=== PATIENT | female | born 1945 | race African-American/Black ===

== ENCOUNTER → 2017-01-03 | Outpatient (CLI) | payer MEDICARE | LOC: WI 08:32 | PROVIDERS: ATTEND Physician Assistant | DX: Z12.31 Encounter for screening mammogram for malignant neoplasm of breast (principal) | CPT/HCPCS: 77067; G0202 ==

== ENCOUNTER 2017-03-19 17:16 | Inpatient (IN) | payer MEDICARE ==
[2017-03-19] MEDS ORDERED: MORPHINE SULFATE 10 MG/ML INJ IV ONE (17:52)
[2017-03-19] MEDS ORDERED: ONDANSETRON HCL INJ/PF 4 MG/2 ML SDV IV ONE (17:53)
--- NOTE | 2017-03-19 17:55 | ER Document Report ---
ED Fall - General Chief Complaint: Fall Injury Stated Complaint: FALL/HIP PAIN Mode of Arrival: Wheelchair Information source: Patient Notes: This is a 71-year-old female who presents to the ER with left hip pain. She states that at about 1530 today she fell while gardening and landed on her left hip. She has had difficulty ambulating since and has had extreme pain. She denies hitting her head or loss of consciousness. She has had no chest pain or shortness of breath. She has no prior history of hip fracture. TRAVEL OUTSIDE OF THE [place] IN LAST 30 DAYS: No - Related data Allergies/Adverse Reactions: No Known Allergies Allergy (Verified 03/19/17 17:25) Past Medical History - Social History Smoking Status: Unknown if Ever Smoked Family History: Reviewed & Not Pertinent Patient has suicidal ideation: No Patient has homicidal ideation: No - Past Medical History Cardiac Medical History: Reports: Hx Hypercholesterolemia, Hx Hypertension Pulmonary Medical History: Reports: Hx Bronchitis Renal/ Medical History: Denies: Hx Peritoneal Dialysis GI Medical History: Reports: Hx Diverticulitis, Hx Gastroesophageal Reflux Disease Past Surgical History: Reports: Hx Cholecystectomy, Hx Hysterectomy, Hx Orthopedic Surgery, Hx Tubal Ligation - Immunizations Hx Diphtheria, Pertussis, Tetanus Vaccination: Yes Review of Systems - Review of Systems Constitutional: No symptoms reported. denies: Chills, Fever EENT: No symptoms reported Cardiovascular: No symptoms reported. denies: Chest pain, Palpitations Respiratory: No symptoms reported Gastrointestinal: No symptoms reported Genitourinary: No symptoms reported Musculoskeletal: See HPI Skin: No symptoms reported Hematologic/Lymphatic: No symptoms reported Neurological/Psychological: No symptoms reported. denies: Lost consciousness, Headaches Physical Exam - Vital signs Vitals: Temp Pulse Resp BP Pulse Ox 99.2 F 104 H 24 H 110/46 L 94 03/19/17 17:28 03/19/17 17:28 03/19/17 17:28 03/19/17 17:28 03/19/17 17:28 - Notes Notes: PHYSICAL EXAMINATION: GENERAL: Well-appearing, well-nourished and in mild to moderate distress secondary to left hip pain HEAD: Atraumatic, normocephalic. EYES: Pupils equal round and reactive to light, extraocular movements intact, sclera anicteric, conjunctiva are normal. ENT: nares patent, oropharynx clear without exudates. Moist mucous membranes. NECK: Normal range of motion, supple without lymphadenopathy LUNGS: Breath sounds clear to auscultation bilaterally and equal. No wheezes rales or rhonchi. HEART: Regular rate and rhythm without murmurs ABDOMEN: Soft, nontender, normoactive bowel sounds. No guarding, no rebound. No masses appreciated. EXTREMITIES: LLE: TTP left inguinal/hip area. No external swelling or deformity. Unable to ROM at hip secondary to pain.No shortening or external rotation of LLE. DNVI. NEUROLOGICAL: Cranial nerves grossly intact. No gross focal motor or sensory deficits appreciated PSYCH: Normal mood, normal affect. SKIN: Warm, Dry, normal turgor, no rashes or lesions noted. Course - Vital Signs Vital signs: Temp Pulse Resp BP Pulse Ox 98.2 F 81 18 114/55 L 95 03/19/17 21:40 03/19/17 21:40 03/19/17 21:40 03/19/17 21:40 03/19/17 21:40 - Laboratory Result Diagrams: 03/19/17 18:00 03/19/17 18:00 Laboratory results interpreted by me: 03/19/17 03/19/17 18:00 18:00 RBC 3.46 L Hgb 11.5 L Hct 33.3 L Sodium 134.3 L Potassium 3.4 L Chloride 96 L - Diagnostic Test Radiology reviewed: Reports reviewed - nondisplaced L femoral neck fracture Discharge - Discharge Clinical Impression: Closed left hip fracture Qualifiers: Encounter type: initial encounter Qualified Code(s): S72.002A - Fracture of unspecified part of neck of left femur, initial encounter for closed fracture Condition: Stable Disposition: ADMITTED INPATIENT Admitting Provider: Hospitalist - Dr. Guerrero Unit Admitted: Medical Floor
[2017-03-19 18:27] LABS: ABSOLUTE LYMPHOCYTES (AUTO) 1.9 10^3/uL (0.5-4.7); ABSOLUTE MONOCYTES (AUTO) 0.6 10^3/uL (0.1-1.4); ABSOLUTE NEUT (AUTO) 7.2 10^3/uL (1.7-8.2); BASOPHILS % (AUTO) 0.4 % (0-2); EOSINOPHILS % (AUTO) 0.5 % (0-6); HEMATOCRIT 33.3 % (36.0-47.0); HEMOGLOBIN 11.5 g/dL (12.0-15.5); HGB HCT DIFFERENCE 1.2; LYMPHOCYTES % (AUTO) 19.3 % (13-45); MEAN CORPUSCULAR HEMOGLOBIN 33.3 pg (27.0-33.4); MEAN CORPUSCULAR HGB CONC 34.7 g/dL (32.0-36.0); MEAN CORPUSCULAR VOLUME 96 fl (80-97); MONOCYTES % (AUTO) 6.3 % (3-13); RED BLOOD COUNT 3.46 10^6/uL (3.72-5.28); RED CELL DISTRIBUTION WIDTH 13.6 % (11.5-14.0); SEGMENTED NEUTROPHILS % (AUTO) 73.5 % (42-78); WHITE BLOOD COUNT 9.8 10^3/uL (4.0-10.5)
[2017-03-19 18:41] LABS: ALANINE AMINOTRANSFERASE 31 U/L (9-52); ALBUMIN 3.7 g/dL (3.5-5.0); ALKALINE PHOSPHATASE 101 U/L (38-126); ANION GAP 11 (5-19); ASPARTATE AMINO TRANSFERASE 24 U/L (14-36); BILIRUBIN,DIRECT 0.3 mg/dL (0.0-0.4); BILIRUBIN,TOTAL 0.8 mg/dL (0.2-1.3); BLOOD UREA NITROGEN 20 mg/dL (7-20); CALCIUM 9.2 mg/dL (8.4-10.2); CARBON DIOXIDE 27 mmol/L (22-30); CHLORIDE 96 mmol/L (98-107); CREATININE RESULT 0.89 mg/dL (0.52-1.25); GLUCOSE 91 mg/dL (75-110); POTASSIUM 3.4 mmol/L (3.6-5.0); SODIUM 134.3 mmol/L (137-145); TOTAL PROTEIN 7.1 g/dL (6.3-8.2)
[2017-03-19 19:12] LABS: PROTHROMBIN TIME 14.8 SEC (11.4-15.4)
[2017-03-19 19:13] LABS: PARTIAL THROMBOPLASTIN TIME 23.6 SEC (23.5-35.8)
[2017-03-19] MEDS ORDERED: HYDROMORPHONE HCL INJ/PF 2 MG/ML AMPULE IV ONE (20:04)
[2017-03-19] MEDS ORDERED: IPRATROPIUM/ALBUTEROL 0.5-2.5 MG/3 ML AMPUL NEB PRN (20:25)
[2017-03-19] MEDS ORDERED: MAG HYDROX/AL HYDROX/SIMETH SUSP 30 ML UDCUP PO PRN (20:25)
[2017-03-19] MEDS ORDERED: MAGNESIUM HYDROXIDE SUSP 30 ML UDCUP PO PRN (20:25)
[2017-03-19] MEDS ORDERED: HYDROMORPHONE HCL INJ/PF 2 MG/ML AMPULE IV PRN ×2 (20:30)
[2017-03-19] MEDS ORDERED: KETOROLAC TROMETHAMINE INJ/PF 30 MG/1 ML SDV IV ONE (20:31)
[2017-03-19] MEDS ORDERED: KETOROLAC TROMETHAMINE INJ/PF 30 MG/1 ML SDV IV PRN (20:31)
[2017-03-20] MEDS: HEPARIN SOD (PORCINE) 5,000 UNIT/ML 1 ML SYRINGE SUBCUT SCH ×4 (02:24→22:52)
[2017-03-20 04:46] LABS: ABSOLUTE BASOPHILS # (AUTO) 0.1 10^3/uL (0.0-0.2); ABSOLUTE EOSINOPHILS # (AUTO) 0.2 10^3/uL (0.0-0.6); ABSOLUTE LYMPHOCYTES (AUTO) 1.6 10^3/uL (0.5-4.7); ABSOLUTE MONOCYTES (AUTO) 0.6 10^3/uL (0.1-1.4); ABSOLUTE NEUT (AUTO) 4.6 10^3/uL (1.7-8.2); BASOPHILS % (AUTO) 0.9 % (0-2); EOSINOPHILS % (AUTO) 2.2 % (0-6); HEMATOCRIT 33.1 % (36.0-47.0); HEMOGLOBIN 11.4 g/dL (12.0-15.5); HGB HCT DIFFERENCE 1.1; LYMPHOCYTES % (AUTO) 22.4 % (13-45); MEAN CORPUSCULAR HEMOGLOBIN 33.1 pg (27.0-33.4); MEAN CORPUSCULAR HGB CONC 34.6 g/dL (32.0-36.0); MEAN CORPUSCULAR VOLUME 96 fl (80-97); MONOCYTES % (AUTO) 8.1 % (3-13); RED BLOOD COUNT 3.46 10^6/uL (3.72-5.28); RED CELL DISTRIBUTION WIDTH 13.5 % (11.5-14.0); SEGMENTED NEUTROPHILS % (AUTO) 66.4 % (42-78); WHITE BLOOD COUNT 6.9 10^3/uL (4.0-10.5)
[2017-03-20 05:07] LABS: ANION GAP 10 (5-19); BLOOD UREA NITROGEN 15 mg/dL (7-20); CALCIUM 8.8 mg/dL (8.4-10.2); CARBON DIOXIDE 27 mmol/L (22-30); CHLORIDE 101 mmol/L (98-107); CREATININE RESULT 0.79 mg/dL (0.52-1.25); GLUCOSE 95 mg/dL (75-110); POTASSIUM 3.7 mmol/L (3.6-5.0); SODIUM 137.5 mmol/L (137-145)
[2017-03-20] MEDS ORDERED: FLUTICASONE NASAL SPRAY 50 MCG/SPRY 120 SPRAY/16 GM NASL PRN (07:53)
[2017-03-20] MEDS ORDERED: ONDANSETRON 4 MG TAB.RAPDIS PO PRN (07:53)
[2017-03-20] MEDS ORDERED: (PENDING PHARMACY ID) (Pramipexole Di-Hcl [Mirapex] 0.125 MG) PO PRN (07:53)
[2017-03-20] MEDS: SUCRALFATE 1 GM TABLET PO SCH ×4 (08:57→22:51)
[2017-03-20] MEDS ORDERED: LUT PO SCH (10:00)
[2017-03-20] MEDS ORDERED: MULTIVITAMINS W MINERALS PO SCH (10:00)
[2017-03-20] MEDS ORDERED: (PENDING PHARMACY ID) (Valsartan/Hydrochlorothiazide [Diovan Hct 160-25 Mg Tablet] 1 TAB) PO SCH (10:00)
[2017-03-20] MEDS ORDERED: (PENDING PHARMACY ID) (Potassium Chloride [Potassium Chloride] 10 MEQ) PO SCH (10:00)
--- NOTE | 2017-03-20 10:23 | EKG REPORT ---
SEVERITY:- BORDERLINE ECG - SINUS RHYTHM BORDERLINE T WAVE ABNORMALITIES : Confirmed by: Caity Vera 20-Mar-2017 10:22:43
[2017-03-20] MEDS: FLUTICASONE PROPIONATE HFA 110 MCG/PUFF 12 GM MDI IH SCH ×2 (10:45→19:50)
[2017-03-20] MEDS: ALBUTEROL SULFATE HFA (90 MCG/PUFF) 200 PUFF/8.5 GM MDI IH SCH ×3 (10:49→19:50)
--- NOTE | 2017-03-20 11:46 | PDOC PROGRESS REPORT ---
Subjective Progress Note for:: 03/20/17 Subjective:: Patient seen on morning rounds. She is presently resting in bed sleeping. Her daughter is at the bedside. Patient awakens easily to verbal stimuli. She is complaining of mild to moderate pain in her left hip. She is presently nothing by mouth awaiting surgery this afternoon with Dr. Alexandra Belcher. She denies any other complaints the present time. She denies any chest pain, cough, shortness breath, or dyspnea. She denies any nausea, vomiting, abdominal pain or diarrhea. Rest of the review of systems is negative. Physical Exam Vital Signs: Temp Pulse Resp BP Pulse Ox 99.7 F 86 16 136/60 H 93 03/20/17 07:00 03/20/17 07:40 03/20/17 07:00 03/20/17 07:00 03/20/17 07:00 Intake & Output 03/19/17 03/20/17 03/21/17 06:59 06:59 06:59 Intake Total 0 Output Total 1900 Balance -1900 Weight 72.7 kg General appearance: PRESENT: no acute distress, thin, well-developed, well- nourished Head exam: PRESENT: atraumatic, normocephalic Eye exam: PRESENT: conjunctiva pink, EOMI, PERRLA. ABSENT: scleral icterus Ear exam: PRESENT: normal external ear exam Mouth exam: PRESENT: moist, tongue midline Neck exam: ABSENT: carotid bruit, JVD, lymphadenopathy, thyromegaly Respiratory exam: PRESENT: clear to auscultation sravanthi. ABSENT: rales, rhonchi, wheezes Cardiovascular exam: PRESENT: RRR. ABSENT: diastolic murmur, rubs, systolic murmur Pulses: PRESENT: normal dorsalis pedis pul Vascular exam: PRESENT: normal capillary refill GI/Abdominal exam: PRESENT: normal bowel sounds, soft. ABSENT: distended, guarding, mass, organolmegaly, rebound, tenderness Rectal exam: PRESENT: deferred Extremities exam: PRESENT: full ROM, tenderness - left hip. ABSENT: calf tenderness, clubbing, pedal edema Musculoskeletal exam: PRESENT: tenderness - left hip Neurological exam: PRESENT: alert, awake, oriented to person, oriented to place , oriented to time, oriented to situation, CN II-XII grossly intact. ABSENT: motor sensory deficit Psychiatric exam: PRESENT: appropriate affect, normal mood. ABSENT: homicidal ideation, suicidal ideation Skin exam: PRESENT: dry, intact, warm. ABSENT: cyanosis, rash Results Laboratory Results: 03/20/17 03:41 03/20/17 03:41 03/20/17 03/20/17 03:41 03:41 WBC 6.9 RBC 3.46 L Hgb 11.4 L Hct 33.1 L MCV 96 MCH 33.1 MCHC 34.6 RDW 13.5 Plt Count 183 Seg Neutrophils % 66.4 Lymphocytes % 22.4 Monocytes % 8.1 Eosinophils % 2.2 Basophils % 0.9 Absolute Neutrophils 4.6 Absolute Lymphocytes 1.6 Absolute Monocytes 0.6 Absolute Eosinophils 0.2 Absolute Basophils 0.1 Sodium 137.5 Potassium 3.7 Chloride 101 Carbon Dioxide 27 Anion Gap 10 BUN 15 Creatinine 0.79 Est GFR ( Amer) > 60 Est GFR (Non-Af Amer) > 60 Glucose 95 Calcium 8.8 Impressions: Hip X-Ray 03/19/17 17:52 IMPRESSION: Given history of fall, a subtle lucency seen traversing the left femoral neck without definite cortical disruption is concerning for a nondisplaced femoral neck fracture. Repeat imaging with attention to patient positioning or noncontrast CT imaging of the hip for better characterization. Pelvis CT 03/19/17 18:38 IMPRESSION: Incomplete fracture of the left femoral neck anterior cortex as detailed above. Ribera images were saved to this examination. Assessment & Plan - Diagnosis (1) Closed left hip fracture Qualifiers: Encounter type: initial encounter Qualified Code(s): S72.002A - Fracture of unspecified part of neck of left femur, initial encounter for closed fracture Is this a current diagnosis for this admission?: YesPlan: With orthopedics, Dr Alexandra Belcher, plan for surgery this afternoon (2) Essential hypertension Is this a current diagnosis for this admission?: YesPlan: Continue home medication she is presently normotensive. (3) Chronic prescription opiate use Is this a current diagnosis for this admission?: YesPlan: Patient has chronic severe back pain she takes morphine and oxycodone routinely daily (4) Chronic back pain Qualifiers: Back pain location: low back pain Sciatica presence: with sciatica Is this a current diagnosis for this admission?: YesPlan: Continue home medications. (5) Dyslipidemia Is this a current diagnosis for this admission?: YesPlan: Continue statin - Time Time Spent with patient: 25-34 minutes Critical Time spent with patient: 15-24 minutes Medications reviewed and adjusted accordingly: Yes
[2017-03-20] MEDS: DOCUSATE SODIUM 100 MG CAPSULE PO SCH ×2 (12:41→19:50)
[2017-03-20] MEDS: DILTIAZEM HCL 120 MG CAP.SR.24H PO SCH (12:41)
[2017-03-20] MEDS: LUBIPROSTONE 24 MCG CAPSULE PO SCH ×2 (12:41→19:50)
[2017-03-20] MEDS: MULTIVITAMIN TABLET PO SCH (12:41)
[2017-03-20] MEDS: POTASSIUM CHLORIDE 10 MEQ TABLET.SA PO SCH (12:41)
[2017-03-20] MEDS: VALSARTAN 160 MG TABLET PO SCH (12:41)
[2017-03-20] MEDS: HYDROCHLOROTHIAZIDE 25 MG TABLET PO SCH (12:41)
[2017-03-20] MEDS: DICYCLOMINE HCL 20 MG TABLET PO SCH ×4 (12:41→22:51)
[2017-03-20] MEDS: ONDANSETRON HCL INJ/PF 4 MG/2 ML SDV IV PRN (13:33)
[2017-03-20] MEDS: ACETAMINOPHEN 325 MG TABLET PO PRN (13:48)
[2017-03-20] MEDS ORDERED: ACETAMINOPHEN 325 MG TABLET PO PRN (13:52)
[2017-03-20] MEDS ORDERED: FENTANYL CITRATE INJ/PF 100 MCG/2 ML AMPUL ONE ×2 (15:48→15:49)
[2017-03-20] MEDS ORDERED: EPHEDRINE SULFATE INJ 50 MG/1 ML AMPULE ONE (15:49)
[2017-03-20] MEDS ORDERED: MIDAZOLAM 2 MG/2 ML INJ ONE (15:49)
[2017-03-20] MEDS ORDERED: ONDANSETRON HCL INJ/PF 4 MG/2 ML SDV ONE (15:49)
[2017-03-20] MEDS ORDERED: PROPOFOL INJ 200 MG/20 ML VIAL IV ONE (15:49)
[2017-03-20] MEDS ORDERED: CEFAZOLIN INJ 1 GM VIAL ONE ×2 (16:27→22:31)
[2017-03-20] MEDS ORDERED: FENTANYL CITRATE INJ/PF 100 MCG/2 ML AMPUL IV PRN ×3 (16:52)
[2017-03-20] MEDS ORDERED: DIPHENHYDRAMINE HCL 50 MG/ML VIAL IV PRN (16:52)
[2017-03-20] MEDS ORDERED: PROMETHAZINE HCL INJ 25 MG/1 ML VIAL IV PRN (16:52)
--- NOTE | 2017-03-20 18:07 | PDOC CONSULTATION ---
History of Present Illness Admission Date/PCP: 03/20/17 13:00 TYESHA GARDNER PA-C Patient complains of: Left hip pain with weightbearing. History of Present Illness: CIERRA DAVIS is a 71 year old female who is brought to the ER for significant pain with attempted weightbearing in the left hip. Patient states having a fall onto the left side while gardening. ER evaluated the patient and noted the patient had a nondisplaced femoral neck fracture on the left side. This was confirmed also with a CT scan. Patient denies any other extremity injury. Denies any numbness attending or paresthesias. Denies any head trauma. Denies any previous orthopedic injuries or surgeries. States pain is 10 out of 10 with attempted weightbearing. At rest pain is down to a 4 out of 10. Attempted pain with any attempt of range of motion of the hip. Case the pain anteriorly. Past Medical History Cardiac Medical History: Reports: Hyperlipidema, Hypertension Pulmonary Medical History: Reports: Bronchitis GI Medical History: Reports: Diverticulitis, Gastroesophageal Reflux Disease Hematology: Reports: Anemia Past Surgical History Past Surgical History: Reports: Cholecystectomy, Hysterectomy, Orthopedic Surgery, Tubal Ligation Social History Smoking Status: Current Every Day Smoker Number of Years Smokin Last Time Smoked: 03/19/2017 Frequency of Alcohol Use: None Hx Recreational Drug Use: No Drugs: None Hx Prescription Drug Abuse: No - Advance Directive Resuscitation Status: Full Code Family History Family History: Reviewed & Not Pertinent Parental Family History Reviewed: No Children Family History Reviewed: No Sibling(s) Family History Reviewed.: No Medication/Allergy Home Medications: Gabapentin [Neurontin 300 Mg Capsule] 300 mg PO TIDP PRN 06/26/12 Montelukast Sodium [Singulair 10 Mg Tablet] 10 mg PO QHS 06/26/12 Multivitamins W-Minerals/Lut [Vitrum Senior Tablet] 1 each PO DAILY 06/26/12 [place]-3 Fatty Acids/Fish Oil [Fish Oil 1,000 Mg Capsule] 1 each PO TID 06/26/12 Pramipexole Di-HCl [Mirapex] 0.125 mg PO HSP PRN 06/26/12 Valsartan/Hydrochlorothiazide [Diovan Hct 160-25 mg Tablet] 1 tab PO DAILY 06/26 Dicyclomine HCl [Bentyl 20 mg Tablet] 20 mg PO QID #14 tablet 10/31/15 Sucralfate [Carafate 1 gm Tablet] 1 gm PO ACHS #120 tablet 11/05/15 Albuterol Sulfate [Proair HFA Inhalation Aerosol 8.5 gm MDI] 2 puff IH Q4H PRN 03/20/17 Aspirin [Aspirin EC] 81 mg PO DAILY 03/20/17 Diclofenac Sodium [Voltaren] 1 applic TP QIDP PRN 03/20/17 Diclofenac Sodium [Voltaren] 1 applic TP TIDP PRN 03/20/17 Diltiazem HCl [Cardizem Cd 120 mg Capsule] 1 cap.sr PO DAILY 03/20/17 Esomeprazole Magnesium [Nexium] 40 mg PO DAILY 03/20/17 Fluticasone Propionate [Flonase Nasal [place] 50 Mcg/[place] 16 gm] 1 spray NASL DAILYP PRN 03/20/17 Fluticasone Propionate [Flovent Hfa 110 Mcg Inhalation Aerosol 12 gm] 1 inh IH BID 03/20/17 Lubiprostone [Amitiza 24 Mcg Capsule] 24 mcg PO BID 03/20/17 Morphine Sulfate [Morphine Sulfate ER] 30 mg PO BID 03/20/17 Olopatadine HCl [Pataday] 1 drop RT_EYE DAILY 03/20/17 Ondansetron [Ondansetron Odt] 8 mg PO BIDP PRN 03/20/17 Oxycodone HCl 30 mg PO TID 03/20/17 Potassium Chloride 10 meq PO DAILY 03/20/17 Allergies/Adverse Reactions: No Known Allergies Allergy (Verified 03/19/17 17:25) Physical Exam Vital Signs: Temp Pulse Resp BP Pulse Ox 37.6 C 87 16 136/60 H 94 03/20/17 07:00 03/20/17 16:23 03/20/17 16:23 03/20/17 07:00 03/20/17 16:23 Adult Front & Back Image: 1 - Patient is tender over the left groin. Tender palpation anterior hip. Any attempted range of motion of the left hip causes significant pain. Limited range of motion due to the significant pain. No leg length discrepancy or deformity. Good sensation to light touch distally with the good capillary refill. She has motor 5 out of 5 distally. Results Impressions: Pelvis CT 03/19/17 18:38 IMPRESSION: Incomplete fracture of the left femoral neck anterior cortex as detailed above. Ribera images were saved to this examination. Status: Image reviewed by me - Nondisplaced femoral neck fracture left side. Seen on both the plain x-rays and CT scan. Assessment & Plan - Diagnosis (1) Closed left hip fracture Qualifiers: Encounter type: initial encounter Qualified Code(s): S72.002A - Fracture of unspecified part of neck of left femur, initial encounter for closed fracture Is this a current diagnosis for this admission?: YesPlan: 71-year-old female with nondisplaced left hip fracture. Patient was placed nothing by mouth. She was consented for progress pinning of left hip fracture. Risk and benefits were discussed. Postoperative care was discussed. Patient proceed is still to go ahead and consented proceed with surgery. Continue pain control as tolerated. We will proceed to the OR today.
--- NOTE | 2017-03-20 18:11 | Operative Report ---
Operative Report DATE OF SURGERY: 03/20/17 PREOPERATIVE DIAGNOSIS: Nondisplaced left femoral neck fracture POSTOPERATIVE DIAGNOSIS: Same OPERATION: Percutaneous pinning of left femoral neck fracture SURGEON: CHAVA GAONA ANESTHESIA: GA TISSUE REMOVED OR ALTERED: None COMPLICATIONS: None ESTIMATED BLOOD LOSS: 20 mL INTRAOPERATIVE FINDINGS: As above PROCEDURE: Patient was seen and evaluated in the preoperative holding area. The left lower extremity was initialized and marked. Patient received 1g of Ancef IV for bacterial prophylaxis. Patient was taken back to the operative room where transferred to the operative table and placed under general anesthesia. Once they were adequately anesthetized the right lower extremity is placed in a flexed abducted external rotated position and carefully padded and the left lower extremity was placed in traction. A surgical team debriefing was performed ensuring all instrumentation was available, the surgical procedure was discussed with possible concerns reviewed. Traction, adduction and internal rotation of the lower extremity was done C-arm fluoroscopy was used confirming anatomic reduction of the femoral neck fracture. The lower extremity was prepped with ChloraPrep and draped in a sterile fashion. A timeout was done identifying correct patient, procedure and extremity everyone in attendance agree with this and verbalized no concerns. Surgical incision was made careful dissection was done through the fascia down to the lateral cortex of the femur. With the use of a threaded K wire I drilled along the more superior anterior aspect of the neck crossing the fracture line. Lateral projection was then done confirming an anterior superior placed wire. I then used the aiming device and placed a second wire posterior and superior and lastly a wire was placed along the inferior aspect of the neck along the calcar. This gave me a inverted triangular configuration. AP and lateral projections were done confirming appropriate placement of my guidewires. I then placed 3 partially-threaded 6.5 mm cannulated screws lengths being all 3 measuring 90mm. I got excellent fixation across the fracture into the subchondral bone. AP lateral radiographs were done demonstrating no evidence of interarticular screw penetration. Then under live fluoroscopy the hip was ranged to confirm there is no evidence of intra- articular penetration. I then copiously irrigated the wound with normal saline. A peripheral vasculature was carefully coagulated. The deep fascia was closed with interrupted 2-0 Vicryl suture. Skin was closed with jazz and a Tegaderm dressing was then placed.
[2017-03-20] MEDS ORDERED: RINGERS SOLUTION,LACTATED 1,000 ML IV PRN (19:29)
[2017-03-20] MEDS: OLOPATADINE HCL 0.1% OPH SOLN 5 ML OD SCH (22:51)
[2017-03-20] MEDS: MONTELUKAST SODIUM 10 MG TABLET PO SCH (22:51)
[2017-03-20] MEDS: ATORVASTATIN CALCIUM 20 MG TABLET PO SCH (22:52)
[2017-03-20] MEDS: CEFAZOLIN 2 GM/D5W RTU 2 GM/50 ML RTUPB IV SCH (22:55)
[2017-03-20] MEDS: OXYCODONE HCL IR 5 MG TABLET PO PRN (23:22)
[2017-03-21] MEDS: HEPARIN SOD (PORCINE) 5,000 UNIT/ML 1 ML SYRINGE SUBCUT SCH ×3 (06:55→22:27)
[2017-03-21] MEDS: CEFAZOLIN 2 GM/D5W RTU 2 GM/50 ML RTUPB IV SCH (07:12)
[2017-03-21] MEDS: OXYCODONE HCL IR 5 MG TABLET PO PRN ×2 (08:24→17:27)
[2017-03-21] MEDS: SUCRALFATE 1 GM TABLET PO SCH ×4 (08:24→22:26)
[2017-03-21] MEDS: ACETAMINOPHEN 325 MG TABLET PO PRN (09:09)
[2017-03-21] MEDS: LUBIPROSTONE 24 MCG CAPSULE PO SCH ×2 (09:09→17:27)
[2017-03-21] MEDS: HYDROCHLOROTHIAZIDE 25 MG TABLET PO SCH (09:10)
[2017-03-21] MEDS: POTASSIUM CHLORIDE 10 MEQ TABLET.SA PO SCH (09:10)
[2017-03-21] MEDS: VALSARTAN 160 MG TABLET PO SCH (09:10)
[2017-03-21] MEDS: ASPIRIN 81 MG TABLET, ENT COATED PO SCH (09:10)
[2017-03-21] MEDS: DICYCLOMINE HCL 20 MG TABLET PO SCH ×3 (09:11→17:32)
[2017-03-21] MEDS: MULTIVITAMIN TABLET PO SCH (09:11)
[2017-03-21] MEDS: DILTIAZEM HCL 120 MG CAP.SR.24H PO SCH (09:11)
[2017-03-21] MEDS: DOCUSATE SODIUM 100 MG CAPSULE PO SCH ×2 (09:11→17:28)
[2017-03-21] MEDS: ALBUTEROL SULFATE HFA (90 MCG/PUFF) 200 PUFF/8.5 GM MDI IH SCH ×3 (09:12→17:28)
[2017-03-21] MEDS: OLOPATADINE HCL 0.1% OPH SOLN 5 ML OD SCH ×2 (09:13→22:27)
[2017-03-21] MEDS: FLUTICASONE PROPIONATE HFA 110 MCG/PUFF 12 GM MDI IH SCH ×2 (10:00→17:32)
[2017-03-21 10:35] LABS: ANION GAP 9 (5-19); BLOOD UREA NITROGEN 10 mg/dL (7-20); CALCIUM 8.8 mg/dL (8.4-10.2); CARBON DIOXIDE 24 mmol/L (22-30); CHLORIDE 100 mmol/L (98-107); CREATININE RESULT 0.68 mg/dL (0.52-1.25); GLUCOSE 145 mg/dL (75-110); POTASSIUM 3.4 mmol/L (3.6-5.0); SODIUM 132.6 mmol/L (137-145)
[2017-03-21 13:31] LABS: ABSOLUTE EOSINOPHILS # (AUTO) 0.1 10^3/uL (0.0-0.6); ABSOLUTE LYMPHOCYTES (AUTO) 0.6 10^3/uL (0.5-4.7); ABSOLUTE MONOCYTES (AUTO) 0.4 10^3/uL (0.1-1.4); BASOPHILS % (AUTO) 0.5 % (0-2); EOSINOPHILS % (AUTO) 0.7 % (0-6); HEMATOCRIT 35.6 % (36.0-47.0); HEMOGLOBIN 12.5 g/dL (12.0-15.5); HGB HCT DIFFERENCE 1.9; MEAN CORPUSCULAR HEMOGLOBIN 33.4 pg (27.0-33.4); MEAN CORPUSCULAR HGB CONC 35.1 g/dL (32.0-36.0); MEAN CORPUSCULAR VOLUME 95 fl (80-97); MONOCYTES % (AUTO) 4.5 % (3-13); RED BLOOD COUNT 3.74 10^6/uL (3.72-5.28); RED CELL DISTRIBUTION WIDTH 13.5 % (11.5-14.0); SEGMENTED NEUTROPHILS % (AUTO) 87.3 % (42-78); WHITE BLOOD COUNT 9.2 10^3/uL (4.0-10.5)
--- NOTE | 2017-03-21 13:39 | PDOC PROGRESS REPORT ---
Subjective Progress Note for:: 03/21/17 Subjective:: Patient seen on morning rounds. She is presently resting in bed sleeping. Her daughter is at the bedside. Patient awakens easily to verbal stimuli. She is complaining of mild to moderate pain in her left hip. She had surgery last evening to fix her left hip fracture. She denies any other complaints the present time. She denies any chest pain, cough, shortness breath, or dyspnea. She denies any nausea, vomiting, abdominal pain or diarrhea. Rest of the review of systems is negative. Physical Exam Vital Signs: Temp Pulse Resp BP Pulse Ox 99.1 F 104 H 18 129/80 H 99 03/21/17 12:00 03/21/17 12:00 03/21/17 12:00 03/21/17 12:00 03/21/17 12:00 Intake & Output 03/20/17 03/21/17 03/22/17 06:59 06:59 06:59 Intake Total 2323 Output Total 2655 Balance -332 Weight 72 kg General appearance: PRESENT: no acute distress, thin, well-developed, well- nourished Head exam: PRESENT: atraumatic, normocephalic Eye exam: PRESENT: conjunctiva pink, EOMI, PERRLA. ABSENT: scleral icterus Ear exam: PRESENT: normal external ear exam Mouth exam: PRESENT: moist, tongue midline Neck exam: PRESENT: carotid bruit Respiratory exam: PRESENT: clear to auscultation sravanthi. ABSENT: rales, rhonchi, wheezes Cardiovascular exam: PRESENT: RRR. ABSENT: diastolic murmur, rubs, systolic murmur Pulses: PRESENT: normal dorsalis pedis pul Vascular exam: PRESENT: normal capillary refill GI/Abdominal exam: PRESENT: normal bowel sounds, soft. ABSENT: distended, guarding, mass, organolmegaly, rebound, tenderness Rectal exam: PRESENT: deferred Extremities exam: PRESENT: tenderness - left hip Musculoskeletal exam: PRESENT: normal inspection, tenderness - left hip Neurological exam: PRESENT: alert, awake, oriented to person, oriented to place , oriented to time, oriented to situation, CN II-XII grossly intact. ABSENT: motor sensory deficit Psychiatric exam: PRESENT: appropriate affect, normal mood. ABSENT: homicidal ideation, suicidal ideation Skin exam: PRESENT: dry, intact, warm. ABSENT: cyanosis, rash Results Laboratory Results: 03/21/17 10:02 03/21/17 10:02 Sodium 132.6 L Potassium 3.4 L Chloride 100 Carbon Dioxide 24 Anion Gap 9 BUN 10 Creatinine 0.68 Est GFR ( Amer) > 60 Est GFR (Non-Af Amer) > 60 Glucose 145 H Calcium 8.8 Impressions: Pelvis CT 03/19/17 18:38 IMPRESSION: Incomplete fracture of the left femoral neck anterior cortex as detailed above. Ribera images were saved to this examination. Fluoroscopy 03/20/17 00:00 IMPRESSION: Please see combined report for performance of procedure and radiologic supervision and interpretation. Hip X-Ray 03/21/17 00:00 IMPRESSION: Postop left hip as noted above Assessment & Plan - Diagnosis (1) Closed left hip fracture Qualifiers: Encounter type: initial encounter Qualified Code(s): S72.002A - Fracture of unspecified part of neck of left femur, initial encounter for closed fracture Is this a current diagnosis for this admission?: YesPlan: Patient is POD #1 ORIF left hip. Physical therapy for mobility. (2) Essential hypertension Is this a current diagnosis for this admission?: YesPlan: Continue home medication she is presently normotensive. (3) Chronic prescription opiate use Is this a current diagnosis for this admission?: YesPlan: Patient has chronic severe back pain she takes morphine and oxycodone routinely daily (4) Chronic back pain Qualifiers: Back pain location: low back pain Sciatica presence: with sciatica Is this a current diagnosis for this admission?: YesPlan: Continue home medications. (5) Dyslipidemia Is this a current diagnosis for this admission?: YesPlan: Continue statin - Time Time Spent with patient: 25-34 minutes Critical Time spent with patient: 15-24 minutes Medications reviewed and adjusted accordingly: Yes Anticipated discharge: Home with Homehealth
[2017-03-21] MEDS: ONDANSETRON HCL INJ/PF 4 MG/2 ML SDV IV PRN (15:54)
[2017-03-21] MEDS: GABAPENTIN 300 MG CAPSULE PO PRN (17:27)
[2017-03-21] MEDS: PRAMIPEXOLE DI-HCL 0.25 MG TABLET PO PRN ×2 (17:28→22:27)
--- NOTE | 2017-03-21 18:00 | PDOC PROGRESS REPORT ---
Subjective Progress Note for:: 03/21/17 Subjective:: Patient's pain is well-controlled. She ambulates today with therapy. No issues overnight. Physical Exam Vital Signs: Temp Pulse Resp BP Pulse Ox 37.8 C 98 18 152/79 H 100 03/21/17 16:00 03/21/17 16:00 03/21/17 16:00 03/21/17 16:00 03/21/17 16:00 Intake & Output 03/20/17 03/21/17 03/22/17 06:59 06:59 06:59 Intake Total 2323 800 Output Total 2651 2200 Balance -332 -1400 Weight 72 kg Adult Front & Back Image: 1 - Incision and dressing is dry clean and intact with no drainage. Some discomfort with range of motion but significant improvement from yesterday. Neurovascular intact distally. Results Laboratory Results: 03/21/17 10:02 03/21/17 10:02 03/21/17 03/21/17 10:02 10:02 WBC 9.2 RBC 3.74 Hgb 12.5 Hct 35.6 L MCV 95 MCH 33.4 MCHC 35.1 RDW 13.5 Plt Count 154 Seg Neutrophils % 87.3 H Lymphocytes % 7.0 L Monocytes % 4.5 Eosinophils % 0.7 Basophils % 0.5 Absolute Neutrophils 8.0 Absolute Lymphocytes 0.6 Absolute Monocytes 0.4 Absolute Eosinophils 0.1 Absolute Basophils 0.0 Sodium 132.6 L Potassium 3.4 L Chloride 100 Carbon Dioxide 24 Anion Gap 9 BUN 10 Creatinine 0.68 Est GFR ( Amer) > 60 Est GFR (Non-Af Amer) > 60 Glucose 145 H Calcium 8.8 Impressions: Pelvis CT 03/19/17 18:38 IMPRESSION: Incomplete fracture of the left femoral neck anterior cortex as detailed above. Ribera images were saved to this examination. Fluoroscopy 03/20/17 00:00 IMPRESSION: Please see combined report for performance of procedure and radiologic supervision and interpretation. Hip X-Ray 03/21/17 00:00 IMPRESSION: Postop left hip as noted above Status: Image reviewed by me Assessment & Plan - Diagnosis (1) Closed left hip fracture Qualifiers: Encounter type: initial encounter Qualified Code(s): S72.002A - Fracture of unspecified part of neck of left femur, initial encounter for closed fracture Is this a current diagnosis for this admission?: Yes (2) Femoral neck fracture Qualifiers: Encounter type: initial encounter Fracture type: closed Laterality : left Qualified Code(s): S72.002A - Fracture of unspecified part of neck of left femur, initial encounter for closed fracture Is this a current diagnosis for this admission?: YesPlan: Patient is postop day 1 from percutaneous pinning of a left femoral neck fracture. Continue physical therapy. Care for her primary service. Discharge planning for bed assignment with likelihood of needing group home facility. Continue DVT prophylaxis.
[2017-03-21] MEDS: MONTELUKAST SODIUM 10 MG TABLET PO SCH (22:26)
[2017-03-21] MEDS: ATORVASTATIN CALCIUM 20 MG TABLET PO SCH (22:26)
[2017-03-22] MEDS: DICYCLOMINE HCL 20 MG TABLET PO SCH ×5 (01:42→23:22)
[2017-03-22] MEDS: HEPARIN SOD (PORCINE) 5,000 UNIT/ML 1 ML SYRINGE SUBCUT SCH ×3 (05:44→23:22)
[2017-03-22] MEDS: MULTIVITAMIN TABLET PO SCH (09:36)
[2017-03-22] MEDS: ASPIRIN 81 MG TABLET, ENT COATED PO SCH (09:36)
[2017-03-22] MEDS: VALSARTAN 160 MG TABLET PO SCH (09:36)
[2017-03-22] MEDS: DOCUSATE SODIUM 100 MG CAPSULE PO SCH ×2 (09:36→16:46)
[2017-03-22] MEDS: HYDROCHLOROTHIAZIDE 25 MG TABLET PO SCH (09:36)
[2017-03-22] MEDS: ONDANSETRON HCL INJ/PF 4 MG/2 ML SDV IV PRN ×2 (09:37→23:20)
[2017-03-22] MEDS: POTASSIUM CHLORIDE 10 MEQ TABLET.SA PO SCH (09:37)
[2017-03-22] MEDS: DILTIAZEM HCL 120 MG CAP.SR.24H PO SCH (09:37)
[2017-03-22] MEDS: OLOPATADINE HCL 0.1% OPH SOLN 5 ML OD SCH ×2 (09:40→23:23)
[2017-03-22] MEDS: LUBIPROSTONE 24 MCG CAPSULE PO SCH ×2 (09:40→16:47)
[2017-03-22] MEDS: ALBUTEROL SULFATE HFA (90 MCG/PUFF) 200 PUFF/8.5 GM MDI IH SCH ×3 (09:41→17:52)
[2017-03-22] MEDS: SUCRALFATE 1 GM TABLET PO SCH ×4 (09:41→23:21)
[2017-03-22 10:14] LABS: ANION GAP 10 (5-19); BLOOD UREA NITROGEN 11 mg/dL (7-20); CALCIUM 8.9 mg/dL (8.4-10.2); CARBON DIOXIDE 25 mmol/L (22-30); CHLORIDE 102 mmol/L (98-107); CREATININE RESULT 0.86 mg/dL (0.52-1.25); GLUCOSE 130 mg/dL (75-110); POTASSIUM 3.7 mmol/L (3.6-5.0); SODIUM 136.5 mmol/L (137-145)
[2017-03-22] MEDS: GABAPENTIN 300 MG CAPSULE PO PRN (11:58)
[2017-03-22] MEDS ORDERED: METHYL SALICYLATE/MENTHOL BALM 29 GM TP PRN (13:08)
--- NOTE | 2017-03-22 15:24 | PDOC PROGRESS REPORT ---
Subjective Progress Note for:: 03/22/17 Subjective:: The patient was seen earlier today on rounds. The patient has participated in therapies yesterday. Pain overall is much improved since resuming home pain medications. The patient denies any nausea, vomiting, diarrhea, shortness of breath, dizziness, chest pain, heart palpitations, fevers, or chills. The patient has remained afebrile. Blood pressures have been in a good range. When prompted the patient voices no other concerns at this time. Review of systems: The rest of the review of systems is negative. Physical Exam Vital Signs: Temp Pulse Resp BP Pulse Ox 98.9 F 105 H 16 124/68 100 03/22/17 11:24 03/22/17 11:24 03/22/17 11:24 03/22/17 11:24 03/22/17 11:24 Intake & Output 03/20/17 03/21/17 03/22/17 23:59 23:59 23:59 Intake Total 1200 2163 186 Output Total 1055 4150 500 Balance 756 -4323 -406 Weight 72 kg 71.6 kg General appearance: PRESENT: no acute distress, cooperative, well-developed, well-nourished Head exam: PRESENT: atraumatic, normocephalic Eye exam: PRESENT: conjunctiva pink, EOMI, PERRLA. ABSENT: scleral icterus Ear exam: PRESENT: normal external ear exam Mouth exam: PRESENT: moist, tongue midline Neck exam: ABSENT: carotid bruit, JVD, lymphadenopathy, thyromegaly Respiratory exam: PRESENT: clear to auscultation sravanthi, symmetrical, unlabored. ABSENT: rales, rhonchi, tachypnea, wheezes Cardiovascular exam: PRESENT: RRR. ABSENT: diastolic murmur, rubs, systolic murmur Pulses: PRESENT: normal dorsalis pedis pul Vascular exam: PRESENT: normal capillary refill GI/Abdominal exam: PRESENT: normal bowel sounds, soft. ABSENT: distended, guarding, mass, organolmegaly, rebound, tenderness Rectal exam: PRESENT: deferred Extremities exam: PRESENT: full ROM. ABSENT: calf tenderness, clubbing, pedal edema Neurological exam: PRESENT: alert, awake, oriented to person, oriented to place , oriented to time, oriented to situation, CN II-XII grossly intact. ABSENT: motor sensory deficit Psychiatric exam: PRESENT: appropriate affect, normal mood. ABSENT: homicidal ideation, suicidal ideation Skin exam: PRESENT: dry, intact, warm. ABSENT: cyanosis, rash Results Laboratory Results: 03/21/17 10:02 03/22/17 09:43 03/22/17 09:43 Sodium 136.5 L Potassium 3.7 Chloride 102 Carbon Dioxide 25 Anion Gap 10 BUN 11 Creatinine 0.86 Est GFR ( Amer) > 60 Est GFR (Non-Af Amer) > 60 Glucose 130 H Calcium 8.9 Impressions: Pelvis CT 03/19/17 18:38 IMPRESSION: Incomplete fracture of the left femoral neck anterior cortex as detailed above. Ribera images were saved to this examination. Fluoroscopy 03/20/17 00:00 IMPRESSION: Please see combined report for performance of procedure and radiologic supervision and interpretation. Hip X-Ray 03/21/17 00:00 IMPRESSION: Postop left hip as noted above Assessment & Plan - Diagnosis (1) Femoral neck fracture Qualifiers: Encounter type: initial encounter Fracture type: closed Laterality : left Qualified Code(s): S72.002A - Fracture of unspecified part of neck of left femur, initial encounter for closed fracture Is this a current diagnosis for this admission?: YesPlan: The patient has no chest pain with therapies. The patient can be discharged with home health most likely in the a.m. Will [place] Ocasio and monitor. (2) Opiate dependence, continuous Is this a current diagnosis for this admission?: YesPlan: Resume the patient's home medications. She appears comfortable with this. (3) Chronic back pain Qualifiers: Back pain location: low back pain Sciatica presence: with sciatica Is this a current diagnosis for this admission?: Yes (4) Closed left hip fracture Qualifiers: Encounter type: initial encounter Qualified Code(s): S72.002A - Fracture of unspecified part of neck of left femur, initial encounter for closed fracture Is this a current diagnosis for this admission?: Yes (5) Dyslipidemia Is this a current diagnosis for this admission?: YesPlan: Will continue home medications. (6) Essential hypertension Is this a current diagnosis for this admission?: YesPlan: Will continue home medications. - Time Time Spent with patient: 25-34 minutes Medications reviewed and adjusted accordingly: Yes Anticipated discharge: Home with Homehealth Within: within 24 hours, within 48 hours Disposition: The patient is a full code. Pending patient's symptomatology and diagnostic findings will reevaluate in the a.m.
--- NOTE | 2017-03-22 15:47 | PDOC PROGRESS REPORT ---
Subjective Progress Note for:: 03/22/17 Subjective:: Patient doing well. States she is ready to go home. She will like to go home with home health. Denies fever chills or sweats. Physical Exam Vital Signs: Temp Pulse Resp BP Pulse Ox 98.9 F 105 H 16 124/68 100 03/22/17 11:24 03/22/17 11:24 03/22/17 11:24 03/22/17 11:24 03/22/17 11:24 Intake & Output 03/21/17 03/22/17 03/23/17 06:59 06:59 06:59 Intake Total 2323 1226 Output Total 2651 8390 Balance -332 -1824 Weight 72 kg 71.6 kg Musculoskeletal exam: PRESENT: other - Left hip: Dressing clean/dry/intact no erythema or drainage. Intact plantar flexion/dorsiflexion. No calf tenderness. Negative Homans Results Laboratory Results: 03/21/17 10:02 03/22/17 09:43 03/22/17 09:43 Sodium 136.5 L Potassium 3.7 Chloride 102 Carbon Dioxide 25 Anion Gap 10 BUN 11 Creatinine 0.86 Est GFR ( Amer) > 60 Est GFR (Non-Af Amer) > 60 Glucose 130 H Calcium 8.9 Impressions: Pelvis CT 03/19/17 18:38 IMPRESSION: Incomplete fracture of the left femoral neck anterior cortex as detailed above. Ribera images were saved to this examination. Fluoroscopy 03/20/17 00:00 IMPRESSION: Please see combined report for performance of procedure and radiologic supervision and interpretation. Hip X-Ray 03/21/17 00:00 IMPRESSION: Postop left hip as noted above Assessment & Plan - Diagnosis (1) Femoral neck fracture Qualifiers: Encounter type: initial encounter Fracture type: closed Laterality : left Qualified Code(s): S72.002A - Fracture of unspecified part of neck of left femur, initial encounter for closed fracture Is this a current diagnosis for this admission?: YesPlan: Status post closed reduction. Continues pinning left femoral neck fracture #1 physical therapy 50% weightbearing. Patient walked 250 feet today. #2 pain control #3 Xarelto for DVT prophylaxis #4 discharge planning patient has progressed appropriately in physical therapy and thus I feel safe for discharge home with home health. Orders have been written anticipated discharge 24 hours.
[2017-03-22] MEDS: FLUTICASONE PROPIONATE HFA 110 MCG/PUFF 12 GM MDI IH SCH (17:52)
[2017-03-22] MEDS: MONTELUKAST SODIUM 10 MG TABLET PO SCH (23:21)
[2017-03-22] MEDS: ATORVASTATIN CALCIUM 20 MG TABLET PO SCH (23:22)
[2017-03-22] MEDS: OXYCODONE HCL IR 5 MG TABLET PO PRN (23:25)
[2017-03-23] MEDS: GABAPENTIN 300 MG CAPSULE PO PRN (00:43)
[2017-03-23] MEDS: OXYCODONE HCL IR 5 MG TABLET PO PRN (03:00)
[2017-03-23] MEDS: HEPARIN SOD (PORCINE) 5,000 UNIT/ML 1 ML SYRINGE SUBCUT SCH (05:40)
--- NOTE | 2017-03-23 07:38 | Progress Note ---
Provider Note Provider Note: RYAN NORTON Search Criteria: Last Name 'Ryan' and First Name 'Marguerite' and = ' and Request Period = '09/24/16' to 03/23/17' - 1 out of 1 Recipients Selected. Fill Date Product, Str, Form Qty Days Pt ID Prescriber Written RX# N/R* Pharm MED+ ------ ---- --------- --- ------- ----- --------- ------ 03/18/2017 MORPHINE SULF ER 30 MG TABLET 60.00 30 [id number] 03/16/2017 [id number] N [id number] 60.0 03/18/2017 OXYCODONE HCL 30 MG TABLET 150.00 25 [id number] 03/16/2017 [id number] N [id number] 270.0 02/18/2017 MORPHINE SULF ER 30 MG TABLET 60.00 30 [id number] 02/18/2017 [id number] N [id number] 60.0 02/18/2017 OXYCODONE HCL 30 MG TABLET 150.00 25 [id number] 02/18/2017 [id number] N [id number] 270.0 01/21/2017 MORPHINE SULF ER 30 MG TABLET 60.00 30 [id number] 01/21/2017 [id number] N [id number] 60.0 01/21/2017 OXYCODONE HCL 30 MG TABLET 150.00 25 [id number] 01/21/2017 [id number] N [id number] 270.0 12/24/2016 MORPHINE SULF ER 30 MG TABLET 60.00 30 [id number] 12/24/2016 [id number] N [id number] 60.0 12/24/2016 OXYCODONE HCL 30 MG TABLET 150.00 30 [id number] 12/24/2016 [id number] N [id number] 225.0 11/26/2016 OXYCODONE HCL 30 MG TABLET 150.00 30 [id number] 11/26/2016 [id number] N [id number] 225.0 11/26/2016 MORPHINE SULF ER 30 MG TABLET 60.00 30 [id number] 11/26/2016 [id number] N [id number] 60.0 10/31/2016 MORPHINE SULF ER 30 MG TABLET 60.00 30 [id number] 10/29/2016 [id number] N [id number] 60.0 10/29/2016 OXYCODONE HCL 30 MG TABLET 150.00 30 [id number] 10/29/2016 [id number] N [id number] 225.0 10/04/2016 MORPHINE SULF ER 30 MG TABLET 60.00 30 [id number] 10/01/2016 [id number] N [id number] 60.0 10/01/2016 OXYCODONE HCL 30 MG TABLET 150.00 30 [id number] 10/01/2016 [id number] N [id number] 225.0 [id number] KIM FANG MD; [facility] [id number] Pharmacies that dispensed prescriptions listed --------- [id number] AGUSTÍN ARMSTRONG; [facility] [id number],
[2017-03-23 10:04] VITALS: BP 106/56
[2017-03-23] MEDS: DOCUSATE SODIUM 100 MG CAPSULE PO SCH (10:33)
[2017-03-23] MEDS: MULTIVITAMIN TABLET PO SCH (10:34)
[2017-03-23] MEDS: ASPIRIN 81 MG TABLET, ENT COATED PO SCH (10:34)
[2017-03-23] MEDS: HYDROCHLOROTHIAZIDE 25 MG TABLET PO SCH (10:34)
[2017-03-23] MEDS: POTASSIUM CHLORIDE 10 MEQ TABLET.SA PO SCH (10:34)
[2017-03-23] MEDS: ALBUTEROL SULFATE HFA (90 MCG/PUFF) 200 PUFF/8.5 GM MDI IH SCH (10:35)
[2017-03-23] MEDS: SUCRALFATE 1 GM TABLET PO SCH (10:35)
[2017-03-23] MEDS: VALSARTAN 160 MG TABLET PO SCH (10:35)
[2017-03-23] MEDS: OLOPATADINE HCL 0.1% OPH SOLN 5 ML OD SCH (10:36)
[2017-03-23] MEDS: DILTIAZEM HCL 120 MG CAP.SR.24H PO SCH (10:39)
[2017-03-23] MEDS: LUBIPROSTONE 24 MCG CAPSULE PO SCH (10:39)
[2017-03-23] MEDS: FLUTICASONE PROPIONATE HFA 110 MCG/PUFF 12 GM MDI IH SCH (10:41)
[2017-03-23] MEDS: DICYCLOMINE HCL 20 MG TABLET PO SCH ×2 (10:41→11:35)
--- NOTE | 2017-03-23 11:15 | PDOC DISCHARGE SUMMARY ---
General - Admit/Disc Date/PCP Admission Date/Primary Care Provider: 03/20/17 13:00 TYESHA GARDNER PA-C Operative orthopedist: Dr. Morris Discharge Date: 03/23/17 - Discharge Diagnosis (1) Femoral neck fracture Is this a current diagnosis for this admission?: Yes (2) Opiate dependence, continuous Is this a current diagnosis for this admission?: Yes (3) Chronic back pain Is this a current diagnosis for this admission?: Yes (4) Closed left hip fracture Is this a current diagnosis for this admission?: Yes (5) Dyslipidemia Is this a current diagnosis for this admission?: Yes (6) Essential hypertension Is this a current diagnosis for this admission?: Yes - Additional Information Resuscitation Status: Full Code Discharge Diet: As Tolerated Discharge Activity: Activity As Tolerated Home Medications: Gabapentin [Neurontin 300 mg Capsule] 300 mg PO TIDP PRN 06/26/12 Montelukast Sodium [Singulair 10 mg Tablet] 10 mg PO QHS 06/26/12 Multivitamins W-Minerals/Lut [Vitrum Senior Tablet] 1 each PO DAILY 06/26/12 [place]-3 Fatty Acids/Fish Oil [Fish Oil 1,000 mg Capsule] 1 each PO TID 06/26/12 Pramipexole Di-HCl [Mirapex] 0.125 mg PO HSP PRN 06/26/12 Dicyclomine HCl [Bentyl 20 mg Tablet] 20 mg PO QID #14 tablet 10/31/15 Sucralfate [Carafate 1 gm Tablet] 1 gm PO ACHS #120 tablet 11/05/15 Albuterol Sulfate [Proair HFA Inhalation Aerosol 8.5 gm MDI] 2 puff IH Q4H PRN 03/20/17 Aspirin [Aspirin EC] 81 mg PO DAILY 03/20/17 Diclofenac Sodium [Voltaren] 1 applic TP QIDP PRN 03/20/17 Diclofenac Sodium [Voltaren] 1 applic TP TIDP PRN 03/20/17 Diltiazem HCl [Cardizem Cd 120 mg Capsule] 1 cap.sr PO DAILY 03/20/17 Esomeprazole Magnesium [Nexium] 40 mg PO DAILY 03/20/17 Fluticasone Propionate [Flonase Nasal Sarah 50 Mcg/Sarah 16 gm] 1 spray NASL DAILYP PRN 03/20/17 Fluticasone Propionate [Flovent Hfa 110 Mcg Inhalation Aerosol 12 gm] 1 inh IH BID 03/20/17 Lubiprostone [Amitiza 24 Mcg Capsule] 24 mcg PO BID 03/20/17 Morphine Sulfate [Morphine Sulfate ER] 30 mg PO BID 03/20/17 Olopatadine HCl [Pataday] 1 drop RT_EYE DAILY 03/20/17 Ondansetron [Ondansetron Odt] 8 mg PO BIDP PRN 03/20/17 Oxycodone HCl 30 mg PO TID 03/20/17 Potassium Chloride 10 meq PO DAILY 03/20/17 Prednisone See Protocol PO ASDIR 03/20/17 Valsartan [Diovan 160 mg Tablet] 160 mg PO DAILY #30 tablet 03/23/17 History of Present Illness Patient complains of: Falling History of Present Illness: CIERRA DAVIS is a 71 year old female with a past medical history of opiate dependency who presented to the ER with left hip pain. Patient stated that at about 1530 the day of presentation she fell while gardening and landed on her left hip. The patient had difficulty ambulating and had extreme pain. The patient denied hitting her head or loss of consciousness. The patient had no chest pain or shortness of breath. The patient has no prior history of hip fracture. The patient was noted to have a hip fracture and therefore was referred to the hospitalist for admission and management with orthopedic consultation. Hospital Course Hospital Course: The patient was admitted to continuous telemetry unit. Patient's home medications were resumed. Orthopedics was consult add given findings of hip fracture. With informed consent the patient underwent operative repair on 2016. The patient's postoperative course has been uncomplicated. The patient' s Ocasio was discontinued and the patient has been able to void since. The patient was seen and evaluated by physical therapy and was able to participate in therapies. Patient's pain has been controlled. The patient has been cleared for discharge from an orthopedic standpoint. The patient is eager for discharge to home with home health and physical therapy. Physical Exam Vital Signs: Temp Pulse Resp BP Pulse Ox 99.6 F 89 19 106/56 L 98 03/23/17 10:53 03/23/17 10:53 03/23/17 10:53 03/23/17 10:53 03/23/17 10:53 Intake & Output 03/21/17 03/22/17 03/23/17 23:59 23:59 23:59 Intake Total 8890 8126 340 Output Total 6243 750 926 340 Weight 72 kg 71.6 kg 69.7 kg General appearance: PRESENT: no acute distress, cooperative, well-developed, well-nourished Head exam: PRESENT: atraumatic, normocephalic Eye exam: PRESENT: conjunctiva pink, EOMI, PERRLA. ABSENT: scleral icterus Ear exam: PRESENT: normal external ear exam Mouth exam: PRESENT: moist, tongue midline Neck exam: ABSENT: carotid bruit, JVD, lymphadenopathy, thyromegaly Respiratory exam: PRESENT: clear to auscultation sravanthi, symmetrical, unlabored. ABSENT: rales, rhonchi, tachypnea, wheezes Cardiovascular exam: PRESENT: RRR. ABSENT: diastolic murmur, rubs, systolic murmur Pulses: PRESENT: normal dorsalis pedis pul Vascular exam: PRESENT: normal capillary refill GI/Abdominal exam: PRESENT: normal bowel sounds, soft. ABSENT: distended, guarding, mass, organolmegaly, rebound, tenderness Rectal exam: PRESENT: deferred Extremities exam: PRESENT: full ROM. ABSENT: calf tenderness, clubbing, pedal edema Neurological exam: PRESENT: alert, awake, oriented to person, oriented to place , oriented to time, oriented to situation, CN II-XII grossly intact. ABSENT: motor sensory deficit Psychiatric exam: PRESENT: appropriate affect, normal mood. ABSENT: homicidal ideation, suicidal ideation Skin exam: PRESENT: dry, intact, warm. ABSENT: cyanosis, rash Results Laboratory Results: Labs- Last Values WBC 9.2 10^3/uL (4.0-10.5) 03/21/17 10:02 RBC 3.74 10^6/uL (3.72-5.28) 03/21/17 10:02 Hgb 12.5 g/dL (12.0-15.5) 03/21/17 10:02 Hct 35.6 % (36.0-47.0) L 03/21/17 10:02 MCV 95 fl (80-97) 03/21/17 10:02 MCH 33.4 pg (27.0-33.4) 03/21/17 10:02 MCHC 35.1 g/dL (32.0-36.0) 03/21/17 10:02 RDW 13.5 % (11.5-14.0) 03/21/17 10:02 Plt Count 154 10^3/uL (150-450) 03/21/17 10:02 Seg Neutrophils % 87.3 % (42-78) H 03/21/17 10:02 Lymphocytes % 7.0 % (13-45) L 03/21/17 10:02 Monocytes % 4.5 % (3-13) 03/21/17 10:02 Eosinophils % 0.7 % (0-6) 03/21/17 10:02 Basophils % 0.5 % (0-2) 03/21/17 10:02 Absolute Neutrophils 8.0 10^3/uL (1.7-8.2) 03/21/17 10:02 Absolute Lymphocytes 0.6 10^3/uL (0.5-4.7) 03/21/17 10:02 Absolute Monocytes 0.4 10^3/uL (0.1-1.4) 03/21/17 10:02 Absolute Eosinophils 0.1 10^3/uL (0.0-0.6) 03/21/17 10:02 Absolute Basophils 0.0 10^3/uL (0.0-0.2) 03/21/17 10:02 PT 14.8 SEC (11.4-15.4) 03/19/17 18:55 INR 1.12 03/19/17 18:55 APTT 23.6 SEC (23.5-35.8) 03/19/17 18:55 Sodium 136.5 mmol/L (137-145) L 03/22/17 09:43 Potassium 3.7 mmol/L (3.6-5.0) 03/22/17 09:43 Chloride 102 mmol/L (98-107) 03/22/17 09:43 Carbon Dioxide 25 mmol/L (22-30) 03/22/17 09:43 Anion Gap 10 (5-19) 03/22/17 09:43 BUN 11 mg/dL (7-20) 03/22/17 09:43 Creatinine 0.86 mg/dL (0.52-1.25) 03/22/17 09:43 Est GFR ( Amer) > 60 (>60) 03/22/17 09:43 Est GFR (Non-Af Amer) > 60 (>60) 03/22/17 09:43 Glucose 130 mg/dL (75-110) H 03/22/17 09:43 Calcium 8.9 mg/dL (8.4-10.2) 03/22/17 09:43 Total Bilirubin 0.8 mg/dL (0.2-1.3) 03/19/17 18:00 Direct Bilirubin 0.3 mg/dL (0.0-0.4) 03/19/17 18:00 Indirect Bilirubin Not Reportable 03/19/17 18:00 Neonat Total Bilirubin Not Reportable 03/19/17 18:00 AST 24 U/L (14-36) 03/19/17 18:00 ALT 31 U/L (9-52) 03/19/17 18:00 Alkaline Phosphatase 101 U/L (38-126) 03/19/17 18:00 Total Protein 7.1 g/dL (6.3-8.2) 03/19/17 18:00 Albumin 3.7 g/dL (3.5-5.0) 03/19/17 18:00 Impressions: Pelvis CT 03/19/17 18:38 IMPRESSION: Incomplete fracture of the left femoral neck anterior cortex as detailed above. Ribera images were saved to this examination. Fluoroscopy 03/20/17 00:00 IMPRESSION: Please see combined report for performance of procedure and radiologic supervision and interpretation. Hip X-Ray 03/21/17 00:00 IMPRESSION: Postop left hip as noted above Qualifiers PATEINT BEING DISCHARGED WITH ANY OF THE FOLLOWING DIAGNOSIS?: No Plan Discharge Plan: The patient will need to follow-up with orthopedics within 7-10 days for hospital follow-up. The patient is a follow with primary care provider as needed. Time Spent: Less than 30 Minutes
== END 2017-03-23 11:57 | disposition home health service (06) | DRG 482 ==
LOC: ER 17:16 → EH 20:26 → 4N 22:20 → OBSVTOIN 03-20 13:00
PROVIDERS: ADMIT Internal Medicine; ATTEND Internal Medicine
PROC: 0QS734Z Reposition Left Upper Femur with Internal Fixation Device, Percutaneous Approach (ICD-10-PCS; principal; 2017-03-20 16:00)
DX: S72.092A Other fracture of head and neck of left femur, initial encounter for closed fracture (principal); W18.39XA Other fall on same level, initial encounter; Y93.H2 Activity, gardening and landscaping; I10 Essential (primary) hypertension; K21.9 Gastro-esophageal reflux disease without esophagitis; D64.9 Anemia, unspecified; K57.90 Diverticulosis of intestine, part unspecified, without perforation or abscess without bleeding; F17.200 Nicotine dependence, unspecified, uncomplicated; E78.5 Hyperlipidemia, unspecified; G89.29 Other chronic pain; M54.40 Lumbago with sciatica, unspecified side; Z79.82 Long term (current) use of aspirin; Z79.899 Other long term (current) drug therapy; Z79.891 Long term (current) use of opiate analgesic; Z90.49 Acquired absence of other specified parts of digestive tract; Z90.710 Acquired absence of both cervix and uterus; Z98.51 Tubal ligation status
CPT/HCPCS: 01220; 36415; 51702; 72192; 80048; 80053; 85025; 85610; 85730; 93005; 93010; 94799; 96374; 96375; 99285; G0378; G8978-GP; G8979-GP; J0690; J1170; J1644; J2250; J2270; J2405; J2704; J3010; J3490; J7120

== ENCOUNTER 2017-03-26 18:35 | Inpatient (IN) | payer MEDICARE, MEDICAID ==
[2017-03-26] MEDS ORDERED: NORMAL SALINE 1000 ML 2,000 ML IV ONE (19:16)
--- NOTE | 2017-03-26 19:21 | ER Document Report ---
ED General - General Stated Complaint: WEAKNESS Mode of Arrival: Medic Information source: Relative, Emergency Med Personnel Cannot obtain history due to: Altered mental status Notes: Family members who accompany patient give excellent history. Patient had a recent hip fracture, which was treated surgically 6 days ago. She did well postop and was discharged to home 3 days ago. Until today she has been doing very well, eating, stooling, and ambulating with her walker with minimal difficulty. Mental status was felt to be at baseline until today when family noted this morning that patient was very lethargic. There is no known history of fever, chills, sweats, vomiting, or diarrhea. There is no known history of a significant fall at home. Family members say they have been giving patient her usual medications exactly as directed. TRAVEL OUTSIDE OF THE [place] IN LAST 30 DAYS: No - HPI Onset: This morning Onset/Duration: Gradual Quality of pain: No pain Severity: Moderate Associated symptoms: Weakness. denies: Productive cough, Diarrhea, Leg swelling , Vomiting Exacerbated by: Denies Relieved by: Denies Similar symptoms previously: No Recently seen / treated by doctor: Yes - SEE ABOVE - Related Data Allergies/Adverse Reactions: No Known Allergies Allergy (Verified 03/19/17 17:25) Past Medical History - General Information source: Relative Cannot obtain history due to: Altered mental status - Social History Smoking Status: Unknown if Ever Smoked Cigarette use (# per day): No Chew tobacco use (# tins/day): No Smoking Education Provided: No Frequency of alcohol use: None Drug Abuse: None Lives with: Family Family History: Reviewed & Not Pertinent - Past Medical History Cardiac Medical History: Reports: Hx Hypercholesterolemia, Hx Hypertension Pulmonary Medical History: Reports: Hx Bronchitis Renal/ Medical History: Denies: Hx Peritoneal Dialysis GI Medical History: Reports: Hx Diverticulitis, Hx Gastroesophageal Reflux Disease Psychiatric Medical History: Reports: None Past Surgical History: Reports: Hx Cholecystectomy, Hx Hysterectomy, Hx Orthopedic Surgery, Hx Tubal Ligation - Immunizations Hx Diphtheria, Pertussis, Tetanus Vaccination: Yes Review of Systems - Review of Systems Constitutional: See HPI EENT: No symptoms reported Cardiovascular: No symptoms reported Respiratory: No symptoms reported Gastrointestinal: No symptoms reported Genitourinary: No symptoms reported Female Genitourinary: Post menopausal Musculoskeletal: See HPI Skin: No symptoms reported Neurological/Psychological: See HPI Physical Exam - Vital signs Vitals: Resp BP Pulse Ox 14 83/45 L 86 L 03/26/17 19:05 03/26/17 19:05 03/26/17 19:05 Interpretation: Hypotensive. No: Tachycardic - General General appearance: Lethargic - RESPONDS TO TACTILE STIMULI. In distress: None - HEENT Head: Normocephalic Eyes: Normal Conjunctiva: Normal Ears: Normal Nasal: Normal Mouth/Lips: Normal Mucous membranes: Normal Neck: Normal, Supple - Respiratory Respiratory status: No respiratory distress Breath sounds: Normal - Cardiovascular Rhythm: Regular Heart sounds: Normal auscultation Murmur: No - Abdominal Inspection: Normal Distension: No distension Bowel sounds: Hypoactive - Back Back: Normal - Extremities General upper extremity: Normal inspection General lower extremity: No: Normal inspection - L. HIP S/P RECENT REPAIR, WOUND LOOKS GOOD. - Neurological Neuro grossly intact: No - VERY LETHARGIC, DOESN'T VERBALIZE - Skin Skin Temperature: Warm Skin Moisture: Dry Skin Color: Normal Skin Turgor: Elastic Course - Vital Signs Vital signs: Temp Pulse Resp BP Pulse Ox 14 104/54 L 97 03/26/17 21:01 03/26/17 21:01 03/26/17 21:01 - Laboratory Result Diagrams: 03/26/17 20:50 03/26/17 20:50 Laboratory results interpreted by me: 03/26/17 03/26/17 03/26/17 20:17 20:50 20:50 RBC 3.10 L Hgb 10.3 L Hct 29.3 L D-Dimer 2.28 H Sodium Chloride Carbon Dioxide BUN Creatinine Est GFR ( Amer) Est GFR (Non-Af Amer) AST Creatine Kinase CK-MB (CK-2) Total Protein Albumin Urine Protein 30 H 03/26/17 03/26/17 20:50 20:50 RBC Hgb Hct D-Dimer Sodium 122.4 L Chloride 90 L Carbon Dioxide 21 L BUN 50 H Creatinine 3.15 H Est GFR ( Amer) 17 L Est GFR (Non-Af Amer) 14 L AST 57 H Creatine Kinase 1417 H CK-MB (CK-2) 17.60 H Total Protein 6.2 L Albumin 3.3 L Urine Protein - Consults DR. GEIGER Time consulted: 23:08 Consulted provider: will come to ER Discharge - Discharge Clinical Impression: Dehydration, Hyponatremia Acute renal failure Qualifiers: Acute renal failure type: unspecified Qualified Code(s): N17.9 - Acute kidney failure, unspecified Condition: Good Disposition: ADMITTED INPATIENT Admitting Provider: Hospitalist Unit Admitted: [facility]
[2017-03-26 20:48] LABS: APPEARANCE,URINE CLOUDY; BILIRUBIN,URINE NEGATIVE (NEGATIVE); GLUCOSE, URINE NEGATIVE (NEGATIVE); KETONES,URINE NEGATIVE (NEGATIVE); LEUKOCYTE ESTERASE,URINE NEGATIVE (NEGATIVE); NITRITE,URINE NEGATIVE (NEGATIVE); PROTEIN,URINE 30 mg/dL (NEGATIVE); URINE SPECIFIC GRAVITY 1.014; UROBILINOGEN,URINE NEGATIVE mg/dL (<2.0)
[2017-03-26 21:04] LABS: ABSOLUTE LYMPHOCYTES (AUTO) 0.9 10^3/uL (0.5-4.7); ABSOLUTE MONOCYTES (AUTO) 0.5 10^3/uL (0.1-1.4); ABSOLUTE NEUT (AUTO) 5.3 10^3/uL (1.7-8.2); BASOPHILS % (AUTO) 0.6 % (0-2); EOSINOPHILS % (AUTO) 0.4 % (0-6); HEMATOCRIT 29.3 % (36.0-47.0); HEMOGLOBIN 10.3 g/dL (12.0-15.5); HGB HCT DIFFERENCE 1.6; LYMPHOCYTES % (AUTO) 13.4 % (13-45); MEAN CORPUSCULAR HEMOGLOBIN 33.2 pg (27.0-33.4); MEAN CORPUSCULAR HGB CONC 35.1 g/dL (32.0-36.0); MEAN CORPUSCULAR VOLUME 95 fl (80-97); MONOCYTES % (AUTO) 7.6 % (3-13); RED CELL DISTRIBUTION WIDTH 13.1 % (11.5-14.0); WHITE BLOOD COUNT 6.8 10^3/uL (4.0-10.5)
[2017-03-26 21:16] LABS: ALANINE AMINOTRANSFERASE 39 U/L (9-52); ALBUMIN 3.3 g/dL (3.5-5.0); ALKALINE PHOSPHATASE 71 U/L (38-126); ANION GAP 11 (5-19); ASPARTATE AMINO TRANSFERASE 57 U/L (14-36); BILIRUBIN,DIRECT 0.3 mg/dL (0.0-0.4); BILIRUBIN,TOTAL 0.6 mg/dL (0.2-1.3); BLOOD UREA NITROGEN 50 mg/dL (7-20); CALCIUM 8.5 mg/dL (8.4-10.2); CARBON DIOXIDE 21 mmol/L (22-30); CHLORIDE 90 mmol/L (98-107); CREATINE KINASE 1417 U/L (30-135); CREATININE RESULT 3.15 mg/dL (0.52-1.25); GLUCOSE 89 mg/dL (75-110); SODIUM 122.4 mmol/L (137-145); TOTAL PROTEIN 6.2 g/dL (6.3-8.2)
[2017-03-26 21:29] LABS: TROPONIN I < 0.012 ng/mL
[2017-03-26] MEDS ORDERED: NORMAL SALINE 1000 ML 1,000 ML IV ONE (23:27)
[2017-03-27] MEDS ORDERED: NORMAL SALINE 1000 ML 1,000 ML IV ONE (00:30)
[2017-03-27] MEDS ORDERED: IPRATROPIUM/ALBUTEROL 0.5-2.5 MG/3 ML AMPUL NEB PRN (00:46)
[2017-03-27] MEDS ORDERED: ACETAMINOPHEN 325 MG TABLET PO PRN (00:48)
[2017-03-27] MEDS ORDERED: NORMAL SALINE 1000 ML 1,000 ML IV PRN ×2 (00:49→07:29)
[2017-03-27 01:50] LABS: ANION GAP 7 (5-19); BLOOD UREA NITROGEN 43 mg/dL (7-20); CALCIUM 8.5 mg/dL (8.4-10.2); CARBON DIOXIDE 22 mmol/L (22-30); CHLORIDE 95 mmol/L (98-107); CREATINE KINASE 1346 U/L (30-135); GLUCOSE 87 mg/dL (75-110); MAGNESIUM 2.4 mg/dL (1.6-2.3); POTASSIUM 4.9 mmol/L (3.6-5.0); SODIUM 123.5 mmol/L (137-145)
--- NOTE | 2017-03-27 01:58 | PDOC H&P ---
History of Present Illness Admission Date/PCP: 03/26/17 23:34 TYESHA GARDNER PA-C Rheum Dr. Chang Ortho Dr. Morris Patient complains of: weak History of Present Illness: CIERRA DAVIS is a 71 year old -[place]e female with underlying hypertension, COPD, hyperlipidemia, arthritis, easy bruising, diverticulosis with history of diverticulitis, restless leg syndrome, and occasional bladder infection, status post repair of a closed left hip fracture on the first of this month, discharged home on the third, who presents to the emergency room for evaluation of above complaint. Patient has been discussed with emergency room physician who evaluated the patient. Reportedly had done quite well until the last 24 hours, eating well, stooling, and ambulating with her walker with minimal difficulty. However, the morning of the sixth, patient was noted to be rather lethargic. one episode of vomiting the day before. However, no chest or abdominal pain. Little pain at the operative site. No fever or chills, diarrhea or dysuria. No postoperative fall at home. Taking medications as prescribed. Upon emergency room arrival, patient was noted be quite lethargic, somewhat difficult to arouse, but since receiving 2 L of crystalloid, she is much more mentally awake and outwardly confirms that she feels better. Mild hypotension in the emergency room, with low systolic pressure of 83. Pressures are responding nicely to IV fluids. She is currently resting quietly, with only mild discomfort at the operative site. She finished a two-month course of prednisone on the first of this month for her underlying arthritis, as ordered by her bag bailer. Denies any chronic underlying renal or biliary disease. Laboratory results are listed in [email or web address] and are reviewed. X-ray summary results are listed below, with full report(s) reviewed. . EKG reviewed. And compared to a prior tracing from the of last . Social history/personal habits: . 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 One daughter, who is present at her side along with , with patient's approval. Half-pack of cigarettes a day. No alcohol or illicit drug use. Allergies/adverse reactions NKDA. Home medications Home medications initially autopopulated into [employer] may not accurately reflect patient's true medications, dosages, and/or frequencies. instrumentation and controls technician to reconcile medications. Unfortunately, patient uncertain of medications/dosages/frequencies. REVIEW OF SYSTEMS: Constitutional: See history and present illness. Eyes: Wears glasses. ENT: No swallowing problems or complaints. No hearing problems or complaints. Pulmonary: No current complaints. Cardiovascular: No current complaints, including chest pain. Gastrointestinal: See history and present illness. Skin: No current complaints, including rashes. Hematologic: Easy bruising. Neurologic: Chronic decreased light touch sensation in her feet. Musculoskeletal: See history and present illness. Joint pain from arthritis. Psychiatric: No current complaints, including anxiety or depression. Endocrine: No current complaints, including polyuria. Genitourinary: No current complaints, including dysuria. PHYSICAL EXAMINATION: 5 feet 9 inches tall. 74.8 kg. BMI 24.4 kg/m.Temperature 98.7. Blood pressure 121/59. Pulse 80 and regular. Respirations are 14 and unlabored. 98 percent saturation on room air. Well-nourished well-developed -[place]e female appearing a bit younger than her stated age. Pleasant awake alert and cooperative. No obvious distress other than mildly anxious. Smiling. No agitation. Skin is warm and dry. No grossly obvious evidence of rash in areas of skin examined. No subcutaneous nodules palpated. ENT: Hearing grossly normal to normal conversation. Tongue midline on protrusion pink and slightly moist. Eyes: No scleral icterus. Pupils equal and reactive to light at 4 mm. [place] conjunctivae. Neck is supple and nontender to gentle active range of motion and palpation. Midline trachea. No palpable thyroid nodule mass enlargement or tenderness. Lymphatic: No palpable cervical or clavicular nodes. Neck and lymphatic exams limited by patient body habitus. Psychiatric: Reasonable insight into acute and chronic medical issues. Oriented to time location and why here. Lungs: Auscultation reveals clear and equal breath sounds bilaterally. No use of accessory respiratory muscles. Cardiovascular: Heart regular rate and rhythm, without gallop murmur or rub. No carotid or abdominal aortic bruits. No ankle or pedal edema. Faintly palpable dorsalis pedis pulses. Abdomen: soft, slightly distended nontender with positive bowel sounds. Unable to adequately evaluate abdomen for masses or organomegaly due to distention. Extremities: Feet are warm and dry. No calf tenderness to compression. No grossly obvious visual evidence of calf swelling. Gentle manipulation of right lower extremity fails to reveal any obvious evidence of injury or instability to knee hip or ankle. Not attempted on left due to her recent surgery. Neurologic: Moves upper extremities grossly normally. Patellar reflexes absent. Absent Babinski. Light touch is slightly decreased at feet, a chronic finding, without recent change, per patient. Dorsiflexion and plantarflexion of feet 5 / 5 and symmetric. Past Medical History Cardiac Medical History: Reports: Hyperlipidema, Hypertension Denies: Congestive Heart Failure, DVT, Myocardial Infarction, Pulmonary Embolism Pulmonary Medical History: Reports: Bronchitis, Chronic Obstructive Pulmonary Disease (COPD) Denies: Sleep Apnea EENT Medical History: Reports: Eyes - Glasses Denies: Ears, Throat Neurological Medical History: Denies: Hemorrhagic CVA, Ischemic CVA, Seizures Endocrine Medical History: Denies: Diabetes Mellitus Type 1, Diabetes Mellitus Type 2, Hyperthyroidism, Hypothyroidism Renal/ Medical History: Reports: Other - Occasional urinary tract infection. Denies: Chronic Kidney Disease GI Medical History: Reports: Diverticulitis, Gastroesophageal Reflux Disease Denies: Cirrhosis, Hepatitis, Peptic Ulcer Disease Musculoskeltal Medical History: Reports: Arthritis Skin Medical History: Reports: None Psychiatric Medical History: Reports: Tobacco Dependency Denies: Alcohol Dependency, Depression, General Anxiety Disorder, Substance Abuse Hematology: Reports: Anemia, Other - Easy bruising Infectious Medical History: Denies: Clostridium Difficile, Hepatitis B, Hepatitis C, Methicillin- Resistant Staph Aureus Past Surgical History Past Surgical History: Reports: Cholecystectomy, Hysterectomy, Orthopedic Surgery - Left hip surgery, 03/21/2017. Prior back surgery., Tubal Ligation Social History Information Source: Patient, Emergency Med Personnel, [facility] Records Lives with: Spouse/Significant other Smoking Status: Current Every Day Smoker Frequency of Alcohol Use: None Hx Recreational Drug Use: No Drugs: None Hx Prescription Drug Abuse: No - Advance Directive Resuscitation Status: Full Code Surrogate healthcare decision maker:: Family History Family History: Reviewed & Not Pertinent Parental Family History Reviewed: Yes - parents of heart disease. Children Family History Reviewed: Yes - Son with asthma Sibling(s) Family History Reviewed.: Yes - 2 brothers end-stage renal disease. Medication/Allergy Home Medications: Albuterol Sulfate [Proair HFA Inhalation Aerosol 8.5 gm MDI] 2 puff IH Q4HP PRN 03/27/17 Aspirin [Aspirin EC] 81 mg PO DAILY 03/27/17 Diclofenac Sodium [Voltaren] 2 gm TOP QID 03/27/17 Dicyclomine HCl [Bentyl 20 mg Tablet] 20 mg PO TID 03/27/17 Diltiazem HCl [Cardizem Cd 120 mg Capsule] 120 mg PO DAILY 03/27/17 Esomeprazole Magnesium [Nexium] 40 mg PO DAILY 03/27/17 Fluticasone Propionate [Flonase Nasal [place] 50 Mcg/[place] 16 gm] 1 spray NASL DAILY 03/27/17 Fluticasone Propionate [Flovent Hfa 110 Mcg Inhalation Aerosol 12 gm] 1 puff IH BID 03/27/17 Gabapentin [Neurontin 300 mg Capsule] 300 mg PO TIDP PRN 03/27/17 Lubiprostone [Amitiza 24 Mcg Capsule] 24 mcg PO BID 03/27/17 Montelukast Sodium [Singulair 10 mg Tablet] 10 mg PO QPM 03/27/17 Morphine Sulfate [Ms Contin] 30 mg PO Q12HP PRN 03/27/17 Nystatin [Nyata] 1 applic TOP BID 03/27/17 Olopatadine HCl [Pataday] 1 drop OD DAILY 03/27/17 [place]-3 Fatty Acids/Fish Oil [Fish Oil 1,000 mg Capsule] 1 cap PO TID 03/27/17 Ondansetron HCl [Zofran 8 mg Tablet] 8 mg PO BIDP PRN 03/27/17 Oxycodone HCl 30 mg PO Q4HP PRN 03/27/17 Potassium Chloride 10 meq PO DAILY 03/27/17 Pramipexole Di-HCl [Mirapex] 0.5 mg PO DAILY 03/27/17 Pravastatin Sodium [Pravachol] 80 mg PO DAILY 03/27/17 Sucralfate [Carafate 1 gm Tablet] 1 gm PO MEALSHS 03/27/17 Valsartan [Diovan 160 mg Tablet] 160 mg PO DAILY 03/27/17 Allergies/Adverse Reactions: No Known Allergies Allergy (Verified 03/19/17 17:25) Physical Exam Vital Signs: Temp Pulse Resp BP Pulse Ox 14 121/59 L 100 03/27/17 00:01 03/27/17 00:01 03/27/17 00:01 Results Impressions: Chest X-Ray 03/26/17 19:25 IMPRESSION: NO ACUTE RADIOGRAPHIC FINDING IN THE CHEST. Assessment & Plan - Diagnosis (1) Hyperlipidemia Qualifiers: Hyperlipidemia type: unspecified Qualified Code(s): E78.5 - Hyperlipidemia, unspecified Is this a current diagnosis for this admission?: YesPlan: Resume home medications as appropriate once these have been determined and reviewed. (2) Acute renal failure Qualifiers: Acute renal failure type: unspecified Qualified Code(s): N17.9 - Acute kidney failure, unspecified Is this a current diagnosis for this admission?: YesPlan: Suspect prerenal in nature due to decreased oral intake. Renal ultrasound. IV fluid. Repeat chemistry. (3) Elevated LFTs Is this a current diagnosis for this admission?: Yes (4) Elevated d-dimer Is this a current diagnosis for this admission?: YesPlan: Ventilation perfusion lung scan results pending. (5) Hyponatremia Is this a current diagnosis for this admission?: YesPlan: Possibly medication related. Serial chemistry. (6) Hypotension Qualifiers: Hypotension type: unspecified hypotension type Qualified Code(s): I95.9 - Hypotension, unspecified Is this a current diagnosis for this admission?: YesPlan: Likely due to an element of dehydration. Responding as expected to IV fluid. I have strongly encouraged patient not to get out of bed, to avoid a fall with injury. Knee high SCDs for DVT prophylaxis, along with subcutaneous heparin. Impression and plans were discussed with patient, and daughter, all of whom concur. Time spent in evaluation and management of patient: 68 critical care minutes. (7) Rhabdomyolysis Qualifiers: Rhabdomyolysis type: non-traumatic Qualified Code(s): M62.82 - Rhabdomyolysis Is this a current diagnosis for this admission?: YesPlan: Suspected due to combination of recent surgery along with her decreased mobility postoperatively. IV fluid. Serial CPK. (8) Steroid dependence Is this a current diagnosis for this admission?: YesPlan: If pressures remain low, will institute Solu-Cortef. (9) Essential hypertension Is this a current diagnosis for this admission?: YesPlan: We'll obviously hold antihypertensives at this point in time. - Inpatient Certification Based on my medical assessment, after consideration of the patient's comorbidities, presenting symptoms, or acuity I expect that the services needed warrant INPATIENT care.: Yes I certify that my determination is in accordance with my understanding of Medicare's requirements for reasonable and necessary INPATIENT services [42 CFR 412.3e].: Yes Medical Necessity: Need Close Monitoring Due to Risk of Patient Decompensation, Need For IV Fluids, Need For Continuous Telemetry Monitoring, Risk of Complication if Not Cared For in Hospital, Risk of Diagnosis Which Will Require Inpatient Eval/Care/Monitoring Post Hospital Care: D/C or Transfer Summary
[2017-03-27 02:06] LABS: TROPONIN I < 0.012 ng/mL
[2017-03-27 05:20] LABS: ABSOLUTE EOSINOPHILS # (AUTO) 0.1 10^3/uL (0.0-0.6); ABSOLUTE LYMPHOCYTES (AUTO) 1.3 10^3/uL (0.5-4.7); ABSOLUTE MONOCYTES (AUTO) 0.6 10^3/uL (0.1-1.4); ABSOLUTE NEUT (AUTO) 4.5 10^3/uL (1.7-8.2); BASOPHILS % (AUTO) 0.4 % (0-2); EOSINOPHILS % (AUTO) 0.9 % (0-6); HEMOGLOBIN 9.4 g/dL (12.0-15.5); HGB HCT DIFFERENCE 1.2; LYMPHOCYTES % (AUTO) 20.1 % (13-45); MEAN CORPUSCULAR HEMOGLOBIN 33.6 pg (27.0-33.4); MEAN CORPUSCULAR HGB CONC 34.7 g/dL (32.0-36.0); MEAN CORPUSCULAR VOLUME 97 fl (80-97); MONOCYTES % (AUTO) 9.6 % (3-13); RED BLOOD COUNT 2.79 10^6/uL (3.72-5.28); RED CELL DISTRIBUTION WIDTH 12.7 % (11.5-14.0); WHITE BLOOD COUNT 6.6 10^3/uL (4.0-10.5)
[2017-03-27 05:47] LABS: ALANINE AMINOTRANSFERASE 33 U/L (9-52); ALBUMIN 2.9 g/dL (3.5-5.0); ALKALINE PHOSPHATASE 65 U/L (38-126); ANION GAP 5 (5-19); ASPARTATE AMINO TRANSFERASE 63 U/L (14-36); BILIRUBIN,DIRECT 0.3 mg/dL (0.0-0.4); BILIRUBIN,TOTAL 0.7 mg/dL (0.2-1.3); BLOOD UREA NITROGEN 35 mg/dL (7-20); CALCIUM 8.5 mg/dL (8.4-10.2); CARBON DIOXIDE 24 mmol/L (22-30); CHLORIDE 100 mmol/L (98-107); CREATINE KINASE 1326 U/L (30-135); CREATININE RESULT 1.61 mg/dL (0.52-1.25); GLUCOSE 92 mg/dL (75-110); POTASSIUM 4.8 mmol/L (3.6-5.0); SODIUM 129.1 mmol/L (137-145); TOTAL PROTEIN 5.9 g/dL (6.3-8.2)
[2017-03-27] MEDS ORDERED: ALBUTEROL SULFATE HFA (90 MCG/PUFF) 200 PUFF/8.5 GM MDI IH PRN (07:22)
[2017-03-27] MEDS ORDERED: OXYCODONE HCL IR 5 MG TABLET PO PRN (08:41)
[2017-03-27 08:47] LABS: ANION GAP 5 (5-19); BLOOD UREA NITROGEN 32 mg/dL (7-20); CALCIUM 8.7 mg/dL (8.4-10.2); CARBON DIOXIDE 24 mmol/L (22-30); CHLORIDE 100 mmol/L (98-107); CREATINE KINASE 1332 U/L (30-135); CREATININE RESULT 1.36 mg/dL (0.52-1.25); GLUCOSE 95 mg/dL (75-110); POTASSIUM 4.4 mmol/L (3.6-5.0)
--- NOTE | 2017-03-27 09:15 | EKG REPORT ---
SEVERITY:- BORDERLINE ECG - SINUS RHYTHM NONSPECIFIC ST-T CHANGES- INFERIOR LEADS : Confirmed by: Enoch Mishra MD 27-Mar-2017 09:14:27
[2017-03-27 09:43] LABS: FREE T3 2.63 pg/mL (2.77-5.27)
[2017-03-27] MEDS: DOCUSATE SODIUM 100 MG CAPSULE PO SCH ×2 (09:49→17:55)
[2017-03-27] MEDS: HEPARIN SOD (PORCINE) 5,000 UNIT/ML 1 ML SYRINGE SUBCUT SCH ×2 (09:49→22:28)
[2017-03-27] MEDS: SUCRALFATE 1 GM TABLET PO SCH ×4 (09:49→22:27)
[2017-03-27] MEDS: LUBIPROSTONE 24 MCG CAPSULE PO SCH ×2 (09:49→17:55)
[2017-03-27] MEDS: DILTIAZEM HCL 120 MG CAP.SR.24H PO SCH (09:51)
[2017-03-27] MEDS: FLUTICASONE PROPIONATE HFA 110 MCG/PUFF 12 GM MDI IH SCH ×2 (10:00→17:57)
[2017-03-27] MEDS ORDERED: DOCUSATE SODIUM 100 MG CAPSULE PO SCH (10:00)
[2017-03-27] MEDS ORDERED: DILTIAZEM HCL 120 MG CAP.SR.24H PO SCH (10:00)
[2017-03-27] MEDS ORDERED: (PENDING PHARMACY ID) (Omega-3 Fatty Acids/Fish Oil [Fish Oil 1,000 Mg Capsule] 1 EACH) PO SCH (10:00)
[2017-03-27 12:00] LABS: ANION GAP 5 (5-19); BLOOD UREA NITROGEN 28 mg/dL (7-20); CALCIUM 8.8 mg/dL (8.4-10.2); CARBON DIOXIDE 24 mmol/L (22-30); CHLORIDE 101 mmol/L (98-107); CREATINE KINASE 1354 U/L (30-135); CREATININE RESULT 1.15 mg/dL (0.52-1.25); GLUCOSE 87 mg/dL (75-110); POTASSIUM 4.6 mmol/L (3.6-5.0); SODIUM 129.8 mmol/L (137-145)
--- NOTE | 2017-03-27 12:03 | PDOC PROGRESS REPORT ---
Subjective Progress Note for:: 03/27/17 Subjective:: Patient seen earlier today on morning rounds. Patient is awake and appropriately answering questions. Patient reports that she has no current pain. She reports that she was nauseated at home. Patient denies chest pain, shortness of breath, abdominal pain, nausea, vomiting , fevers, chills, diarrhea, constipation, headache, new onset weakness. Physical Exam Vital Signs: Temp Pulse Resp BP Pulse Ox 99.3 F 74 18 103/51 L 97 03/27/17 07:29 03/27/17 08:00 03/27/17 08:00 03/27/17 07:29 03/27/17 08:00 Intake & Output 03/26/17 03/27/17 03/28/17 06:59 06:59 06:59 Intake Total 240 66 Output Total 2725 Balance -2485 66 Weight 75.7 kg Exam: General: Awake, answers questions appropriately, no acute respiratory distress HEENT: AT/NC, PERRL, EOMI, oropharynx is moist, pink, no scleral icterus, no conjunctival injection Neck: No JVD, trachea midline Chest: Clear to auscultation bilaterally, no wheezes rhonchi or rales CV: Regular rate and rhythm, normal S1 and S2, no murmur, rub, or gallop Abdomen: Soft, nontender to palpation, nondistended, active bowel sounds; no rebound, rigidity, or guarding Extremities: No cyanosis, clubbing; trace bilateral lower extremity edema Neuro: Cranial nerves II through XII are grossly intact without focal deficits Psych: Normal mood and affect Results Laboratory Results: 03/27/17 05:10 03/27/17 03/27/17 03/27/17 01:19 01:19 05:10 WBC 6.6 RBC 2.79 L Hgb 9.4 L Hct 27.0 L MCV 97 MCH 33.6 H MCHC 34.7 RDW 12.7 Plt Count 172 Seg Neutrophils % 69.0 Lymphocytes % 20.1 Monocytes % 9.6 Eosinophils % 0.9 Basophils % 0.4 Absolute Neutrophils 4.5 Absolute Lymphocytes 1.3 Absolute Monocytes 0.6 Absolute Eosinophils 0.1 Absolute Basophils 0.0 Retic Count (auto) Absolute Retic Sodium 123.5 L Potassium 4.9 Chloride 95 L Carbon Dioxide 22 Anion Gap 7 BUN 43 H Creatinine 2.20 H Est GFR ( Amer) 26 L Est GFR (Non-Af Amer) 22 L Glucose 87 Calcium 8.5 Magnesium 2.4 H Total Bilirubin AST ALT Alkaline Phosphatase Total Protein Albumin TSH 0.29 L 03/27/17 03/27/17 05:10 07:54 WBC RBC Hgb Hct MCV MCH MCHC RDW Plt Count Seg Neutrophils % Lymphocytes % Monocytes % Eosinophils % Basophils % Absolute Neutrophils Absolute Lymphocytes Absolute Monocytes Absolute Eosinophils Absolute Basophils Retic Count (auto) 1.87 Absolute Retic 0.055 Sodium 129.1 L Potassium 4.8 Chloride 100 Carbon Dioxide 24 Anion Gap 5 BUN 35 H Creatinine 1.61 H Est GFR ( Amer) 38 L Est GFR (Non-Af Amer) 31 L Glucose 92 Calcium 8.5 Magnesium Total Bilirubin 0.7 AST 63 H ALT 33 Alkaline Phosphatase 65 Total Protein 5.9 L Albumin 2.9 L TSH 03/27/17 03/27/17 03/27/17 01:19 01:19 05:10 Creatine Kinase 1346 H 1326 H CK-MB (CK-2) 17.80 H Troponin I < 0.012 Impressions: Chest X-Ray 03/26/17 19:25 IMPRESSION: NO ACUTE RADIOGRAPHIC FINDING IN THE CHEST. Lung Scan-VQ NM 03/26/17 23:07 IMPRESSION: NORMAL VENTILATION-PERFUSION LUNG SCAN. NEGATIVE FOR PULMONARY EMBOLI. Renal Ultrasound 03/27/17 00:00 IMPRESSION: Simple cyst in the right kidney. No significant findings otherwise. No hydronephrosis. Assessment & Plan - Diagnosis (1) Rhabdomyolysis Qualifiers: Rhabdomyolysis type: non-traumatic Qualified Code(s): M62.82 - Rhabdomyolysis Is this a current diagnosis for this admission?: YesPlan: Continue IV fluids. Continue to monitor BMP. Likely secondary to her hip fracture. (2) Hyponatremia Is this a current diagnosis for this admission?: YesPlan: We'll repeat patient's BMP. Likely secondary to intravascular volume depletion. Will judiciously. Normal saline at 125 mL per hour. (3) Acute renal failure Qualifiers: Acute renal failure type: unspecified Qualified Code(s): N17.9 - Acute kidney failure, unspecified Is this a current diagnosis for this admission?: YesPlan: This is rapidly improving with fluids. Likely secondary to dehydration. (4) Chronic back pain Qualifiers: Back pain location: low back pain Sciatica presence: unspecified whether sciatica present Is this a current diagnosis for this admission?: YesPlan: Patient currently reports no back pain. Will place patient on Lidoderm patches. Will resume low-dose oxycodone, but have concerns over the amount of narcotics and polypharmacy in this patient. (5) Closed left hip fracture Qualifiers: Encounter type: subsequent encounter Fracture healing: with routine healing Qualified Code(s): S72.002D - Fracture of unspecified part of neck of left femur, subsequent encounter for closed fracture with routine healing Is this a current diagnosis for this admission?: YesPlan: Patient with recent hip surgery. Will consult physical therapy. (6) Dyslipidemia Is this a current diagnosis for this admission?: NoPlan: Hold statin therapy to rhabdomyolysis. (7) Opiate dependence, continuous Is this a current diagnosis for this admission?: YesPlan: Resume opiates as tolerated. - Time Time Spent with patient: 25-34 minutes Medications reviewed and adjusted accordingly: Yes Anticipated discharge: Home with Homehealth Within: within 48 hours - Inpatient Certification Based on my medical assessment, after consideration of the patient's comorbidities, presenting symptoms, or acuity I expect that the services needed warrant INPATIENT care.: Yes I certify that my determination is in accordance with my understanding of Medicare's requirements for reasonable and necessary INPATIENT services [42 CFR 412.3e].: Yes Medical Necessity: Need For IV Fluids Post Hospital Care: D/C [employer] Documentation
[2017-03-27] MEDS: OMEGA-3 ACID ETHYL ESTERS 1 GM CAPSULE PO SCH ×2 (13:53→17:55)
[2017-03-27] MEDS: GABAPENTIN 300 MG CAPSULE PO SCH ×2 (13:53→22:27)
[2017-03-27] MEDS ORDERED: LIDOCAINE 5% (700 MG) TRANSDERMAL ADH..PATCH TP ONE (14:00)
[2017-03-27 15:54] LABS: ANION GAP 5 (5-19); BLOOD UREA NITROGEN 24 mg/dL (7-20); CALCIUM 8.9 mg/dL (8.4-10.2); CARBON DIOXIDE 26 mmol/L (22-30); CHLORIDE 100 mmol/L (98-107); CREATININE RESULT 1.03 mg/dL (0.52-1.25); GLUCOSE 87 mg/dL (75-110); POTASSIUM 4.7 mmol/L (3.6-5.0)
[2017-03-27] MEDS: METOCLOPRAMIDE HCL 10 MG TABLET PO SCH ×2 (17:55→22:32)
[2017-03-27 20:11] LABS: ANION GAP 6 (5-19); BLOOD UREA NITROGEN 21 mg/dL (7-20); CALCIUM 9.1 mg/dL (8.4-10.2); CARBON DIOXIDE 23 mmol/L (22-30); CHLORIDE 103 mmol/L (98-107); CREATININE RESULT 0.87 mg/dL (0.52-1.25); GLUCOSE 92 mg/dL (75-110); POTASSIUM 4.5 mmol/L (3.6-5.0); SODIUM 132.4 mmol/L (137-145)
[2017-03-27] MEDS ORDERED: MONTELUKAST SODIUM 10 MG TABLET PO SCH (22:00)
[2017-03-27] MEDS ORDERED: SENNOSIDES/DOCUSATE 8.6-50 MG 1 EACH TABLET PO SCH ×2 (22:00)
[2017-03-27] MEDS: NORMAL SALINE 1000 ML 1,000 ML IV PRN (22:30)
[2017-03-28 00:18] LABS: ANION GAP 6 (5-19); BLOOD UREA NITROGEN 18 mg/dL (7-20); CALCIUM 8.9 mg/dL (8.4-10.2); CARBON DIOXIDE 23 mmol/L (22-30); CHLORIDE 104 mmol/L (98-107); CREATININE RESULT 0.84 mg/dL (0.52-1.25); GLUCOSE 94 mg/dL (75-110); POTASSIUM 4.2 mmol/L (3.6-5.0); SODIUM 133.3 mmol/L (137-145)
[2017-03-28] MEDS: GABAPENTIN 300 MG CAPSULE PO SCH (05:46)
[2017-03-28] MEDS: NORMAL SALINE 1000 ML 1,000 ML IV PRN (06:58)
[2017-03-28 07:36] LABS: ABSOLUTE NEUT (AUTO) 3.9 10^3/uL (1.7-8.2); BASOPHILS % (AUTO) 1.2 % (0-2); EOSINOPHILS % (AUTO) 0.5 % (0-6); HEMATOCRIT 29.1 % (36.0-47.0); HEMOGLOBIN 10.4 g/dL (12.0-15.5); HGB HCT DIFFERENCE 2.1; LYMPHOCYTES % (AUTO) 18.6 % (13-45); MEAN CORPUSCULAR HEMOGLOBIN 33.7 pg (27.0-33.4); MEAN CORPUSCULAR HGB CONC 35.7 g/dL (32.0-36.0); MEAN CORPUSCULAR VOLUME 95 fl (80-97); MONOCYTES % (AUTO) 8.7 % (3-13); RED BLOOD COUNT 3.08 10^6/uL (3.72-5.28); WHITE BLOOD COUNT 5.5 10^3/uL (4.0-10.5)
[2017-03-28 07:37] LABS: ABSOLUTE BASOPHILS # (AUTO) 0.1 10^3/uL (0.0-0.2); ABSOLUTE MONOCYTES (AUTO) 0.5 10^3/uL (0.1-1.4)
[2017-03-28 07:59] LABS: ANION GAP 6 (5-19); BLOOD UREA NITROGEN 16 mg/dL (7-20); CARBON DIOXIDE 23 mmol/L (22-30); CHLORIDE 105 mmol/L (98-107); CREATININE RESULT 0.78 mg/dL (0.52-1.25); GLUCOSE 85 mg/dL (75-110); POTASSIUM 4.3 mmol/L (3.6-5.0); SODIUM 133.9 mmol/L (137-145)
[2017-03-28] MEDS: OMEGA-3 ACID ETHYL ESTERS 1 GM CAPSULE PO SCH (09:44)
[2017-03-28] MEDS: DOCUSATE SODIUM 100 MG CAPSULE PO SCH (09:44)
[2017-03-28] MEDS: SUCRALFATE 1 GM TABLET PO SCH (09:44)
[2017-03-28] MEDS: HEPARIN SOD (PORCINE) 5,000 UNIT/ML 1 ML SYRINGE SUBCUT SCH (09:44)
[2017-03-28] MEDS: DILTIAZEM HCL 120 MG CAP.SR.24H PO SCH (09:45)
[2017-03-28] MEDS: LUBIPROSTONE 24 MCG CAPSULE PO SCH (09:45)
[2017-03-28] MEDS ORDERED: LANSOPRAZOLE 30 MG TAB.RAP.DR PO SCH (10:00)
[2017-03-28] MEDS ORDERED: ASPIRIN 81 MG TABLET, ENT COATED PO SCH (10:00)
[2017-03-28] MEDS ORDERED: LIDOCAINE 5% (700 MG) TRANSDERMAL ADH..PATCH TP SCH (10:00)
[2017-03-28] MEDS ORDERED: MORPHINE SULFATE SR 15 MG TABLET PO SCH (10:00)
[2017-03-28] MEDS ORDERED: MORPHINE SULFATE SR 30 MG TABLET PO SCH (10:00)
[2017-03-28] MEDS ORDERED: CEFTRIAXONE 1 GM/D5W RTU 50 ML IV SCH (10:00)
[2017-03-28] MEDS: METOCLOPRAMIDE HCL 10 MG TABLET PO SCH (10:01)
[2017-03-28] MEDS: FLUTICASONE PROPIONATE HFA 110 MCG/PUFF 12 GM MDI IH SCH (10:30)
[2017-03-28 10:51] VITALS: BP 108/49
[2017-03-28] MEDS ORDERED: NORMAL SALINE 1000 ML 1,000 ML IV ONE (11:31)
--- NOTE | 2017-03-28 13:52 | PDOC DISCHARGE SUMMARY ---
General - Admit/Disc Date/PCP Admission Date/Primary Care Provider: 03/26/17 23:50 TYESHA GARDNER PA-C Discharge Date: 03/28/17 - Discharge Diagnosis (1) Rhabdomyolysis Is this a current diagnosis for this admission?: Yes (2) Hyponatremia Is this a current diagnosis for this admission?: Yes (3) Acute renal failure Is this a current diagnosis for this admission?: Yes (4) Chronic back pain Is this a current diagnosis for this admission?: Yes (5) Closed left hip fracture Is this a current diagnosis for this admission?: Yes (6) Dyslipidemia Is this a current diagnosis for this admission?: No (7) Opiate dependence, continuous Is this a current diagnosis for this admission?: Yes (8) UTI (urinary tract infection) Is this a current diagnosis for this admission?: Yes - Additional Information Resuscitation Status: Full Code Discharge Diet: Cardiac Discharge Activity: Activity As Tolerated Home Medications: Albuterol Sulfate [Proair HFA Inhalation Aerosol 8.5 gm MDI] 2 puff IH Q4HP PRN 03/27/17 Aspirin [Aspirin EC] 81 mg PO DAILY 03/27/17 Diclofenac Sodium [Voltaren] 2 gm TOP QID 03/27/17 Diltiazem HCl [Cardizem Cd 120 mg Capsule] 120 mg PO DAILY 03/27/17 Esomeprazole Magnesium [Nexium] 40 mg PO DAILY 03/27/17 Fluticasone Propionate [Flovent Hfa 110 Mcg Inhalation Aerosol 12 gm] 1 puff IH BID 03/27/17 Lubiprostone [Amitiza 24 Mcg Capsule] 24 mcg PO BID 03/27/17 Montelukast Sodium [Singulair 10 mg Tablet] 10 mg PO QPM 03/27/17 Morphine Sulfate [Ms Contin] 30 mg PO Q12HP PRN 03/27/17 Nystatin [Nyata] 1 applic TOP BID 03/27/17 Olopatadine HCl [Pataday] 1 drop OD DAILY 03/27/17 [place]-3 Fatty Acids/Fish Oil [Fish Oil 1,000 mg Capsule] 1 cap PO TID 03/27/17 Ondansetron HCl [Zofran 8 mg Tablet] 8 mg PO BIDP PRN 03/27/17 Oxycodone HCl 30 mg PO Q4HP PRN 03/27/17 Pravastatin Sodium [Pravachol] 80 mg PO DAILY 03/27/17 Sucralfate [Carafate 1 gm Tablet] 1 gm PO MEALSHS 03/27/17 Valsartan [Diovan 160 mg Tablet] 160 mg PO DAILY 03/27/17 Amox Tr/Potassium Clavulanate [Augmentin 875-125 mg Tablet] 1 tab PO BID #10 tablet 03/28/17 Docusate Sodium [Colace 100 mg Capsule] 100 mg PO BID #60 capsule 03/28/17 Gabapentin [Neurontin 300 mg Capsule] 300 mg PO TID #0 03/28/17 Psyllium Husk [Metamucil] 660 gm PO DAILY #1 bot 03/28/17 Sennosides [Senna Laxative] 2 tab PO QHS #60 tablet 03/28/17 History of Present Illness History of Present Illness: CIERRA DAVIS is a 71 year old female with underlying hypertension, COPD, hyperlipidemia, arthritis, easy bruising, diverticulosis with history of diverticulitis, restless leg syndrome, and occasional bladder infection, status post repair of a closed left hip fracture on the first of this month, discharged home on the third, who presents to the emergency room for evaluation of above complaint. Patient has been discussed with emergency room physician who evaluated the patient. Reportedly had done quite well until the last 24 hours, eating well, stooling, and ambulating with her walker with minimal difficulty. However, the morning of the sixth, patient was noted to be rather lethargic. one episode of vomiting the day before. However, no chest or abdominal pain. Little pain at the operative site. No fever or chills, diarrhea or dysuria. No postoperative fall at home. Taking medications as prescribed. Upon emergency room arrival, patient was noted be quite lethargic, somewhat difficult to arouse, but since receiving 2 L of crystalloid, she is much more mentally awake and outwardly confirms that she feels better. Mild hypotension in the emergency room, with low systolic pressure of 83. Pressures are responding nicely to IV fluids. She is currently resting quietly, with only mild discomfort at the operative site. She finished a two-month course of prednisone on the first of this month for her underlying arthritis, as ordered by her motor winder. Denies any chronic underlying renal or biliary disease. Hospital Course Hospital Course: Patient was admitted and started on IV fluids. Her acute renal failure rapidly improved as did her hypotension by holding her narcotics.. Patient's altered mentation also resolved upon holding narcotics and any other psychoactive medications. Patient was found to be in mild rhabdomyolysis which was felt secondary to her prior surgery and fall. She was gently hydrated this was improved. Patient has was found to have a slight UTI and started on Rocephin. Patient was transitioned to Augmentin and discharged home in stable condition. Physical Exam Vital Signs: Temp Pulse Resp BP Pulse Ox 99.8 F 70 18 108/49 L 98 03/28/17 10:47 03/28/17 10:47 03/28/17 10:47 03/28/17 10:47 03/28/17 10:47 Intake & Output 03/27/17 03/28/17 03/29/17 06:59 06:59 06:59 Intake Total 240 4665 Output Total 2725 2100 Balance -2485 2565 Weight 75.7 kg 74.7 kg Exam: General: Awake alert and oriented x3, no acute respiratory distress HEENT: AT/NC, PERRL, EOMI, oropharynx is moist, pink, no scleral icterus, no conjunctival injection Neck: No JVD, trachea midline Chest: Clear to auscultation bilaterally, no wheezes rhonchi or rales CV: Regular rate and rhythm, normal S1 and S2, no murmur, rub, or gallop Abdomen: Soft, nontender to palpation, nondistended, active bowel sounds; no rebound, rigidity, or guarding Extremities: No cyanosis, clubbing; trace left lower extremity edema Neuro: Cranial nerves II through XII are grossly intact without focal deficits; awake alert and oriented x3 Psych: Normal mood and affect Results Laboratory Results: 03/28/17 07:30 03/28/17 07:30 03/27/17 03/27/17 03/27/17 11:30 15:24 19:35 WBC RBC Hgb Hct MCV MCH MCHC RDW Plt Count Seg Neutrophils % Lymphocytes % Monocytes % Eosinophils % Basophils % Absolute Neutrophils Absolute Lymphocytes Absolute Monocytes Absolute Eosinophils Absolute Basophils Sodium 129.8 L 131.0 L 132.4 L Potassium 4.6 4.7 4.5 Chloride 101 100 103 Carbon Dioxide 24 26 23 Anion Gap 5 5 6 BUN 28 H 24 H 21 H Creatinine 1.15 1.03 0.87 Est GFR ( Amer) 56 L > 60 > 60 Est GFR (Non-Af Amer) 46 L 53 L > 60 Glucose 87 87 92 Calcium 8.8 8.9 9.1 03/27/17 03/28/17 03/28/17 23:44 07:30 07:30 WBC 5.5 RBC 3.08 L Hgb 10.4 L Hct 29.1 L MCV 95 MCH 33.7 H MCHC 35.7 RDW 13.0 Plt Count 240 Seg Neutrophils % 71.0 Lymphocytes % 18.6 Monocytes % 8.7 Eosinophils % 0.5 Basophils % 1.2 Absolute Neutrophils 3.9 Absolute Lymphocytes 1.0 Absolute Monocytes 0.5 Absolute Eosinophils 0.0 Absolute Basophils 0.1 Sodium 133.3 L 133.9 L Potassium 4.2 4.3 Chloride 104 105 Carbon Dioxide 23 23 Anion Gap 6 6 BUN 18 16 Creatinine 0.84 0.78 Est GFR ( Amer) > 60 > 60 Est GFR (Non-Af Amer) > 60 > 60 Glucose 94 85 Calcium 8.9 9.0 03/27/17 05:35 Nasophary (Mrsa Only) MRSA Surveillance Culture - Final MRSA RECOVERED 03/27/17 03/27/17 03/27/17 01:19 01:19 05:10 Creatine Kinase 1346 H 1326 H CK-MB (CK-2) 17.80 H Troponin I < 0.012 03/27/17 03/27/17 07:54 11:30 Creatine Kinase 1332 H 1354 H CK-MB (CK-2) Troponin I Impressions: Lung Scan-VQ NM 03/26/17 23:07 IMPRESSION: NORMAL VENTILATION-PERFUSION LUNG SCAN. NEGATIVE FOR PULMONARY EMBOLI. Chest X-Ray 03/27/17 00:00 IMPRESSION: NO SIGNIFICANT RADIOGRAPHIC FINDING IN THE CHEST. Renal Ultrasound 03/27/17 00:00 IMPRESSION: Simple cyst in the right kidney. No significant findings otherwise. No hydronephrosis. Status: Imported from [facility] [employer] [facility] BEING DISCHARGED WITH ANY OF THE FOLLOWING DIAGNOSIS?: No Plan Time Spent: Less than 30 Minutes
== END 2017-03-28 12:56 | disposition home health service (06) | DRG 683 ==
LOC: ER 18:35 → EH 23:34 → UNDOADMIN 23:34 → EH 23:50 → 3N 03-27 06:24
PROVIDERS: ADMIT Family Medicine; ATTEND Family Medicine
DX: N17.9 Acute kidney failure, unspecified (principal); E87.1 Hypo-osmolality and hyponatremia; M62.82 Rhabdomyolysis; F11.20 Opioid dependence, uncomplicated; N39.0 Urinary tract infection, site not specified; E86.0 Dehydration; E78.5 Hyperlipidemia, unspecified; I10 Essential (primary) hypertension; K21.9 Gastro-esophageal reflux disease without esophagitis; I95.9 Hypotension, unspecified; M54.5 Low back pain; S72.002D Fracture of unspecified part of neck of left femur, subsequent encounter for closed fracture with routine healing; R41.82 Altered mental status, unspecified; B95.2 Enterococcus as the cause of diseases classified elsewhere; K57.90 Diverticulosis of intestine, part unspecified, without perforation or abscess without bleeding; F17.210 Nicotine dependence, cigarettes, uncomplicated; Z96.642 Presence of left artificial hip joint; Z79.82 Long term (current) use of aspirin; Z79.51 Long term (current) use of inhaled steroids; Z79.899 Other long term (current) drug therapy
CPT/HCPCS: 36415; 51702; 71010; 71020; 76770; 78582; 80048; 80053; 81001; 82550; 82553; 82607; 82728; 82746; 83540; 83550; 83605; 83735; 84134; 84439; 84443; 84466; 84481; 84484; 85025; 85045; 85379; 86850; 86900; 86901; 87040; 87086; 87088; 87186; 93005; 93010; 96360; 96361; 99285; A9540; A9567; G8978-GP; G8979-GP; J0696; J1644; J3490; J7030; Q9969

== ENCOUNTER → 2017-04-12 | Outpatient (CLI) | payer MEDICARE ==
--- NOTE | 2017-04-12 16:31 | RADIOLOGY REPORT (SQ) ---
EXAM DESCRIPTION: VENOUS BILATERAL LOWER COMPLETED DATE/TIME: 04/12/2017 4:20 pm REASON FOR STUDY: EDEMA R60.0 LOCALIZED EDEMA COMPARISON: None. TECHNIQUE: Dynamic and static bills scale and color images acquired of both lower extremity venous sy stems. Selected spectral images acquired with additional compression and augmentation maneuvers. Imag es stored on PACS. LIMITATIONS: None. FINDINGS: RIGHT LEG COMMON FEMORAL AND FEMORAL: Normal phasicity, compression and augmentation. No visualized echogenic m aterial on bills scale. No defects on color images. POPLITEAL: Normal compression and augmentation. No visualized echogenic material on bills scale. No de fects on color images. CALF VESSELS: Normal compression and augmentation. No visualized echogenic material on bills scale. No defects on color image. GSV AND SSV: Normal compression. No visualized echogenic material on bills scale. No defects on color images. ANY DEEP VENOUS INSUFFICIENCY: Not evaluated. ANY EVIDENCE OF POPLITEAL CYST: No. OTHER: No other significant finding. LEFT LEG COMMON FEMORAL AND FEMORAL: Normal phasicity, compression and augmentation. No visualized echogenic m aterial on bills scale. No defects on color images. POPLITEAL: Normal compression and augmentation. No visualized echogenic material on bills scale. No de fects on color images. CALF VESSELS: Normal compression and augmentation. No visualized echogenic material on bills scale. No defects on color images. GSV AND SSV: Normal compression. No visualized echogenic material on bills scale. No defects on color images. ANY DEEP VENOUS INSUFFICIENCY: Not evaluated. ANY EVIDENCE POPLITEAL CYST: No. OTHER: No other significant finding. IMPRESSION: NO EVIDENCE DVT OR SVT IN EITHER LEG. TECHNICAL DOCUMENTATION: JOB ID: [id number] [employer]- All Rights Reserved
== END ==
LOC: SP 15:36
PROVIDERS: ATTEND Physician Assistant
DX: R60.0 Localized edema (principal)
CPT/HCPCS: 93970

== ENCOUNTER → 2018-01-04 | Outpatient (CLI) | payer MEDICARE ==
--- NOTE | 2018-01-04 12:01 | WOMENS IMAGING REPORT ---
EXAM DESCRIPTION: 3D SCREENING MAMMO BILAT COMPLETED DATE/TIME: 01/04/2018 10:39 am REASON FOR STUDY: ROUTINE SCREENING; Z12.31 Z12.31 ENCNTR SCREEN MAMMOGRAM FOR MALIGNANT NEOPLASM O F TOMAS COMPARISON: [id number] TECHNIQUE: Standard craniocaudal and mediolateral oblique views of each breast recorded using digita l acquisition and breast tomosynthesis. LIMITATIONS: None. FINDINGS: No masses, calcifications or architectural distortion. No areas of suspicion. Read with the assistance of CAD. .[facility] - R2 Cenova Version 1.3 .[facility] - R2 Cenova Version 1.3 .[facility] - R2 Cenova Version 2.4 .[facility] [place] R2 Cenova Version 2.4 .[facility] - R2 Assembly Machine Offbearer Version 9.2 IMPRESSION: NORMAL MAMMOGRAM. BIRADS 1. BREAST DENSITY: b. There are scattered areas of fibroglandular density. BIRAD: 1 NEGATIVE RECOMMENDATION: ROUTINE SCREENING COMMENT: The patient has been notified of the results by letter per SA requirements. Additional no tification policies are in place for contacting patient with suspicious or incomplete findings. Quality ID #[id number]: The [employer] recommends an annual screening mammogram for women aged 40 years or over. This facility utilizes a reminder system to ensure that all patients receive reminder letters, and/or direct phone calls for appointments. This includes reminders for routine scr eening mammograms, diagnostic mammograms, or other Breast Imaging Interventions when appropriate. Th is patient will be placed in the appropriate reminder system. The [employer] (ACR) has developed recommendations for screening MRI of the breast s in certain patient populations, to be used in conjunction with mammography. Breast MRI surveillanc e may be appropriate for women with more than 20% lifetime risk of developing breast cancer as deter mined by genetic testing, significant family history of the disease, or history of mantle radiation f or Hodgkins Disease. ACR Practice Guidelines 2008. DBT Technology DBT is a type of tomographic mammography. With conventional mammography, overlapping breast tissue ma y make lesions difficult to detect, even with good compression. DBT uses an x-ray tube that rotates a round the breast, taking images at different angles. These images are then combined to create thin sl ices of the breast that the radiologist can view as a 3D reconstruction. The [employer] unit can perform full-field digital mammograms (2D imaging); or DBT (3D imaging); or both, in a combination mode that quickly performs both the mammogram and the tomosynthesis scan while the breast is still compressed. PQRS 6045F: Fluoroscopic imaging is not utilized for breast tomosynthesis. TECHNICAL DOCUMENTATION: FINDING NUMBER: (1) ASSESSMENT: (1) JOB ID: [id number] [employer]- All Rights Reserved
== END ==
LOC: WI 10:34
PROVIDERS: ATTEND Physician Assistant
DX: Z12.31 Encounter for screening mammogram for malignant neoplasm of breast (principal)
CPT/HCPCS: 77063; 77067

== ENCOUNTER 2018-11-16 07:43 | Day surgery (SDC) | payer MEDICARE, MEDICAID ==
[2018-11-08 09:31] LABS: APPEARANCE,URINE CLEAR; BILIRUBIN,URINE NEGATIVE (NEGATIVE); COLOR,URINE YELLOW; GLUCOSE, URINE NEGATIVE (NEGATIVE); KETONES,URINE NEGATIVE (NEGATIVE); LEUKOCYTE ESTERASE,URINE TRACE (NEGATIVE); NITRITE,URINE NEGATIVE (NEGATIVE); PROTEIN,URINE NEGATIVE (NEGATIVE); URINE SPECIFIC GRAVITY 1.005; UROBILINOGEN,URINE NEGATIVE mg/dL (<2.0)
--- NOTE | 2018-11-08 09:43 | RADIOLOGY REPORT (SQ) ---
EXAM DESCRIPTION: CHEST PA/LATERAL COMPLETED DATE/TIME: 11/08/2018 9:34 am REASON FOR STUDY: PRE-OP COMPARISON: 2017. TECHNIQUE: Frontal and lateral radiographic views of the chest acquired. NUMBER OF VIEWS: Two view. LIMITATIONS: None. FINDINGS: LUNGS AND PLEURA: No opacities, masses or pneumothorax. No pleural effusion. MEDIASTINUM AND HILAR STRUCTURES: No masses or contour abnormalities. HEART AND VASCULAR STRUCTURES: Mild left ventricular prominence is suggested. BONES: No acute findings. HARDWARE: None in the chest. OTHER: No other significant finding. IMPRESSION: No acute or suspicious cardiopulmonary changes. TECHNICAL DOCUMENTATION: JOB ID: [id number] [employer]- All Rights Reserved Reading location - IP/workstation name: [email or web address]
[2018-11-08 10:04] LABS: HEMATOCRIT 37.3 % (36.0-47.0); MEAN CORPUSCULAR HEMOGLOBIN 32.3 pg (27.0-33.4); MEAN CORPUSCULAR HGB CONC 34.7 g/dL (32.0-36.0); MEAN CORPUSCULAR VOLUME 93 fl (80-97); PLATELET COUNT 226 10^3/uL (150-450); RED BLOOD COUNT 4.02 10^6/uL (3.72-5.28); RED CELL DISTRIBUTION WIDTH 12.8 % (11.5-14.0); WHITE BLOOD COUNT 3.1 10^3/uL (4.0-10.5)
[2018-11-08 10:28] LABS: ANION GAP 5 (5-19); BLOOD UREA NITROGEN 13 mg/dL (7-20); CALCIUM 9.7 mg/dL (8.4-10.2); CARBON DIOXIDE 35 mmol/L (22-30); CHLORIDE 95 mmol/L (98-107); GLUCOSE 91 mg/dL (75-110); POTASSIUM 4.5 mmol/L (3.6-5.0)
--- NOTE | 2018-11-08 12:55 | EKG REPORT ---
SEVERITY:- NORMAL ECG - SINUS RHYTHM : Confirmed by: Enoch Mishra MD 08-Nov-2018 12:54:34
[~2018-11-16 07:43] MED LIST: CEFAZOLIN SODIUM 2 GM in DEXTROSE 5%-WATER 100 ML IV PRN; LACTATED RINGERS 1000 ML IV PRN; LIDOCAINE 0.5% INJ-PF (5 MG/ML) 50 ML SDV SUBCUT PRN
[2018-11-16] MEDS ORDERED: BUPIVACAINE HCL 0.5 % INJ/PF 30 ML SDV ONE (08:01)
[2018-11-16] MEDS ORDERED: MIDAZOLAM 2 MG/2 ML INJ ONE (10:15)
[2018-11-16] MEDS ORDERED: ONDANSETRON HCL INJ/PF 4 MG/2 ML SDV ONE ×2 (10:15→11:51)
[2018-11-16] MEDS ORDERED: FENTANYL CITRATE INJ/PF 100 MCG/2 ML AMPUL ONE (10:15)
[2018-11-16] MEDS ORDERED: ACETAMINOPHEN 1,000 MG/100 ML RTUPB IV ONE (10:16)
[2018-11-16] MEDS ORDERED: PROPOFOL INJ 200 MG/20 ML VIAL IV ONE (10:16)
[2018-11-16] MEDS ORDERED: PROMETHAZINE HCL INJ 25 MG/1 ML VIAL IV PRN ×2 (11:02)
[2018-11-16] MEDS ORDERED: OXYCODONE-ACETAMINOPHEN 5-325 MG TABLET PO PRN ×3 (11:02→12:35)
[2018-11-16] MEDS ORDERED: DIPHENHYDRAMINE HCL 50 MG/ML VIAL IV PRN (11:02)
[2018-11-16] MEDS ORDERED: MEPERIDINE HCL/PF INJ 25 MG/1 ML DISP.SYRIN IV PRN (11:02)
[2018-11-16] MEDS ORDERED: FENTANYL CITRATE INJ/PF 100 MCG/2 ML AMPUL IV PRN ×3 (11:02)
[2018-11-16] MEDS ORDERED: MORPHINE SULFATE 10 MG/ML INJ IV PRN (11:02)
--- NOTE | 2018-11-16 11:38 | Operative Report ---
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 A tourniquet was applied to the right lower extremity. Timeout was done identifying the right knee was the correct site. .25% plain Marcaine was injected into anticipated portal sites. The extremity was elevated and the tourniquet was inflated at 300 mmHg. 11 blade was used to establish the anterolateral portal. Scope was introduced. At this point I established my anteromedial portal. Capsule was distended with sterile saline solution and a diagnostic scope was done showing the patient had just grade 1 and 2 changes of the patellofemoral compartment. I turned my attention to the medial compartment where I noted a degenerative complex tear of the medial meniscus as well as diffuse grade 2 and 3 changes of the medial femoral condyle. I used the meniscal biter and 4.0mm shaver to resect majority of the midbody of the medial meniscus. Shaver smooth out the edges of the meniscus which gave a good stable construct. I this point redirected my camera to the notch and visualized the anterior cruciate ligament graft which was intact as well as the PCL which showed to be intact. I then placed the extremity in a [id number]-tber and at this point saw the lateral meniscus was degenerative fraying and tearing of the peripheral mid body and posterior horn. I used a 4.0 mm shaver and biter to resect degenerative tearing. Popliteal hiatus was intact. Patient did have some focal chondromalacia of the lateral tibial plateau which I also debrided with the shaver. Also did a chondroplasty of the medial femoral condyle. At this point the fluid of the knee was removed and I proceeded to close the 2 port al sites with 3-0 nylon. Tourniquet was let down. The portal sites were covered with Xeroform 4 x 4 dressing and ABD pad followed by a soft roll. I overwrapped it with an Damian bandage. Drapes were cut and removed. Patient was successfully extubated and sent to PACU in stable condition.
[2018-11-16] MEDS ORDERED: SUCCINYLCHOLINE CHLORIDE INJ 200 MG/10 ML VIAL ONE (11:41)
--- NOTE | 2018-11-16 12:00 | Discharge Summary ---
Discharge Summary (SDC) - Discharge Final Diagnosis: Right knee partial medial lateral meniscectomy and chondroplasty Date of Surgery: 11/16/18 Discharge Date: 11/16/18 Condition: Good Treatment or Instructions: Patient instructed to follow up in 10-14 days. Patient instructed to keep dressing dry clean and intact for 4 days and then allowed to remove. At that point patient can shower and apply Band-Aids as needed. Patient can weight-bear as tolerated and do range of motion exercises as tolerated. Crutches for support and safety. Can wean crutches once stable on his feet. Patient instructed to call the office if patient develops fevers chills redness and drainage from the surgical sites. Prescriptions: Oxycodone HCl/Acetaminophen [Percocet 5-325 mg Tablet] 1 - 2 tab PO ASDIR PRN #30 tablet PRN Reason: Referrals: TYESHA GARDNER PA-C [Primary Care Provider] - Discharge Diet: As Tolerated Respiratory Treatments at Home: Deep Breathing/Coughing Discharge Activity: Keep Legs Elevated, No Lifting/Push/Pulling, Slowly Increase Activity, Walk Frequently Home Care Assistance: None Needed Report the Following to Your Physician Immediately: Shortness of Breath, Vomiting, Increase in Pain, Fever over 101 Degrees, Unusual Bleeding, Redness, Swelling, Warmth, Increased Soreness, Drainage-Yellow, Drainage-Lees, Drainage- Green, Drainage-Foul Smelling
[2018-11-16 14:08] VITALS: BP 158/90
== END 2018-11-16 14:45 | disposition home or self-care (01) ==
LOC: OROUT 07:43
PROVIDERS: ATTEND Orthopaedic Surgery
DX: M94.261 Chondromalacia, right knee (principal); M23.303 Other meniscus derangements, unspecified medial meniscus, right knee; M23.351 Other meniscus derangements, posterior horn of lateral meniscus, right knee; I10 Essential (primary) hypertension; E78.5 Hyperlipidemia, unspecified; J44.9 Chronic obstructive pulmonary disease, unspecified; F17.210 Nicotine dependence, cigarettes, uncomplicated; Z86.73 Personal history of transient ischemic attack (TIA), and cerebral infarction without residual deficits; Z79.899 Other long term (current) drug therapy; Z79.51 Long term (current) use of inhaled steroids; E66.9 Obesity, unspecified; Z68.27 Body mass index [BMI] 27.0-27.9, adult
CPT/HCPCS: 93005; 36415; 85027; 80048; 81001; 71046; 93010; 29880; J2250; J3490; J0690; J3010; J0330; J2405; J2704; J0131; 1400

== ENCOUNTER → 2019-01-05 | Outpatient (CLI) | payer MEDICARE ==
--- NOTE | 2019-01-05 12:02 | WOMENS IMAGING REPORT ---
EXAM DESCRIPTION: 3D SCREENING MAMMO BILAT COMPLETED DATE/TIME: 01/05/2019 10:24 am REASON FOR STUDY: ROUTINE BILATERAL SCREENING;Z12.31 Z12.31 ENCNTR SCREEN MAMMOGRAM FOR MALIGNANT N EOPLASM OF TOMAS COMPARISON: [id number] TECHNIQUE: Standard craniocaudal and mediolateral oblique views of each breast recorded using digita l acquisition and breast tomosynthesis. LIMITATIONS: None. FINDINGS: No masses, calcifications or architectural distortion. No areas of suspicion. Read with the assistance of CAD. .[facility] - R2 Cenova Version 1.3 .[facility] Imaging - R2 Cenova Version 2.1 .[facility] - R2 Cenova Version 2.4 .[facility] [place] - R2 Cenova Version 2.4 .[facility] - R2 Railroad Watchman Version 9.2 IMPRESSION: NORMAL MAMMOGRAM. BIRADS 1. BREAST DENSITY: b. There are scattered areas of fibroglandular density. BIRAD: 1 NEGATIVE RECOMMENDATION: ROUTINE SCREENING COMMENT: The patient has been notified of the results by letter per SA requirements. Additional no tification policies are in place for contacting patient with suspicious or incomplete findings. Quality ID #225: The [employer] recommends an annual screening mammogram for women aged 40 years or over. This facility utilizes a reminder system to ensure that all patients receive reminder letters, and/or direct phone calls for appointments. This includes reminders for routine scr eening mammograms, diagnostic mammograms, or other Breast Imaging Interventions when appropriate. Th is patient will be placed in the appropriate reminder system. The [employer] (ACR) has developed recommendations for screening MRI of the breast s in certain patient populations, to be used in conjunction with mammography. Breast MRI surveillanc e may be appropriate for women with more than 20% lifetime risk of developing breast cancer as deter mined by genetic testing, significant family history of the disease, or history of mantle radiation f or Hodgkins Disease. ACR Practice Guidelines 2008. DBT Technology DBT is a type of tomographic mammography. With conventional mammography, overlapping breast tissue ma y make lesions difficult to detect, even with good compression. DBT uses an x-ray tube that rotates a round the breast, taking images at different angles. These images are then combined to create thin sl ices of the breast that the radiologist can view as a 3D reconstruction. The [employer] unit can perform full-field digital mammograms (2D imaging); or DBT (3D imaging); or both, in a combination mode that quickly performs both the mammogram and the tomosynthesis scan while the breast is still compressed. PQRS 6045F: Fluoroscopic imaging is not utilized for breast tomosynthesis. TECHNICAL DOCUMENTATION: FINDING NUMBER: (1) ASSESSMENT: (1) JOB ID: [id number] [employer] All Rights Reserved Reading location - IP/workstation name: [email or web address]
== END ==
LOC: WI 09:45
PROVIDERS: ATTEND Physician Assistant
DX: Z12.31 Encounter for screening mammogram for malignant neoplasm of breast (principal)
CPT/HCPCS: 77063; 77067

== ENCOUNTER 2019-04-18 09:17 | Day surgery (SDC) | payer MEDICARE, MEDICAID ==
[2019-03-15 10:29] LABS: APPEARANCE,URINE CLEAR; BILIRUBIN,URINE NEGATIVE (NEGATIVE); COLOR,URINE YELLOW; GLUCOSE, URINE NEGATIVE (NEGATIVE); KETONES,URINE NEGATIVE (NEGATIVE); LEUKOCYTE ESTERASE,URINE TRACE (NEGATIVE); NITRITE,URINE NEGATIVE (NEGATIVE); PROTEIN,URINE NEGATIVE (NEGATIVE); URINE SPECIFIC GRAVITY 1.005
[2019-03-15 10:38] LABS: ABSOLUTE EOSINOPHILS # (AUTO) 0.1 10^3/uL (0.0-0.6); ABSOLUTE MONOCYTES (AUTO) 0.5 10^3/uL (0.1-1.4); ABSOLUTE NEUT (AUTO) 1.6 10^3/uL (1.7-8.2); EOSINOPHILS % (AUTO) 3.9 % (0-6); HEMATOCRIT 34.3 % (36.0-47.0); HEMOGLOBIN 11.8 g/dL (12.0-15.5); LYMPHOCYTES % (AUTO) 30.3 % (13-45); MEAN CORPUSCULAR HEMOGLOBIN 31.8 pg (27.0-33.4); MEAN CORPUSCULAR HGB CONC 34.5 g/dL (32.0-36.0); MEAN CORPUSCULAR VOLUME 92 fl (80-97); MONOCYTES % (AUTO) 15.4 % (3-13); PLATELET COUNT 238 10^3/uL (150-450); RED BLOOD COUNT 3.72 10^6/uL (3.72-5.28); RED CELL DISTRIBUTION WIDTH 12.4 % (11.5-14.0); SEGMENTED NEUTROPHILS % (AUTO) 49.4 % (42-78); TOTAL CELLS COUNTED % (AUTO) 100 %; WHITE BLOOD COUNT 3.3 10^3/uL (4.0-10.5)
[2019-03-15 10:44] LABS: ANION GAP 7 (5-19); BLOOD UREA NITROGEN 9 mg/dL (7-20); CALCIUM 9.3 mg/dL (8.4-10.2); CARBON DIOXIDE 30 mmol/L (22-30); CHLORIDE 94 mmol/L (98-107); GLUCOSE 83 mg/dL (75-110); POTASSIUM 4.1 mmol/L (3.6-5.0); SODIUM 131.4 mmol/L (137-145)
--- NOTE | 2019-03-15 10:58 | RADIOLOGY REPORT (SQ) ---
EXAM DESCRIPTION: CHEST PA/LATERAL COMPLETED DATE/TIME: 03/15/2019 9:56 am REASON FOR STUDY: PRE-OP COMPARISON: Chest films 11/08/2018, 03/27/2017 EXAM PARAMETERS: NUMBER OF VIEWS: two views TECHNIQUE: Digital Frontal and Lateral radiographic views of the chest acquired. RADIATION DOSE: NA LIMITATIONS: none FINDINGS: LUNGS AND PLEURA: No opacities, masses or pneumothorax. No pleural effusion. MEDIASTINUM AND HILAR STRUCTURES: No masses or contour abnormalities. HEART AND VASCULAR STRUCTURES: Heart normal size. No evidence for failure. BONES: No acute findings. HARDWARE: None in the chest. OTHER: Clips right upper quadrant post cholecystectomy. Lumbar fusion hardware IMPRESSION: NO SIGNIFICANT RADIOGRAPHIC FINDING IN THE CHEST. TECHNICAL DOCUMENTATION: JOB ID: [id number] [employer]- All Rights Reserved Reading location - IP/workstation name: [email or web address]
--- NOTE | 2019-03-15 12:38 | EKG REPORT ---
SEVERITY:- BORDERLINE ECG - SINUS RHYTHM : Confirmed by: Enoch Mishra MD 15-Mar-2019 12:37:40
[~2019-04-18 09:17] MED LIST changes: +CEFAZOLIN 2 GM/D5W RTU 2 GM/50 ML RTUPB IV PRN; -CEFAZOLIN SODIUM 2 GM in DEXTROSE 5%-WATER 100 ML IV PRN
[2019-04-18] MEDS ORDERED: CEFAZOLIN 2 GM/D5W RTU 2 GM/50 ML RTUPB IV PRN (09:48)
[2019-04-18] MEDS ORDERED: CEFAZOLIN 2 GM/D5W RTU 2 GM/50 ML RTUPB IV ONE (09:55)
[2019-04-18] MEDS ORDERED: ONDANSETRON HCL INJ/PF 4 MG/2 ML SDV IV PRN (12:42)
[2019-04-18] MEDS ORDERED: FENTANYL CITRATE INJ/PF 100 MCG/2 ML AMPUL IV PRN ×3 (12:42)
[2019-04-18] MEDS ORDERED: DIPHENHYDRAMINE HCL 50 MG/ML VIAL IV PRN (12:42)
[2019-04-18] MEDS ORDERED: MEPERIDINE HCL/PF INJ 25 MG/1 ML DISP.SYRIN IV PRN (12:42)
[2019-04-18] MEDS ORDERED: PROMETHAZINE HCL INJ 25 MG/1 ML VIAL IV PRN ×2 (12:42)
[2019-04-18] MEDS ORDERED: KETAMINE HCL INJ 500 MG/10 ML VIAL ONE (13:06)
[2019-04-18] MEDS ORDERED: FENTANYL CITRATE INJ/PF 100 MCG/2 ML AMPUL ONE (13:07)
[2019-04-18] MEDS ORDERED: DEXAMETHASONE SOD PHOSPHATE INJ 4 MG/1 ML VIAL ONE (13:07)
[2019-04-18] MEDS ORDERED: PROPOFOL INJ 200 MG/20 ML VIAL IV ONE (13:07)
[2019-04-18] MEDS ORDERED: MIDAZOLAM 2 MG/2 ML INJ ONE (13:07)
[2019-04-18] MEDS ORDERED: ONDANSETRON HCL INJ/PF 4 MG/2 ML SDV ONE (13:07)
[2019-04-18] MEDS ORDERED: LIDOCAINE 1%/EPINEPHRINE INJ 20 ML VIAL ONE (13:08)
[2019-04-18] MEDS ORDERED: BUPIVACAINE HCL 0.5 % INJ/PF 30 ML SDV ONE (13:08)
[2019-04-18] MEDS ORDERED: ACETAMINOPHEN 1,000 MG/100 ML RTUPB IV ONE (13:08)
[2019-04-18] MEDS ORDERED: KETOROLAC TROMETHAMINE 60 MG/2 ML SDV ONE (13:34)
[2019-04-18] MEDS ORDERED: LIDOCAINE 2% INJ-PF (20 MG/ML) 2 ML AMPUL ONE (13:34)
[2019-04-18] MEDS ORDERED: ALBUTEROL SULFATE HFA (90 MCG/PUFF) 200 PUFF/8.5 GM MDI IH ONE (13:37)
--- NOTE | 2019-04-18 13:56 | Operative Report ---
Operative Report DATE OF SURGERY: 04/18/19 PREOPERATIVE DIAGNOSIS: Left medial meniscal tear POSTOPERATIVE DIAGNOSIS: Left medial meniscal tear. 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 Intact ACL. Grade 2-3 cannulation of the lateral compartment. Lateral meniscal tear. Grade I chondromalacia patellofemoral compartment. Hypertrophic synovitis OPERATION: Arthroscopic left partial medial lateral meniscectomy, partial synovectomy SURGEON: MERVAT KEY ANESTHESIA: LMAC ESTIMATED BLOOD LOSS: Sarmad PROCEDURE: With the patient supine on the operating table the left lower extremity is prepped and draped in sterile fashion. The knee is insufflated with accommodation Marcaine, Xylocaine, and epinephrine through medial lateral patella portals. Subsequent medial lateral patella portals are created for the introduction of arthroscope and debridements mentation. Joint is examined in systematic fashion findings as above. Using commendation basket Jaquez, mechanical shaver, electric frequency ablation probe a partial medial meniscectomy was performed from approximately 8:00 to 12:00 on the face of the dial. Similarly a partial lateral meniscectomy was performed from approximately 5:00 to 1:00 on the face of the dial. The joint is examined examined in systematic fashion with no new findings. Is a fair amount of vascular hypertrophic synovium anteriorly and this is debrided using mechanical shaver. At this point instrumentation was removed. The portals reapproximated interrupted nylon. A sterile compressive dressing was applied. The patient's return to the recovery room in satisfactory condition.
--- NOTE | 2019-04-18 13:59 | Discharge Summary ---
Discharge Summary (SDC) - Discharge Final Diagnosis: Left medial meniscal tear Date of Surgery: 04/18/19 Discharge Date: 04/18/19 Condition: Good Treatment or Instructions: Patient can weight-bear as tolerated. Compressive wrap can repeat be removed on Tuesday. Underlying OpSite can remain in place until you return to the office. You can shower once the compressive wrap is removed on Tuesday. Prescriptions: Oxycodone HCl/Acetaminophen [Percocet 5-325 mg Tablet] 1 tab PO Q6 PRN #40 tab PRN Reason: Referrals: TYESHA GARDNER PA-C [Primary Care Provider] - Discharge Diet: As Tolerated, Regular Respiratory Treatments at Home: Deep Breathing/Coughing Discharge Activity: Balance Activity w/Rest, No Driving, No tub bath Home Care Assistance: None Needed Report the Following to Your Physician Immediately: Shortness of Breath, Fever over 101 Degrees, Drainage-Foul Smelling
[2019-04-18 15:49] VITALS: BP 163/65
== END 2019-04-18 15:51 | disposition home or self-care (01) ==
LOC: OROUT 09:17
PROVIDERS: ATTEND Orthopaedic Surgery
DX: M23.300 Other meniscus derangements, unspecified lateral meniscus, right knee (principal); M23.304 Other meniscus derangements, unspecified medial meniscus, left knee; M22.42 Chondromalacia patellae, left knee; M65.862 Other synovitis and tenosynovitis, left lower leg; J45.909 Unspecified asthma, uncomplicated; I25.10 Atherosclerotic heart disease of native coronary artery without angina pectoris; I10 Essential (primary) hypertension; Z87.891 Personal history of nicotine dependence; Z79.51 Long term (current) use of inhaled steroids; E78.5 Hyperlipidemia, unspecified; Z01.810 Encounter for preprocedural cardiovascular examination; Z01.811 Encounter for preprocedural respiratory examination
CPT/HCPCS: 93005; 36415; 85025; 80048; 81001; 71046; 93010; 29880; 29875; J2250; J3490 ×5; J1100; J1885; J3010; J2405; J2704; J0690; J0131; 1400

== ENCOUNTER → 2019-09-17 | Outpatient (CLI) | payer MEDICARE, MEDICAID ==
[2019-09-17 10:28] LABS: ABSOLUTE EOSINOPHILS # (AUTO) 0.1 10^3/uL (0.0-0.6); ABSOLUTE NEUT (AUTO) 2.3 10^3/uL (1.7-8.2); HEMOGLOBIN 11.7 g/dL (12.0-15.5); WHITE BLOOD COUNT 3.8 10^3/uL (4.0-10.5)
--- NOTE | 2019-09-17 10:28 | EKG REPORT ---
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
[2019-09-17 10:39] LABS: ABSOLUTE MONOCYTES (AUTO) 0.4 10^3/uL (0.1-1.4); BASOPHILS % (AUTO) 0.9 % (0-2); EOSINOPHILS % (AUTO) 1.8 % (0-6); HEMATOCRIT 34.2 % (36.0-47.0); LYMPHOCYTES % (AUTO) 26.9 % (13-45); MEAN CORPUSCULAR HEMOGLOBIN 32.2 pg (27.0-33.4); MEAN CORPUSCULAR HGB CONC 34.2 g/dL (32.0-36.0); MEAN CORPUSCULAR VOLUME 94 fl (80-97); MONOCYTES % (AUTO) 9.8 % (3-13); PLATELET COUNT 231 10^3/uL (150-450); RED BLOOD COUNT 3.63 10^6/uL (3.72-5.28); RED CELL DISTRIBUTION WIDTH 12.3 % (11.5-14.0); SEGMENTED NEUTROPHILS % (AUTO) 60.6 % (42-78); TOTAL CELLS COUNTED % (AUTO) 100 %
[2019-09-17 10:40] LABS: AMORPHOUS SEDIMENT,URINE 2+ /HPF; APPEARANCE,URINE CLOUDY; BILIRUBIN,URINE NEGATIVE (NEGATIVE); COLOR,URINE YELLOW; GLUCOSE, URINE NEGATIVE (NEGATIVE); KETONES,URINE NEGATIVE (NEGATIVE); LEUKOCYTE ESTERASE,URINE NEGATIVE (NEGATIVE); NITRITE,URINE NEGATIVE (NEGATIVE); PROTEIN,URINE NEGATIVE (NEGATIVE); URINE SPECIFIC GRAVITY 1.016; UROBILINOGEN,URINE NEGATIVE mg/dL (<2.0)
[2019-09-17 10:48] LABS: BLOOD UREA NITROGEN 15 mg/dL (7-20); CALCIUM 9.4 mg/dL (8.4-10.2); GLUCOSE 57 mg/dL (75-110)
[2019-09-17 10:49] LABS: ANION GAP 9 (5-19); CARBON DIOXIDE 31 mmol/L (22-30); CHLORIDE 93 mmol/L (98-107); POTASSIUM 4.4 mmol/L (3.6-5.0)
--- NOTE | 2019-09-17 13:29 | RADIOLOGY REPORT (SQ) ---
EXAM DESCRIPTION: CHEST PA/LATERAL COMPLETED DATE/TIME: 09/17/2019 12:19 pm REASON FOR STUDY: PRE-OP COMPARISON: 03/15/2019 EXAM PARAMETERS: NUMBER OF VIEWS: two views TECHNIQUE: Digital Frontal and Lateral radiographic views of the chest acquired. RADIATION DOSE: NA LIMITATIONS: none FINDINGS: LUNGS AND PLEURA: No opacities, masses or pneumothorax. No pleural effusion. MEDIASTINUM AND HILAR STRUCTURES: No masses or contour abnormalities. HEART AND VASCULAR STRUCTURES: Heart normal size. No evidence for failure. BONES: No acute findings. HARDWARE: None in the chest. OTHER: No other significant finding. IMPRESSION: NO SIGNIFICANT RADIOGRAPHIC FINDING IN THE CHEST. TECHNICAL DOCUMENTATION: JOB ID: [id number] [employer]- All Rights Reserved Reading location - IP/workstation name: [email or web address]
== END ==
LOC: OD 09:45
PROVIDERS: ATTEND Orthopaedic Surgery
DX: Z01.810 Encounter for preprocedural cardiovascular examination (principal); Z01.811 Encounter for preprocedural respiratory examination; Z01.812 Encounter for preprocedural laboratory examination; M17.12 Unilateral primary osteoarthritis, left knee; I10 Essential (primary) hypertension
CPT/HCPCS: 36415; 71046; 80048; 81001; 85025; 93005; 93010

== ENCOUNTER 2019-10-08 06:30 | Inpatient (IN) | payer MEDICARE, MEDICAID ==
[~2019-10-08 06:30] MED LIST changes: +BUPIVACAINE INJ/PF LIPOSOME/PF 266 MG/20 ML SDV INJ PRN; -CEFAZOLIN 2 GM/D5W RTU 2 GM/50 ML RTUPB IV PRN; +CEFAZOLIN INJ 1 GM VIAL IV PRN; +IBUPROFEN 800 MG in NORMAL SALINE 250 ML IV PRN; -LIDOCAINE 0.5% INJ-PF (5 MG/ML) 50 ML SDV SUBCUT PRN; +OXYCODONE HCL SR 10 MG TABLET PO PRN; +PANTOPRAZOLE SODIUM 20 MG TABLET.DR PO PRN; +VANCOMYCIN HCL 1,000 MG in DEXTROSE 5%-WATER 250 ML IV PRN
[2019-10-08] MEDS ORDERED: OXYCODONE HCL SR 10 MG TABLET PO ONE (06:45)
[2019-10-08] MEDS ORDERED: PANTOPRAZOLE SODIUM 20 MG TABLET.DR PO ONE (06:46)
[2019-10-08] MEDS ORDERED: CEFAZOLIN INJ 1 GM VIAL ONE (06:47)
[2019-10-08] MEDS ORDERED: TRANEXAMIC ACID INJ/PF 1,000 MG/10 ML SDV ONE (07:13)
[2019-10-08] MEDS ORDERED: MIDAZOLAM 2 MG/2 ML INJ ONE (07:13)
[2019-10-08] MEDS ORDERED: FENTANYL CITRATE INJ/PF 100 MCG/2 ML AMPUL ONE (07:13)
[2019-10-08] MEDS ORDERED: EPHEDRINE SULFATE INJ 50 MG/1 ML AMPULE ONE (07:13)
[2019-10-08] MEDS ORDERED: PROPOFOL INJ 200 MG/20 ML VIAL IV ONE (07:14)
[2019-10-08] MEDS ORDERED: DIPHENHYDRAMINE HCL 50 MG/ML VIAL IV PRN ×2 (09:25→10:26)
[2019-10-08] MEDS ORDERED: OXYCODONE-ACETAMINOPHEN 5-325 MG TABLET PO PRN ×2 (09:25)
[2019-10-08] MEDS ORDERED: PROMETHAZINE HCL INJ 25 MG/1 ML VIAL IV PRN ×2 (09:25)
[2019-10-08] MEDS ORDERED: MEPERIDINE HCL/PF INJ 25 MG/1 ML DISP.SYRIN IV PRN (09:25)
[2019-10-08] MEDS ORDERED: FENTANYL CITRATE INJ/PF 100 MCG/2 ML AMPUL IV PRN ×3 (09:25)
[2019-10-08] MEDS ORDERED: ALBUTEROL SULFATE HFA (90 MCG/PUFF) 200 PUFF/8.5 GM MDI IH PRN (10:24)
--- NOTE | 2019-10-08 10:24 | Operative Report ---
Operative Report DATE OF SURGERY: 10/08/19 PREOPERATIVE DIAGNOSIS: Left knee arthritis OPERATION: Left knee arthroplasty SURGEON: MERVAT KEY ANESTHESIA: GA TISSUE REMOVED OR ALTERED: Bone to pathology ESTIMATED BLOOD LOSS: 75 PROCEDURE: Implants used: Femur: [place] triathlon size 5 CR femur Tibia: 5 tibia Tibial liner: 11 mm CS insert Patella: 38 mm oval patella Preoperatively there was not an adequate skin prep because jaqui wipes were not available. Procedure with the patient supine on the operating table the left the limb is prepped and draped in a sterile fashion. The limb was elevated for exsanguination and the tourniquet inflated to 280 torr. A standard midline median parapatellar approach the knee is taken. Access is gained to the femoral canal through the intercondylar notch. Intramedullary alignment instrumentation used to resect 10 mm of distal femur in 5 of valgus. Sizing guide indicated a size 5 femur. Appropriate cutting jig is then used to fashion anterior posterior and chamfer cuts. A trial reduction femurs performed and this is judged to be adequate. Attention was next turned to the tibia. Using an extra medullary alignment system 9 millimeters was resected off the lateral tibial plateau. This is sized to a size 5 tibia. A trial reduction was now performed with a 5 femur and a 5 tibia using a 9 millimeters spacer. It is full extension and central patellofemoral tracking. The articular surface the patella was next resected using an oscillating saw. All trial implants were removed. Polymethylmethacrylate is mixed and used to cement the above implants in place. On adequate curing the cement excess cement was removed the tourniquet was deflated hemostasis obtained. Postoperative analgesia is less than ideal because intraoperative injection tanning Marcaine with epinephrine is not available. Postoperatively hemostasis is less than ideal because intraoperative thrombin is not available. The wound is then closed in layers using interrupted Vicryl followed by jazz. A sterile compressive dressing was applied and the patient returned to recovery room in satisfactory condition.
[2019-10-08] MEDS ORDERED: ONDANSETRON 4 MG TAB.RAPDIS PO PRN (10:26)
[2019-10-08] MEDS ORDERED: MAG HYDROX/AL HYDROX/SIMETH SUSP 30 ML UDCUP PO PRN (10:26)
[2019-10-08] MEDS ORDERED: ONDANSETRON HCL INJ/PF 4 MG/2 ML SDV IV PRN (10:26)
[2019-10-08] MEDS ORDERED: RINGERS SOLUTION,LACTATED 1,000 ML IV PRN (10:26)
[2019-10-08] MEDS ORDERED: ACETAMINOPHEN 325 MG TABLET PO PRN (10:26)
[2019-10-08] MEDS: FENTANYL CITRATE INJ/PF 100 MCG/2 ML AMPUL ONE ×2 (10:52→10:57)
[2019-10-08] MEDS ORDERED: HYDROMORPHONE HCL INJ/PF 2 MG/ML AMPULE ONE (11:04)
[2019-10-08] MEDS ORDERED: TRANEXAMIC ACID INJ/PF 1,000 MG/10 ML SDV IV PRN (11:04)
--- NOTE | 2019-10-08 12:39 | RADIOLOGY REPORT (SQ) ---
EXAM DESCRIPTION: KNEE LEFT 2 VIEWS COMPLETED DATE/TIME: 10/08/2019 11:18 am REASON FOR STUDY: Post OP -Long Cassette in PACU M17.12 UNILATERAL PRIMARY OSTEOARTHRITIS, LEFT KNE E COMPARISON: None. NUMBER OF VIEWS: Two views. TECHNIQUE: AP and lateral radiographic images acquired of the left knee. LIMITATIONS: None. FINDINGS: Postoperative images show total knee arthroplasty in good position. IMPRESSION: Left total knee arthroplasty. Refer to operative note for further information. TECHNICAL DOCUMENTATION: JOB ID: [id number] [employer]- All Rights Reserved Reading location - IP/workstation name: [email or web address]
[2019-10-08] MEDS: GABAPENTIN 300 MG CAPSULE PO SCH ×2 (13:22→18:46)
[2019-10-08] MEDS: OXYCODONE HCL IR 5 MG TABLET PO PRN (13:22)
[2019-10-08] MEDS ORDERED: ONDANSETRON HCL INJ/PF 4 MG/2 ML SDV ONE (15:09)
[2019-10-08] MEDS ORDERED: SUCCINYLCHOLINE CHLORIDE INJ 200 MG/10 ML VIAL ONE (15:09)
[2019-10-08] MEDS ORDERED: KETOROLAC TROMETHAMINE 60 MG/2 ML SDV ONE (15:09)
[2019-10-08] MEDS ORDERED: ROCURONIUM BROMIDE INJ 50 MG/5 ML VIAL IV ONE (15:09)
[2019-10-08] MEDS ORDERED: DEXAMETHASONE SOD PHOSPHATE INJ 4 MG/1 ML VIAL ONE (15:09)
[2019-10-08] MEDS ORDERED: INFLUENZA QUAD (6MOS+) 2019-20 VAC 0.5 ML SYR IM ONE (15:37)
[2019-10-08] MEDS: IBUPROFEN 800 MG in NORMAL SALINE 250 ML IV SCH ×2 (15:53→21:03)
[2019-10-08] MEDS ORDERED: MONTELUKAST SODIUM 10 MG TABLET PO SCH (18:00)
[2019-10-08] MEDS ORDERED: DICYCLOMINE HCL 20 MG TABLET PO SCH (18:00)
[2019-10-08] MEDS ORDERED: SENNOSIDES/DOCUSATE 8.6-50 MG 1 EACH TABLET PO SCH (18:00)
[2019-10-08] MEDS ORDERED: ROPINIROLE HCL 1 MG TABLET PO SCH (22:00)
[2019-10-08] MEDS ORDERED: OXYCODONE HCL SR 10 MG TABLET PO SCH (22:00)
[2019-10-08] MEDS ORDERED: VANCOMYCIN HCL 1,000 MG in DEXTROSE 5%-WATER 250 ML IV ONE (22:30)
[2019-10-09] MEDS: OXYCODONE HCL IR 5 MG TABLET PO PRN (04:43)
[2019-10-09 05:19] LABS: HEMATOCRIT 29.4 % (36.0-47.0); HEMOGLOBIN 10.3 g/dL (12.0-15.5); MEAN CORPUSCULAR HEMOGLOBIN 33.3 pg (27.0-33.4); MEAN CORPUSCULAR VOLUME 95 fl (80-97); PLATELET COUNT 190 10^3/uL (150-450); RED BLOOD COUNT 3.09 10^6/uL (3.72-5.28); RED CELL DISTRIBUTION WIDTH 12.5 % (11.5-14.0); WHITE BLOOD COUNT 7.1 10^3/uL (4.0-10.5)
[2019-10-09 05:34] LABS: ANION GAP 6 (5-19); BLOOD UREA NITROGEN 15 mg/dL (7-20); CALCIUM 9.1 mg/dL (8.4-10.2); CARBON DIOXIDE 29 mmol/L (22-30); CHLORIDE 99 mmol/L (98-107); GLUCOSE 130 mg/dL (75-110); POTASSIUM 4.2 mmol/L (3.6-5.0)
[2019-10-09] MEDS: IBUPROFEN 800 MG in NORMAL SALINE 250 ML IV SCH (05:37)
[2019-10-09] MEDS ORDERED: PANTOPRAZOLE SODIUM 40 MG TABLET.DR PO SCH (06:00)
--- NOTE | 2019-10-09 07:22 | PDOC DISCHARGE SUMMARY ---
Impression - Admit/DC Date/PCP Admission Date/Primary Care Provider: 10/08/19 06:30 LINDA MONTES PA-C Discharge Date: 10/09/19 - Discharge Diagnosis (1) Arthritis of left knee Is this a current diagnosis for this admission?: Yes - Additional Information Resuscitation Status: Full Code Discharge Diet: Regular Discharge Activity: Balance Activity w/Rest, No tub bath Referrals: MERVAT KEY MD [ACTIVE STAFF] - Home Medications: Albuterol Sulfate [Proair HFA Inhalation Aerosol 8.5 gm MDI] 2 puff IH Q4HP PRN 10/08/19 Aspirin [Adult Low Dose Aspirin EC] 81 mg PO DAILY 10/08/19 Dicyclomine HCl [Bentyl 20 mg Tablet] 20 mg PO BID 10/08/19 Ferrous Sulfate [Feosol 325 mg Tablet] 325 mg PO DAILY 10/08/19 Gabapentin [Neurontin 300 mg Capsule] 300 mg PO Q8 10/08/19 Lidocaine HCl [Xylocaine 2% Viscous Soln 20 ml Udcup] 15 ml PO DAILYP PRN MDD MIX WITH MYLANTA 10/08/19 Mag Hydrox/Aluminum Hyd/Simeth [Mylanta Maximum Strength Liq] 15 ml PO DAILYP PRN MDD MIX WITH LIDOCAINE 10/08/19 Montelukast Sodium [Singulair 10 mg Tablet] 10 mg PO QHS 10/08/19 Naproxen [Naprosyn] 500 mg PO BID 10/08/19 Ondansetron HCl [Zofran 8 mg Tablet] 8 mg PO BIDP PRN 10/08/19 Oxycodone HCl 15 mg PO Q8HP PRN 10/08/19 Ropinirole HCl [Requip] 1 mg PO QHS 10/08/19 Sertraline HCl [Zoloft] 100 mg PO DAILY 10/08/19 History of Present Illiness History of Present Illness: CIERRA DAVIS is a 73 year old female 73-year-old white female with progressive left knee pain and functional disability secondary to a medial tibial plateau fracture malunion and subsequently posttraumatic arthritis. Patient is admitted for elective left knee arthroplasty. Hospital Course Hospital Course: Patient is admitted through the operating where she undergoes uncomplicated left knee arthroplasty. She is returned to floor in satisfactory condition. She makes excellent progress with physical therapy and the day of surgery. Compressive dressing was removed on the first postoperative morning. Underlying OpSite dressing is clean dry and intact. Minimal pedal edema. Distal neurovascular examination is intact. Physical Exam Vital Signs: Temp Pulse Resp BP Pulse Ox 36.5 C 63 14 134/66 H 98 10/08/19 23:00 10/08/19 23:00 10/08/19 23:00 10/08/19 23:00 10/08/19 23:00 Intake & Output 10/08/19 10/09/19 10/10/19 06:59 06:59 06:59 Intake Total 5939 Output Total 3519 Balance 2420 Weight 75.8 kg General appearance: PRESENT: no acute distress Head exam: PRESENT: normocephalic Respiratory exam: PRESENT: unlabored Cardiovascular exam: PRESENT: RRR Pulses: PRESENT: +1 pedal pulses bilateral Vascular exam: PRESENT: normal capillary refill GI/Abdominal exam: PRESENT: soft Rectal exam: PRESENT: deferred Musculoskeletal exam: PRESENT: other - Compressive dressing was removed from the left lower extremity on the first postoperative morning. Underlying OpSite dressing is clean dry and intact. Neurological exam: PRESENT: alert, awake, oriented to person, oriented to place, oriented to time, oriented to situation. ABSENT: motor sensory deficit Psychiatric exam: PRESENT: appropriate affect, normal mood. ABSENT: homicidal ideation, suicidal ideation Skin exam: PRESENT: dry, intact, warm. ABSENT: cyanosis, rash Results Laboratory Results: WBC 7.1 10^3/uL (4.0-10.5) 10/09/19 04:47 RBC 3.09 10^6/uL (3.72-5.28) L 10/09/19 04:47 Hgb 10.3 g/dL (12.0-15.5) L 10/09/19 04:47 Hct 29.4 % (36.0-47.0) L 10/09/19 04:47 MCV 95 fl (80-97) 10/09/19 04:47 MCH 33.3 pg (27.0-33.4) 10/09/19 04:47 MCHC 35.0 g/dL (32.0-36.0) 10/09/19 04:47 RDW 12.5 % (11.5-14.0) 10/09/19 04:47 Plt Count 190 10^3/uL (150-450) 10/09/19 04:47 Sodium 133.5 mmol/L (137-145) L 10/09/19 04:47 Potassium 4.2 mmol/L (3.6-5.0) 10/09/19 04:47 Chloride 99 mmol/L (98-107) 10/09/19 04:47 Carbon Dioxide 29 mmol/L (22-30) 10/09/19 04:47 Anion Gap 6 (5-19) 10/09/19 04:47 BUN 15 mg/dL (7-20) 10/09/19 04:47 Creatinine 0.83 mg/dL (0.52-1.25) 10/09/19 04:47 Est GFR ( Amer) > 60 (>60) 10/09/19 04:47 Est GFR (MDRD) Non-Af > 60 (>60) 10/09/19 04:47 Glucose 130 mg/dL (75-110) H 10/09/19 04:47 Calcium 9.1 mg/dL (8.4-10.2) 10/09/19 04:47 Impressions: Knee X-Ray 10/08/19 10:27 IMPRESSION: Left total knee arthroplasty. Refer to operative note for further information. Plan Plan of Treatment: Patient be discharged home with home health services and DME on a weightbearing as tolerated basis. Follow-up with Dr. Key and [facility] for surgery in 2 weeks for staple removal. Stroke Is this a Stroke Patient?: No Stroke Pt being discharged on Anti-thrombolytic therapy?: Yes Acute Heart Failure - Is this a Heart Failure Patient?: No
[2019-10-09 09:25] VITALS: BP 134/66
[2019-10-09] MEDS ORDERED: ASPIRIN 81 MG TABLET, ENT COATED PO SCH (10:00)
[2019-10-09] MEDS ORDERED: PRENATAL VITAMIN W DHA CAPSULE PO SCH (10:00)
[2019-10-09] MEDS ORDERED: FERROUS SULFATE 325 MG TABLET PO SCH (10:00)
[2019-10-09] MEDS ORDERED: (PENDING PHARMACY ID) (Potassium Chloride [Potassium Chloride] 10 MEQ) PO SCH (10:00)
[2019-10-09] MEDS ORDERED: SERTRALINE HCL 50 MG TABLET PO SCH (10:00)
[2019-10-09] MEDS ORDERED: (PENDING PHARMACY ID) (Valsartan/Hydrochlorothiazide [Valsartan-Hctz 160-25 Mg Tab] 1 EACH PO SCH (10:00)
[2019-10-09] MEDS ORDERED: (PENDING PHARMACY ID) (Ropinirole Hcl [Requip] 1 MG) PO SCH (10:00)
== END 2019-10-09 09:56 | disposition home health service (06) | DRG 470 ==
LOC: INOR 06:30 → 4S 12:00
PROVIDERS: ADMIT Orthopaedic Surgery; ATTEND Orthopaedic Surgery
PROC: 0SRD0J9 Replacement of Left Knee Joint with Synthetic Substitute, Cemented, Open Approach (ICD-10-PCS; principal; 2019-10-08 08:45)
DX: M17.12 Unilateral primary osteoarthritis, left knee (principal); Z79.899 Other long term (current) drug therapy
CPT/HCPCS: 01402; 36415; 80048; 84132; 85027; 88305; 88311; 94799; C1713; C1776; J0330; J0690; J1100; J1170; J1741; J1885; J2250; J2405; J2704; J3010; J3370; J3490; J7050; J7060

== ENCOUNTER → 2020-01-07 | Outpatient (CLI) | payer MEDICARE, MEDICAID ==
--- NOTE | 2020-01-07 16:27 | WOMENS IMAGING REPORT ---
EXAM DESCRIPTION: BILAT SCREENING MAMMO W/CAD COMPLETED DATE/TIME: 01/07/2020 11:34 am REASON FOR STUDY: Z12.31 ENCOUNTER FOR SCREENING MAMMOGRAM FOR MALIGNANT NEOPLASM OF BREAST Z12.31 ENCNTR SCREEN MAMMOGRAM FOR MALIGNANT NEOPLASM OF TOMAS COMPARISON: 2017 EXAM PARAMETERS: Standard craniocaudal and mediolateral oblique views of each breast recorded using digital acquisition. Read with the assistance of CAD. .[facility] - [employer] Desk Officer Version 9.2 LIMITATIONS: None. FINDINGS: No suspicious masses, suspicious calcifications or architectural distortion. No areas of c oncern. IMPRESSION: Negative MAMMOGRAM. BIRADS 1 BREAST DENSITY: b. There are scattered areas of fibroglandular density. BIRAD: ASSESSMENT: 1 NEGATIVE RECOMMENDATION: ROUTINE SCREENING Please continue yearly bilateral screening mammography/tomosynthesis in December 2020 COMMENT: The patient has been notified of the results by letter per [place] requirements. Additional no tification policies are in place for contacting patient with suspicious or incomplete findings. Quality ID #[id number]: The [employer] recommends an annual screening mammogram for women aged 40 years or over. This facility utilizes a reminder system to ensure that all patients receive reminder letters, and/or direct phone calls for appointments. This includes reminders for routine scr eening mammograms, diagnostic mammograms, or other Breast Imaging Interventions when appropriate. Th is patient will be placed in the appropriate reminder system. TECHNICAL DOCUMENTATION: FINDING NUMBER: (1) ASSESSMENT: (1) JOB ID: [id number] 2010 [employer]- All Rights Reserved Reading location - IP/workstation name: [email or web address]
== END ==
LOC: WI 10:44
PROVIDERS: ATTEND Physician Assistant Medical
DX: Z12.31 Encounter for screening mammogram for malignant neoplasm of breast (principal)
CPT/HCPCS: 77067

== ENCOUNTER → 2020-01-14 | Outpatient (CLI) | payer MEDICARE, MEDICAID ==
[2020-01-14 09:42] LABS: AMORPHOUS SEDIMENT,URINE TRACE /HPF; APPEARANCE,URINE CLOUDY; BILIRUBIN,URINE NEGATIVE (NEGATIVE); COLOR,URINE YELLOW; GLUCOSE, URINE NEGATIVE (NEGATIVE); KETONES,URINE NEGATIVE (NEGATIVE); LEUKOCYTE ESTERASE,URINE TRACE (NEGATIVE); NITRITE,URINE NEGATIVE (NEGATIVE); PROTEIN,URINE NEGATIVE (NEGATIVE); URINE SPECIFIC GRAVITY 1.012; UROBILINOGEN,URINE NEGATIVE mg/dL (<2.0)
[2020-01-14 10:12] LABS: ABSOLUTE EOSINOPHILS # (AUTO) 0.2 10^3/uL (0.0-0.6); ABSOLUTE MONOCYTES (AUTO) 0.3 10^3/uL (0.1-1.4); ABSOLUTE NEUT (AUTO) 2.3 10^3/uL (1.7-8.2); BASOPHILS % (AUTO) 0.8 % (0-2); HEMATOCRIT 34.5 % (36.0-47.0); HEMOGLOBIN 12.1 g/dL (12.0-15.5); LYMPHOCYTES % (AUTO) 26.6 % (13-45); MEAN CORPUSCULAR HEMOGLOBIN 33.2 pg (27.0-33.4); MEAN CORPUSCULAR HGB CONC 35.1 g/dL (32.0-36.0); MEAN CORPUSCULAR VOLUME 95 fl (80-97); MONOCYTES % (AUTO) 7.7 % (3-13); PLATELET COUNT 237 10^3/uL (150-450); RED BLOOD COUNT 3.65 10^6/uL (3.72-5.28); RED CELL DISTRIBUTION WIDTH 13.1 % (11.5-14.0); SEGMENTED NEUTROPHILS % (AUTO) 58.9 % (42-78); TOTAL CELLS COUNTED % (AUTO) 100 %; WHITE BLOOD COUNT 3.8 10^3/uL (4.0-10.5)
[2020-01-14 10:14] LABS: ANION GAP 5 (5-19); BLOOD UREA NITROGEN 15 mg/dL (7-20); CALCIUM 9.5 mg/dL (8.4-10.2); CARBON DIOXIDE 34 mmol/L (22-30); CHLORIDE 95 mmol/L (98-107); GLUCOSE 84 mg/dL (75-110)
--- NOTE | 2020-01-14 13:27 | RADIOLOGY REPORT (SQ) ---
EXAM DESCRIPTION: CHEST PA/LATERAL COMPLETED DATE/TIME: 01/14/2020 9:13 am REASON FOR STUDY: PRE-OP COMPARISON: 09/17/2019 EXAM PARAMETERS: NUMBER OF VIEWS: two views TECHNIQUE: Digital Frontal and Lateral radiographic views of the chest acquired. RADIATION DOSE: NA LIMITATIONS: none FINDINGS: LUNGS AND PLEURA: No opacities, masses or pneumothorax. No pleural effusion. MEDIASTINUM AND HILAR STRUCTURES: No masses or contour abnormalities. HEART AND VASCULAR STRUCTURES: Heart normal size. No evidence for failure. BONES: No acute findings. HARDWARE: None in the chest. OTHER: No other significant finding. IMPRESSION: NO SIGNIFICANT RADIOGRAPHIC FINDING IN THE CHEST. TECHNICAL DOCUMENTATION: JOB ID: [id number] 2010 [employer]- All Rights Reserved Reading location - IP/workstation name: [email or web address]
--- NOTE | 2020-01-14 18:14 | EKG REPORT ---
SEVERITY:- NORMAL ECG - SINUS RHYTHM : Confirmed by: Nicole Park MD 14-Jan-2020 18:13:40
== END ==
LOC: OD 08:32
PROVIDERS: ATTEND Orthopaedic Surgery
DX: Z01.812 Encounter for preprocedural laboratory examination (principal); Z01.810 Encounter for preprocedural cardiovascular examination; Z01.811 Encounter for preprocedural respiratory examination; M17.11 Unilateral primary osteoarthritis, right knee
CPT/HCPCS: 36415; 71046; 80048; 81001; 85025; 93005; 93010

== ENCOUNTER → 2020-01-21 | Day surgery (SDC) | payer MEDICARE, MEDICAID ==
[~2020-01-21] MED LIST changes: +(PENDING PHARMACY ID) (Ropinirole Hcl [Requip] 1 MG) PO SCH; +ACETAMINOPHEN 325 MG TABLET PO PRN; +ALBUTEROL SULFATE 0.083% NEB 2.5 MG/3 ML AMPUL NEB ONE; +ALBUTEROL SULFATE HFA (90 MCG/PUFF) 8 GM MDI (1 MDI/ER DISP) IH PRN; +ALBUTEROL SULFATE HFA (90 MCG/PUFF) 8 GM MDI IH PRN; +ALUMINUM HYDROXIDE PO PRN; +ASPIRIN 81 MG TABLET, ENT COATED PO SCH; +BUPIVACAINE INJ/PF LIPOSOME/PF 266 MG/20 ML SDV ONE; +CEFAZOLIN INJ 1 GM VIAL ONE; +DEXAMETHASONE SOD PHOSPHATE INJ 4 MG/1 ML VIAL ONE; +DIPHENHYDRAMINE HCL 50 MG/ML VIAL IV PRN; +FENTANYL CITRATE INJ/PF 100 MCG/2 ML AMPUL IV PRN; +FENTANYL CITRATE INJ/PF 100 MCG/2 ML AMPUL ONE; +FERROUS SULFATE 325 MG TABLET PO SCH; +IBUPROFEN 800 MG in NORMAL SALINE 250 ML IV SCH; +LIDOCAINE 0.5% INJ-PF (5 MG/ML) 50 ML SDV ONE; +MAG HYDROX/AL HYDROX/SIMETH SUSP 30 ML UDCUP PO PRN; +MAGNESIUM HYDROXIDE PO PRN; +MEPERIDINE HCL/PF INJ 25 MG/1 ML DISP.SYRIN IV PRN; +MIDAZOLAM 2 MG/2 ML INJ ONE; +MONTELUKAST SODIUM 10 MG TABLET PO SCH; +MORPHINE SULFATE 10 MG/ML INJ IV PRN; +ONDANSETRON 4 MG TAB.RAPDIS PO PRN; +ONDANSETRON HCL 8 MG TABLET PO PRN; +ONDANSETRON HCL INJ/PF 4 MG/2 ML SDV IV PRN; +ONDANSETRON HCL INJ/PF 4 MG/2 ML SDV ONE; +OXYCODONE HCL IR 5 MG TABLET PO PRN; +OXYCODONE HCL SR 10 MG TABLET PO ONE; +PANTOPRAZOLE SODIUM 20 MG TABLET.DR PO ONE; +PANTOPRAZOLE SODIUM 40 MG TABLET.DR PO SCH; +PRENATAL VITAMIN W DHA CAPSULE PO SCH; +PROMETHAZINE HCL INJ 25 MG/1 ML VIAL IV PRN; +PROMETHAZINE HCL INJ 25 MG/1 ML VIAL ONE; +PROPOFOL INJ 200 MG/20 ML VIAL IV ONE; +RINGERS SOLUTION,LACTATED 1,000 ML IV PRN; +ROPINIROLE HCL 1 MG TABLET PO SCH; +SENNOSIDES/DOCUSATE 8.6-50 MG 1 EACH TABLET PO SCH; +SIMETHICONE PO PRN; +SUCCINYLCHOLINE CHLORIDE INJ 200 MG/10 ML VIAL ONE; +TRANEXAMIC ACID INJ/PF 1,000 MG/10 ML SDV IV ONE; +TRANEXAMIC ACID INJ/PF 1,000 MG/10 ML SDV IV PRN; +TRANEXAMIC ACID INJ/PF 1,000 MG/10 ML SDV ONE; +VANCOMYCIN HCL 1,000 MG in DEXTROSE 5%-WATER 250 ML IV ONE; +ZOLPIDEM TARTRATE 5 MG TABLET PO PRN; +[UNRECOGNIZED DRUG - OTHER] PO PRN
--- NOTE | 2020-01-21 08:24 | Operative Report ---
Operative Report DATE OF SURGERY: 01/21/20 PREOPERATIVE DIAGNOSIS: Right knee arthritis OPERATION: Right knee arthroplasty SURGEON: MERVAT KEY ANESTHESIA: GA TISSUE REMOVED OR ALTERED: Bone to pathology ESTIMATED BLOOD LOSS: 75 PROCEDURE: Implants used: Femur: [place] triathlon size 5 CR femur Tibia: 5 tibia Tibial liner: 9 mm CS insert Patella: 38 mm oval patella Procedure with the patient supine on the operating table the right the limb is prepped and draped in a sterile fashion. The limb was elevated for exsanguination and the tourniquet inflated to 280 torr. A standard midline median parapatellar approach the knee is taken. Access is gained to the femoral canal through the intercondylar notch. Intramedullary alignment instrumentation used to resect 10 mm of distal femur in 5 of valgus. Sizing guide indicated a size 5 femur. Appropriate cutting jig is then used to fashion anterior posterior and chamfer cuts. A trial reduction femurs performed and this is judged to be adequate. Attention was next turned to the tibia. Using an extra medullary alignment system 9 millimeters was resected off the lateral tibial plateau. This is sized to a size 5 tibia. A trial reduction was now performed with a 5 femur and a 5 tibia using a 9 millimeters spacer. It is full extension and central patellofemoral tracking. The articular surface the patella was next resected using an oscillating saw. All trial implants were removed. Polymethylmethacrylate is mixed and used to cement the above implants in place. On adequate curing the cement excess cement was removed the tourniquet was deflated hemostasis obtained the wound is then closed in layers using interrupted Vicryl followed by jazz. A sterile compressive dressing was applied and the patient returned to recovery room in satisfactory condition.
--- NOTE | 2020-01-21 09:27 | RADIOLOGY REPORT (SQ) ---
EXAM DESCRIPTION: KNEE RIGHT 2 VIEWS COMPLETED DATE/TIME: 01/21/2020 9:16 am REASON FOR STUDY: Post OP -Long Cassette in PACU M17.11 UNILATERAL PRIMARY OSTEOARTHRITIS, RIGHT KN EE COMPARISON: None. NUMBER OF VIEWS: Two view(s). TECHNIQUE: Digital radiographic images of the right knee post-procedure. LIMITATIONS: None. FINDINGS: BONES: No worrisome or unexpected findings post-procedure. DEVICE: Total knee arthroplasty. SOFT TISSUES: No worrisome findings. Expected postoperative soft tissue changes. IMPRESSION: 1. SATISFACTORY POSTOPERATIVE RIGHT KNEE. TECHNICAL DOCUMENTATION: JOB ID: [id number] 2010 [employer]- All Rights Reserved Reading location - IP/workstation name: [email or web address]
[2020-01-21] MEDS: IBUPROFEN 800 MG in NORMAL SALINE 250 ML IV SCH ×2 (14:48→21:47)
[2020-01-21] MEDS: GABAPENTIN 300 MG CAPSULE PO SCH ×2 (14:51→21:47)
[2020-01-21] MEDS: DICYCLOMINE HCL 20 MG TABLET PO SCH (17:34)
[2020-01-21] MEDS: OXYCODONE HCL SR 10 MG TABLET PO SCH (17:35)
[2020-01-22 02:38] VITALS: BP 98/64
[2020-01-22] MEDS: OXYCODONE HCL SR 10 MG TABLET PO SCH (05:09)
[2020-01-22] MEDS: IBUPROFEN 800 MG in NORMAL SALINE 250 ML IV SCH (05:09)
[2020-01-22] MEDS: GABAPENTIN 300 MG CAPSULE PO SCH (05:10)
[2020-01-22 05:16] LABS: HEMATOCRIT 28.5 % (36.0-47.0); HEMOGLOBIN 9.9 g/dL (12.0-15.5); MEAN CORPUSCULAR HEMOGLOBIN 32.8 pg (27.0-33.4); MEAN CORPUSCULAR HGB CONC 34.6 g/dL (32.0-36.0); MEAN CORPUSCULAR VOLUME 95 fl (80-97); PLATELET COUNT 186 10^3/uL (150-450); RED BLOOD COUNT 3.02 10^6/uL (3.72-5.28); RED CELL DISTRIBUTION WIDTH 12.6 % (11.5-14.0); WHITE BLOOD COUNT 5.6 10^3/uL (4.0-10.5)
[2020-01-22 05:46] LABS: ANION GAP 6 (5-19); BLOOD UREA NITROGEN 15 mg/dL (7-20); CALCIUM 8.8 mg/dL (8.4-10.2); CARBON DIOXIDE 31 mmol/L (22-30); CHLORIDE 94 mmol/L (98-107); GLUCOSE 110 mg/dL (75-110); POTASSIUM 4.3 mmol/L (3.6-5.0)
--- NOTE | 2020-01-22 06:50 | PDOC DISCHARGE SUMMARY ---
Impression - Admit/DC Date/PCP Admission Date/Primary Care Provider: 01/21/20 05:35 LINDA MONTES PA-C Discharge Date: 01/22/20 - Discharge Diagnosis (1) Arthritis of right knee Is this a current diagnosis for this admission?: Yes - Additional Information Resuscitation Status: Full Code Discharge Diet: Regular Discharge Activity: Balance Activity w/Rest, No tub bath Referrals: MERVAT KEY MD [ACTIVE STAFF] - 02/05/20 10:00 am Home Medications: Albuterol Sulfate [Proair HFA Inhalation Aerosol 8.5 gm MDI] 2 puff IH Q4HP PRN 10/08/19 Aspirin [Adult Low Dose Aspirin EC] 81 mg PO DAILY 10/08/19 Dicyclomine HCl [Bentyl 20 mg Tablet] 20 mg PO BID 10/08/19 Ferrous Sulfate [Feosol 325 mg Tablet] 325 mg PO DAILY 10/08/19 Gabapentin [Neurontin 300 mg Capsule] 600 mg PO Q8 10/08/19 Lidocaine HCl [Xylocaine 2% Viscous Soln 15 ml Udcup] 15 ml PO DAILYP PRN MDD M IX WITH MYLANTA 10/08/19 Mag Hydrox/Aluminum Hyd/Simeth [Mylanta Maximum Strength Liq] 15 ml PO DAILYP PRN MDD MIX WITH LIDOCAINE 10/08/19 Naproxen [Naprosyn] 500 mg PO BID 10/08/19 Ondansetron HCl [Zofran 8 mg Tablet] 8 mg PO BIDP PRN 10/08/19 Oxycodone HCl 15 mg PO Q8HP PRN 10/08/19 Ropinirole HCl [Requip] 1 mg PO QHS 10/08/19 Valsartan/Hydrochlorothiazide [Valsartan-Hctz 160-25 mg Tab] 1 each PO DAILY 01/21/20 History of Present Illiness History of Present Illness: CIERRA DAVIS is a 74 year old female Patient is a 74-year-old black female with progressive right knee pain and functional disability second osteoarthritis. Patient is been there for elective right knee arthroplasty. Hospital Course Hospital Course: Patient is admitted through the operating where she undergoes an uncomplicated right knee arthroplasty. She is returned to the floor in satisfactory condition. She ambulates 300 feet with physical therapy on the day of surgery. Compressive dressing is removed on the morning of postop day 1. Underlying OpSite dressing is clean dry and intact. Physical Exam Vital Signs: Temp Pulse Resp BP Pulse Ox 36.7 C 74 19 98/64 L 94 01/22/20 01:07 01/22/20 01:07 01/22/20 01:07 01/22/20 01:07 01/22/20 01:07 Intake & Output 01/20/20 01/21/20 01/22/20 06:59 06:59 06:59 Intake Total 0 3100 Output Total 50 Balance 0 3050 Weight 76 kg General appearance: PRESENT: no acute distress Head exam: PRESENT: normocephalic Respiratory exam: PRESENT: unlabored Cardiovascular exam: PRESENT: RRR Pulses: PRESENT: +1 pedal pulses bilateral Vascular exam: PRESENT: normal capillary refill Musculoskeletal exam: PRESENT: other - Right knee OpSite dressing clean dry and intact. Minimal pedal edema. Distal neurovascular examination is intact. Results Laboratory Results: WBC 5.6 10^3/uL (4.0-10.5) 01/22/20 04:45 RBC 3.02 10^6/uL (3.72-5.28) L 01/22/20 04:45 Hgb 9.9 g/dL (12.0-15.5) L 01/22/20 04:45 Hct 28.5 % (36.0-47.0) L 01/22/20 04:45 MCV 95 fl (80-97) 01/22/20 04:45 MCH 32.8 pg (27.0-33.4) 01/22/20 04:45 MCHC 34.6 g/dL (32.0-36.0) 01/22/20 04:45 RDW 12.6 % (11.5-14.0) 01/22/20 04:45 Plt Count 186 10^3/uL (150-450) 01/22/20 04:45 Sodium 131.1 mmol/L (137-145) L 01/22/20 04:45 Potassium 4.3 mmol/L (3.6-5.0) 01/22/20 04:45 Chloride 94 mmol/L (98-107) L 01/22/20 04:45 Carbon Dioxide 31 mmol/L (22-30) H 01/22/20 04:45 Anion Gap 6 (5-19) 01/22/20 04:45 BUN 15 mg/dL (7-20) 01/22/20 04:45 Creatinine 0.66 mg/dL (0.52-1.25) 01/22/20 04:45 Est GFR ( Amer) > 60 (>60) 01/22/20 04:45 Est GFR (MDRD) Non-Af > 60 (>60) 01/22/20 04:45 Glucose 110 mg/dL (75-110) 01/22/20 04:45 Calcium 8.8 mg/dL (8.4-10.2) 01/22/20 04:45 Impressions: Knee X-Ray 01/21/20 08:27 IMPRESSION: 1. SATISFACTORY POSTOPERATIVE RIGHT KNEE. Plan Plan of Treatment: Patient to be discharged home with home health services and DME. Follow-up with Dr. Key and [facility] for surgery in 2 weeks for staple removal. Stroke Is this a Stroke Patient?: No Stroke Pt being discharged on Anti-thrombolytic therapy?: Yes Acute Heart Failure - Is this a Heart Failure Patient?: No
[2020-01-22] MEDS: DICYCLOMINE HCL 20 MG TABLET PO SCH (08:40)
== END ==
LOC: OROUT 05:35 → UNDOADMIN 05:35 → INOR 05:35 → EDSTATUS 07:30 → 4S 10:50 → INOR 10:50 → UNDODISIN 01-22 09:33
PROVIDERS: ATTEND Orthopaedic Surgery
DX: M17.11 Unilateral primary osteoarthritis, right knee (principal); Z79.899 Other long term (current) drug therapy; Z79.82 Long term (current) use of aspirin; Z79.51 Long term (current) use of inhaled steroids; J45.909 Unspecified asthma, uncomplicated; I10 Essential (primary) hypertension; E78.5 Hyperlipidemia, unspecified
CPT/HCPCS: 36415; 85027; 80048; 88305 ×2; 88311; 73560; 94799; 97110; 97116; 97162; 27447; A9270 ×10; J2250; J0690; J1100; J3010; J3490 ×2; J2550; J0330; J2405; J7060; J7050; J2704; J3370; C9290; J1741

== ENCOUNTER 2020-11-09 08:14 | Emergency (ER) | payer MEDICAID, MEDICARE ==
[2020-11-09 09:30] LABS: ABSOLUTE EOSINOPHILS # (AUTO) 0.1 10^3/uL (0.0-0.6); ABSOLUTE LYMPHOCYTES (AUTO) 0.9 10^3/uL (0.5-4.7); ABSOLUTE MONOCYTES (AUTO) 0.3 10^3/uL (0.1-1.4); ABSOLUTE NEUT (AUTO) 2.7 10^3/uL (1.7-8.2); BASOPHILS % (AUTO) 0.9 % (0-2); EOSINOPHILS % (AUTO) 1.9 % (0-6); HEMATOCRIT 36.4 % (36.0-47.0); HEMOGLOBIN 12.4 g/dL (12.0-15.5); LYMPHOCYTES % (AUTO) 22.3 % (13-45); MEAN CORPUSCULAR HEMOGLOBIN 32.6 pg (27.0-33.4); MEAN CORPUSCULAR VOLUME 96 fl (80-97); MONOCYTES % (AUTO) 7.6 % (3-13); PLATELET COUNT 215 10^3/uL (150-450); RED CELL DISTRIBUTION WIDTH 12.7 % (11.5-14.0); SEGMENTED NEUTROPHILS % (AUTO) 67.3 % (42-78); TOTAL CELLS COUNTED % (AUTO) 100 %; WHITE BLOOD COUNT 4.1 10^3/uL (4.0-10.5)
[2020-11-09 09:53] LABS: ALKALINE PHOSPHATASE 76 U/L (38-126); ANION GAP 6 (5-19); ASPARTATE AMINO TRANSFERASE 34 U/L (14-36); BILIRUBIN,DIRECT 0.1 mg/dL (0.0-0.4); BLOOD UREA NITROGEN 8 mg/dL (7-20); CALCIUM 9.7 mg/dL (8.4-10.2); CARBON DIOXIDE 29 mmol/L (22-30); CHLORIDE 99 mmol/L (98-107); GLUCOSE 97 mg/dL (75-110); POTASSIUM 4.2 mmol/L (3.6-5.0); TOTAL PROTEIN 7.8 g/dL (6.3-8.2)
[2020-11-09 09:55] LABS: APPEARANCE,URINE SLIGHTLY-CLOUDY; BILIRUBIN,URINE NEGATIVE (NEGATIVE); COLOR,URINE YELLOW; GLUCOSE, URINE NEGATIVE (NEGATIVE); KETONES,URINE NEGATIVE (NEGATIVE); LEUKOCYTE ESTERASE,URINE NEGATIVE (NEGATIVE); NITRITE,URINE NEGATIVE (NEGATIVE); PROTEIN,URINE NEGATIVE (NEGATIVE); URINE SPECIFIC GRAVITY 1.012; UROBILINOGEN,URINE NEGATIVE mg/dL (<2.0)
[2020-11-09] MEDS ORDERED: FENTANYL CITRATE INJ/PF 100 MCG/2 ML AMPUL IV ONE (10:00)
[2020-11-09] MEDS ORDERED: ONDANSETRON HCL INJ/PF 4 MG/2 ML SDV IV ONE (10:00)
--- NOTE | 2020-11-09 10:13 | ER Document Report ---
ED General - General Chief Complaint: Blood Pressure Problem Stated Complaint: HIGH BLOOD PRESSURE Time Seen by Provider: 11/09/20 09:38 Primary Care Provider: LINDA MONTES PA-C [Primary Care Provider] - Follow up as needed Notes: Chief complaint: Blood pressure problems and headache. HPI: 74-year-old female followed by PENNY Gallagher with history of hypertension presents today because of problems with her blood pressure and intermittent headache. Supplemental history is obtained from the patient's daughter. Reportedly this lady had been on a combination hydrochlorothiazide/valsartan and for a number years with blood pressure well controlled. Primary provider recently stopped this because her blood pressure was "getting too low" and I switched her over to amlodipine 5 mg daily. Since then her pressure has been very labile in the mornings has been going up as high as 180. She has had some intermittent headache. Her headache is particularly bad today as described as generalized throbbing headache. She had one episode of vomiting prior to arrival. She denies any focal neurologic symptoms. She denies any chest pain or shortness of breath. Patient is a cigarette smoker. TRAVEL OUTSIDE OF THE [place] IN LAST 30 DAYS: No - Related Data Allergies/Adverse Reactions: metoclopramide [From Reglan] Adverse Reaction (Intermediate, Verified 11/09/20 08:28) Hives & tardive dyskinesia latex Adverse Reaction (Verified 11/09/20 08:28) Itching Home Medications: amlodipine. fluticasone. zofran. valsartan. ferrous sulfate. mupirocin. sulfamethoxazole. dicyclomine. meloxicam. ropinirole. proair Past Medical History - General Information source: Patient, Relative, [facility] Records - Social History Smoking Status: Current Every Day Smoker Chew tobacco use (# tins/day): No Frequency of alcohol use: None Drug Abuse: None Family History: Reviewed & Not Pertinent Patient has homicidal ideation: No - Past Medical History Cardiac Medical History: Reports: Hx Hypercholesterolemia, Hx Hypertension Denies: Hx Atrial Fibrillation, Hx Congestive Heart Failure, Hx Coronary Artery Disease, Hx DVT, Hx Heart Attack, Hx Peripheral Vascular Disease, Hx Pulmonary Embolism, Hx Heart Murmur Pulmonary Medical History: Reports: Hx Asthma, Hx Bronchitis, Hx COPD Denies: Hx Pneumonia, Hx Respiratory Failure, Hx Sleep Apnea, Hx Tuberculosis Neurological Medical History: Denies: Hx Cerebrovascular Accident, Hx Seizures Endocrine Medical History: Denies: Hx Diabetes Mellitus Type 1, Hx Diabetes Mellitus Type 2, Hx Hyperthyroidism, Hx Hypothyroidism Renal/ Medical History: Denies: Hx Kidney Stones, Hx Peritoneal Dialysis Malignancy Medical History: Denies: Hx Leukemia, Hx Lung Cancer GI Medical History: Reports: Hx Diverticulitis, Hx Gastroesophageal Reflux Di sease. Denies: Hx Cirrhosis, Hx Crohn's Disease, Hx Hepatitis, Hx Hiatal Hernia, Hx Irritable Bowel, Hx Liver Failure, Hx Pancreatitis, Hx Ulcer Musculoskeletal Medical History: Reports Hx Arthritis, Denies Hx Fibromyalgia, Denies Hx Muscular Dystrophy Psychiatric Medical History: Denies: Hx Bipolar Disorder, Hx Depression, Hx Post Traumatic Stress Disorder, Hx Schizophrenia Traumatic Medical History: Reports: Hx Fractures - left hip Infectious Medical History: Denies: Hx C-Diff, Hx Hepatitis, Hx HIV, Hx MRSA Past Surgical History: Reports: Hx Cholecystectomy, Hx Hysterectomy, Hx Orthopedic Surgery - Left hip surgery, 03/21/2017. Prior back surgery., Hx Tubal Ligation. Denies: Hx Appendectomy, Hx Bowel Surgery, Hx Section, Hx Colostomy, Hx Coronary Artery Bypass Graft, Hx Gastric Bypass Surgery, Hx Herniorrhaphy, Hx Mastectomy, Hx Pacemaker, Hx Tonsillectomy - Immunizations Hx Diphtheria, Pertussis, Tetanus Vaccination: Yes - NOT SURE IF UP TO DATE Hx Pneumococcal Vaccination: 11/21/17 Review of Systems - Review of Systems Notes: Constitutional: Negative for fever. HENT: Negative for sore throat. Eyes: Negative for visual changes. Cardiovascular: Negative for chest pain. Respiratory: Negative for shortness of breath. Gastrointestinal: As per HPI. Genitourinary: Negative for dysuria. Musculoskeletal: Negative for back pain. Skin: Negative for rash. Neurological: As per HPI. 10 point ROS negative except as marked above and in HPI. Physical Exam - Vital signs Vitals: Temp Pulse Resp BP Pulse Ox 98.8 F 93 18 163/86 H 95 11/09/20 08:21 11/09/20 08:21 11/09/20 08:21 11/09/20 08:21 11/09/20 08:21 Notes: GENERAL: Elderly female who is very uncomfortable vomiting and holding her head. SKIN: Good turgor no rashes. HEAD: Normocephalic atraumatic. EYES: PERRLA. EOMI. Conjunctivae and sclerae clear. EARS: CANALS AND TMS CLEAR. NOSE: CLEAR. MOUTH: Moist mucosa. Good dentition. No stridor or edema. No drooling. NECK: Supple. No masses or thyromegaly. No adenopathy. Carotids 2+ without bruits. No JVD. BACK: Symmetrical without tenderness. CHEST: Respirations unlabored. Breath sounds clear and symmetrical. HEART: Regular rhythm. No murmur gallop or rub. ABDOMEN: Soft nontender without masses, organomegaly or rebound. Bowel sounds normally active. No bruits. GENITALIA: Deferred. EXTREMITIES: No edema. No calf tenderness. Cap refill less than 1.5 seconds. Dorsalis pedis and posterior tibial pulses 3+ and symmetrical. NEUROLOGICAL: GCS 15. Alert and oriented x3. Fluent speech. Cranial nerves II through XII intact. Sensorimotor and cerebellar normal. Normal tone. PSYCHIATRIC: Appropriate affect. Course - Re-evaluation Re-evalutation: 11/09/20 13:30 Elderly lady with poorly controlled hypertension in today with headache and elevated blood pressure. Negative head CT. Nonfocal neurologic exam. Labs unremarkable. She received 1 dose of morphine here for her headache and was given some oral clonidine for lowering her blood pressure. She feels much better at this time and wants to go home. Findings, clinical impression and plan of treatment have been discussed with patient/family. Understanding of current findings and recommendations has been acknowledged by them and there is agreement regarding disposition and follow-up. - Vital Signs Vital signs: Temp Pulse Resp BP Pulse Ox 98.8 F 93 17 163/86 H 99 11/09/20 08:21 11/09/20 08:21 11/09/20 09:28 11/09/20 08:21 11/09/20 09:28 - Laboratory Results Result Diagrams: 11/09/20 09:15 11/09/20 09:15 Laboratory Results Interpreted: 11/09/20 09:15 Sodium 133.9 L Critical Laboratory Results Reviewed: No Critical Results - Radiology Results Radiology Results Interpreted: 11/09/20 11:[address] 11/09/20 09:59 IMPRESSION: NORMAL BRAIN CT WITHOUT CONTRAST. EVIDENCE OF ACUTE STROKE: NO. Critical Radiology Results Reviewed: No Critical Results - EKG Interpretation by Me Additional EKG results interpreted by me: 11/09/20 11:35 Twelve-lead EKG reviewed by me contemporaneously: 1007 hrs. Indication for study: Hypertension Rhythm: Normal sinus Rate: 78 Intervals: Normal intervals QRS axis: +[address]/T wave changes: Nonspecific Comparison with prior tracing: No significant interval change compared with prior study 01/14/2020 Interpretation: Nonspecific T wave changes Discharge - Discharge Clinical Impression: Hypertensive urgency Headache Qualifiers: Headache type: unspecified Headache chronicity pattern: acute headache Intractability: not intractable Qualified Code(s): R51.9 - Headache, unspecified Condition: Stable Disposition: HOME, SELF-CARE Instructions: Hydrochlorothiazide ([facility]) Additional Instructions: Stay on your current blood pressure medication. You are receiving an additional prescription for fluid medicine to help keep your blood pressure under better control. You may take Tylenol as necessary for your headache. See your doctor within the next 48 hours for recheck and reevaluation of your blood pressure. Return here as needed for new or worsening symptoms: Pain that is worsening or unimproved Uncontrolled vomiting High fever or shaking chills Overall worsening Prescriptions: Hydrochlorothiazide 12.5 mg PO DAILY 30 Days #30 tablet Referrals: LINDA MONTES PA-C [Primary Care Provider] - Follow up as needed
--- NOTE | 2020-11-09 10:32 | RADIOLOGY REPORT (SQ) ---
EXAM DESCRIPTION: CT HEAD WITHOUT IMAGES COMPLETED DATE/TIME: 11/09/2020 10:22 am REASON FOR STUDY: headache COMPARISON: 04/06/2011. TECHNIQUE: Axial images acquired through the brain without intravenous contrast. Images reviewed wi th bone, brain and subdural windows. Additional sagittal and coronal reconstructions were generated. Images stored on PACS. All CT scanners at this facility use dose modulation, iterative reconstruction, and/or weight based d osing when appropriate to reduce radiation dose to as low as reasonably achievable (ALARA). [facility]: Dose Right [facility]: CareDose [facility]: Dose Right [facility]: Teradose 4D [facility]: Smart [employer] RADIATION DOSE: CT Rad equipment meets quality standard of care and radiation dose reduction techniq ues were employed. CTDIvol: 48.8 mGy. DLP: 860 mGy-cm. mGy. LIMITATIONS: None. FINDINGS: VENTRICLES: Normal size and contour. CEREBRUM: No masses. No hemorrhage. No midline shift. No evidence for acute infarction. Normal gra y/white matter differentiation. No areas of low density in the white matter. CEREBELLUM: No masses. No hemorrhage. No alteration of density. No evidence for acute infarction. EXTRAAXIAL SPACES: No fluid collections. No masses. ORBITS AND GLOBE: No intra- or extraconal masses. Normal contour of globe without masses. CALVARIUM: No fracture. PARANASAL SINUSES: No fluid or mucosal thickening. SOFT TISSUES: No mass or hematoma. OTHER: No other significant finding. IMPRESSION: NORMAL BRAIN CT WITHOUT CONTRAST. EVIDENCE OF ACUTE STROKE: NO. COMMENT: Quality ID # [id number]: Final reports with documentation of one or more dose reduction techniques (e.g., Automated exposure control, adjustment of the mA and/or kV according to patient size, use of iterative reconstruction technique) TECHNICAL DOCUMENTATION: JOB ID: [id number] 2010 [employer]- All Rights Reserved Reading location - IP/workstation name: [email or web address]
[2020-11-09 10:36] LABS: INTERNATIONAL RATION (INR) 1.08; PROTHROMBIN TIME 14.2 SEC (11.4-15.4)
[2020-11-09 10:37] LABS: PARTIAL THROMBOPLASTIN TIME 33.1 SEC (23.5-35.8)
[2020-11-09] MEDS ORDERED: CLONIDINE HCL 0.1 MG TABLET PO ONE ×2 (11:13→12:30)
--- NOTE | 2020-11-09 12:23 | EKG REPORT ---
SEVERITY:- BORDERLINE ECG - SINUS RHYTHM BORDERLINE T ABNORMALITIES, INFERIOR LEADS : Confirmed by: Nicole Park MD 09-Nov-2020 12:22:29
--- NOTE | 2020-11-09 12:27 | RADIOLOGY REPORT (SQ) ---
EXAM DESCRIPTION: CHEST SINGLE VIEW<Procedure Description>CHEST SINGLE VIEW IMAGES COMPLETED DATE/TIME: 11/09/2020 12:06 pm<Completed Time>11/09/2020 12:06 pm REASON FOR STUDY: HTN<Reason For Exam>HTN <ADM DX> COMPARISON: 01/14/2020 NUMBER OF VIEWS: One. TECHNIQUE: Single frontal radiographic view of the chest acquired. RADIATION DOSE: <RADIATION DOSE> LIMITATIONS: None. FINDINGS: LUNGS AND PLEURA: No pneumothorax. No consolidation or pleural effusion. MEDIASTINUM AND HILAR STRUCTURES: Stable. HEART AND VASCULAR STRUCTURES: Stable. BONES: No acute findings. HARDWARE: None in the chest. OTHER: No other significant findings. IMPRESSION: NO ACUTE FINDINGS. TECHNICAL DOCUMENTATION: JOB ID: [id number]<Job ID>[id number] 2010 [employer]- All Rights Reserved Reading location - IP/workstation name: [email or web address]
[2020-11-09 13:40] VITALS: BP 143/81
== END 2020-11-09 13:38 | disposition home or self-care (01) ==
LOC: ER 08:14
DX: I16.0 Hypertensive urgency (principal); R51.9 Headache, unspecified; F17.200 Nicotine dependence, unspecified, uncomplicated; I10 Essential (primary) hypertension; E78.00 Pure hypercholesterolemia, unspecified; Z91.040 Latex allergy status
CPT/HCPCS: 93005; 99285; 96374; 96375; 36415; 87086; 85025; 85610; 85730; 80053; 81001; 71045; 70450; 93010; A9270; J3010; J2405